=== PATIENT | male | born 1950 | race Caucasian/White ===

== ENCOUNTER 2016-05-17 12:18 | Emergency (ER) | payer MEDICARE, BC ==
[~2016-05-17 12:18] MED LIST: ANDR1.62 TOPICAL; ASPI81TA19 PO; ATOR1TAB18 PO; DIGO0.25 PO; IPRA0.03 EACH NARE; ISOS30TA3 PO; LATA0.002 EACH EYE; LEXA20TA PO; MISC1CAP2 PO; MURO5SOL EACH EYE; NITR1SUB3 SL; OXYC1TAB36 PO; RAMI5CAP PO; SPIR25TA PO; TOPR100T PO; ZANT150T2 PO; [UNRECOGNIZED DRUG - CODE] PO
[2016-05-17 12:19] VITALS: BP 139/89; PULSE 68; RESP 20; TEMP 98.8; O2SAT 99
--- NOTE | 2016-05-17 12:24 | PD ---
Physical Exam Time Seen by Provider: 12:21 Narrative 65 yowm presents for evaluation after mechanical fall. Fell yesterday , tripped over curb, broke a tooth/chipped another tooth, saw dentist yesterday. Complaining of left sided rib pain. VSS Seen at triage desk. Awaiting bed placement. Data Data Last Documented VS Vital Signs Date Time Temp Pulse Resp B/P Pulse Ox O2 Delivery O2 Flow Rate FiO2 05/17/16 12:19 98.8 68 20 139/89 99 Room Air [facility] Medical Record Reviewed: Yes Supervised Visit with LEONIE: Yes Moshe Cody May 17, 2016 12:24
--- NOTE | 2016-05-17 13:06 | PD ---
HPI Chief Complaint: Fall Time Seen by Provider: 13:06 Travel History International Travel<30 days: No Contact w/Intl Traveler<30days: No Traveled to known affect area: No History of Present Illness HPI 65-year-old legally blind male presents to the emergency Department with complaint of left rib cage pain and left wrist pain after tripping and falling yesterday while walking with his . He said he did hit his mouth and knocked his crown out which he had replaced yesterday by the dentist. He did not hit his head and denies loss of consciousness. Denies headache, lightheadedness, dizziness, change in mentation, confusion, disorientation. Denies focal deficits or weakness. Denies anticoagulants. Denies neck pain or back pain. Has been ambulatory since after the fall. Denies other extremity pain other than the left wrist pain. Denies chest pain, shortness of breath, abdominal pain, nausea, vomiting. Denies hematemesis, hematochezia, hematuria, hemoptysis. Rib cage pain is worse with certain movements and taking deep breaths. This pain is worse with movement. He takes oxycodone for chronic back pain and has been taking that with some relief of rib cage and wrist pain. No known allergies. No other medical complaints. Patient has pacemaker. No other modifying factors or associated signs and symptoms. PFSH Past Medical History Hx Anticoagulant Therapy: Yes (PT TAKES 162MG ASPIRIN DAILY) Arthritis: Yes Asthma: No Autoimmune Disease: No Blood Disorders: No Anxiety: No Depression: Yes Heart Rhythm Problems: No Cancer: No Cardiac Catheterization: Yes Cardiovascular Problems: Yes ([place] 8 YEARS AGO, 4 STENTS AND DEFIBRILLATOR) High Cholesterol: Yes Chemotherapy: No Chest Pain: No Congestive Heart Failure: Yes COPD: No Cerebrovascular Accident: No Diabetes: No Diminished Hearing: No Endocrine: No Gastrointestinal Disorders: No GERD: Yes Glaucoma: No Genitourinary: No Headaches: No Hepatitis: No Hiatal Hernia: No Hypertension: Yes Immune Disorder: No Kidney Stones: No Musculoskeletal: Yes Neurologic: Yes (NUMBNESS HANDS, HEAD, NECK, 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 Cardiac Surgery: Yes (DEFIBRILLATOR PLACED 12/13) Cholecystectomy: No Coronary Stent: Yes (4 STENTS 07/13) Ear Surgery: No Endocrine Surgery: No Eye Surgery: Yes (BILATERAL CATARACTS WITH LENS IMPLANT IN 1987, BILATERAL WITH REAPIR IN ) Genitourinary Surgery: No Gynecologic Surgery: No Hysterectomy: No Insulin Pump: No Joint Replacement: No Neurologic Surgery: Yes (CERVICAL FUSION 2000) Oral Surgery: No Pacemaker: Yes (AND DEFIB/MODELS T125/0184/4135 SERIAL [id number] TESHA) Thoracic Surgery: No Other Surgery: Yes Social History Alcohol Use: Yes (2/NIGHT) Tobacco Use: No Substance Use: No Allergies-Medications (Allergen,Severity, Reaction): Coded Allergies: No Known Allergies (Verified , 05/17/16) Reported Meds & Prescriptions Reported Meds & Active Scripts Active Reported Zantac (Ranitidine HCl) 150 Mg Tab Unknown Dose PO BID Oxycodone-Acetaminophen 10-325 mg Tab 1 Tab PO Q6H PRN Vitamin A 10,000 Unit Tab 15,000 Units PO DAILY Androgel Pump Topical (Testosterone) 1.62 % Gel 101.25 Mg TOPICAL DAILY Spironolactone 25 Mg Tab 25 Mg PO DAILY Joshua 128 Opth Drops (Sodium Chloride Opth Drops) 5% Soln 1 Drop EACH EYE BID Ramipril 5 Mg Cap 5 Mg PO DAILY @ 1400 Nitroglycerin SL (Nitroglycerin) 0.4 Mg Subl 0.4 Mg SL DIRECTED PRN ONE TABLET UNDER THE TONGUE NEEDED FOR CHEST PAIN, MAY REPEAT EVERY FIVE MINUTES FOR A TOTAL OF 3 DOSES OR CALL 911 IF NO RELIEF Saw Bety (Fourandhalf Natural Products) 1 Cap 1 Cap PO DAILY Toprol XL (Metoprolol Succinate) 100 Mg Tab 100 Mg PO DAILY Latanoprost Opth Drops (Latanoprost) 0.005% Drops 1 Drop EACH EYE HS Refrigerate until opened. Isosorbide Mononitrate ER (Isosorbide Mononitrate) 30 Mg Gibson 30 Mg PO DAILY Ipratropium Nasal 0.03% Chester 1 Chester EACH NARE TID Lexapro (Escitalopram Oxalate) 20 Mg Tab 20 Mg PO DAILY Digoxin 0.25 Mg Tab 0.25 Mg PO HS Atorvastatin (Atorvastatin Calcium) 80 Mg Tab 80 Mg PO HS Aspir-Low (Aspirin) 81 Mg Tabdr 162 Mg PO HS Review of Systems Except as stated in HPI: all other systems reviewed are Neg Physical Exam Narrative GENERAL: Well-nourished, well-developed male patient, in no acute distress; legally blind SKIN: Warm and dry. Pacemaker noted to left chest. HEAD: Atraumatic. Normocephalic. No facial or scalp abrasions or lacerations noted. EYES: Pupils equal and round at 3 mm with brisk reaction. No scleral icterus. No injection or drainage. No raccoon eyes. ENT: Mucosa pink and moist. No erythema or exudates. No uvular edema. No uvular , palatal, or tonsillar deviation. Airway patent. Nares without nasal blood, purulent drainage or septal hematoma. No rhinorrhea. EARS: Bilateral pinnae and external canals appear within normal limits. Bilateral tympanic membranes without erythema, dullness, hemotympanum or perforation. No otorrhea. No menendez signs. NECK: Moving freely. Trachea midline. No obvious deformities. CHEST: Left lateral rib cage at approximately the seventh and eighth rib with tenderness on palpation; without deformity or crepitance. No retractions or use of accessory muscles. CARDIOVASCULAR: Regular rate and rhythm. No murmur appreciated. RESPIRATORY: No accessory muscle use. Clear to auscultation. Breath sounds equal bilaterally. GASTROINTESTINAL: Abdomen soft, non-tender, nondistended. Hepatic and splenic margins not palpable. Bowel sounds are active 4 quadrants. MUSCULOSKELETAL: Left wrist with mild edema and without erythema or ecchymosis; with tenderness on palpation; with full range of motion which exacerbates pain; no obvious deformity. Left upper extremity supple and non-tense with 2+ radial pulse and sensory intact. No obvious deformities. No clubbing. No cyanosis. No edema. BACK: No obvious deformities. Patient sitting up in bed at 90. NEUROLOGICAL: Awake and alert. Oriented 3. No obvious cranial nerve deficits. Motor grossly within normal limits. Normal speech. Moves all extremities. 5/5 strength to all extremities. Sensory intact. PSYCHIATRIC: Appropriate mood and affect; insight and judgment normal. Data Data Last Documented VS Vital Signs Date Time Temp Pulse Resp B/P Pulse Ox O2 Delivery O2 Flow Rate FiO2 05/17/16 12:19 98.8 68 20 139/89 99 Room Air Orders Wrist, Complete ([id number]) (05/17/16 13:06) Ribs, Uni (W/Exp Cxr-Min 3vw) (05/17/16 13:06) Resp Incentive Spirometry (05/17/16 ) MDM Medical Decision Making Medical Screen Exam Complete: Yes Emergency Medical Condition: Yes Medical Record Reviewed: Yes Differential Diagnosis Fall, rib contusion, rib fracture, wrist sprain, wrist fracture Narrative Course 65-year-old male with left rib pain and left wrist injury after a mechanical fall yesterday. The patient is legally blind. He denies hitting his head or loss of consciousness. He did hit the front of his mouth and knocked a crown of his front tooth which he had replaced yesterday by the dentist. Denies neck pain or back pain. Patient takes oxycodone and to get this morning for chronic back pain. I did offer the patient a nonnarcotic for pain and he declined at this time. Left rib with respiratory chest x-ray ordered. Left wrist x-ray ordered. 1414: Left rib with expiratory chest x-ray unremarkable. Left wrist x-ray unremarkable. Wrist splint provided for support. Patient has pain medications at home. Incentive spirometer provided to the patient for deep breathing exercises. Patient verbalizes understanding and agreement with treatment plan. Patient is medically cleared and stable for discharge. Discussed reasons to return to the emergency department. Instructed patient to follow up with primary care provider. Patient agrees with treatment plan. The patients vital signs are stable and the patient is stable for outpatient follow-up and treatment. Patient discharged home, stable and in no acute distress. Diagnosis Primary Impression: Fall Qualified Code: W19.XXXA - Fall, initial encounter Additional Impressions: Contusion of rib on left side Qualified Code: S20.212A - Contusion of rib on left side, initial encounter Left wrist sprain Qualified Code: S63.502A - Left wrist sprain, initial encounter Referrals: Primary Care Physician Patient Instructions: Fall Prevention (ED), General Instructions, Rib Contusion (ED), Wrist Sprain (ED) Additional Instructions: Ibuprofen or Tylenol as directed and as needed for pain and inflammation Ice and/or heat to affected area to reduce pain and inflammation Incentive spirometer every 2 hours while awake for deep breathing exercises Wrist splint for support Follow-up primary care provider Return to the emergency department immediately with worsening of symptoms Med/Other Pt SpecificInfo: No Change to Meds, No Meds Exist/No RX given Disposition: 01 DISCHARGE HOME Condition: Stable Mia Juarez May 17, 2016 13:06
--- NOTE | 2016-05-17 13:54 | RADRPT ---
EXAM DATE/TIME: 05/17/2016 13:33 [facility] COMPARISON: No previous studies available for comparison. INDICATIONS : Left rib pain, fall. MEDICAL HISTORY : None. SURGICAL HISTORY : Pacemaker. ENCOUNTER: Initial ACUITY: 2 days PAIN SCORE: 8/10 LOCATION: Left lateral ribs FINDINGS: Mild cardiomegaly. Clear lungs. Pacer/ICD device noted. No obvious rib fractures. ACDF hardware overl ies the cervical spine. Degenerative changes of the thoracic and lumbar spine. CONCLUSION: No acute disease. Jason Hager MD on May 17, 2016 at 13:52 Board Certified Radiologist. This report was verified electronically.
--- NOTE | 2016-05-17 13:58 | RADRPT ---
EXAM DATE/TIME: 05/17/2016 13:44 [facility] COMPARISON: No previous studies available for comparison. INDICATIONS : Left wrist pain, fall. MEDICAL HISTORY : None. SURGICAL HISTORY : None. ENCOUNTER: Initial ACUITY: 2 days PAIN SCORE: 5/10 LOCATION: Left medial wrist FINDINGS: Normal bone density. No fracture or dislocation. Mild degenerative changes of the thumb basal joint. CONCLUSION: No acute disease. Jason Hager MD on May 17, 2016 at 13:56 Board Certified Radiologist. This report was verified electronically.
[2016-06-15] MEDS ORDERED: ASPI81CH CHEW (10:55)
[2016-07-20] MEDS ORDERED: [UNRECOGNIZED DRUG - OTHER] PO (14:52)
[2016-07-21] MEDS ORDERED: CELE50CA PO (11:28)
== END 2016-05-17 14:36 | disposition home or self-care (01) ==
LOC: NEPK 12:18
DX: S20.212A Contusion of left front wall of thorax, initial encounter (principal); S63.502A Unspecified sprain of left wrist, initial encounter; I10 Essential (primary) hypertension; E78.00 Pure hypercholesterolemia, unspecified; H54.8 Legal blindness, as defined in USA; G47.30 Sleep apnea, unspecified; W01.0XXA Fall on same level from slipping, tripping and stumbling without subsequent striking against object, initial encounter; Y93.01 Activity, walking, marching and hiking; Z79.82 Long term (current) use of aspirin; Z87.39 Personal history of other diseases of the musculoskeletal system and connective tissue; Z86.79 Personal history of other diseases of the circulatory system; Z87.19 Personal history of other diseases of the digestive system; Z86.69 Personal history of other diseases of the nervous system and sense organs; Z86.59 Personal history of other mental and behavioral disorders
CPT/HCPCS: 71101; 73110; 99284; L3908

== ENCOUNTER 2016-07-06 06:41 | Day surgery (SDC) | payer MEDICARE, BC ==
[~2016-07-06] VITALS: Ht 177.8 cm; Wt 93.0 kg
[~2016-07-06 06:41] MED LIST changes: +ASPI81CH CHEW; -ASPI81TA19 PO; -ZANT150T2 PO
[2016-07-06 07:23] VITALS: BP 134/84; PULSE 56; RESP 20; TEMP 97.8; O2SAT 96
[2016-07-06] MEDS ORDERED: DIAZEPAM 5 MG TAB PO SCH (08:00)
[2016-07-06] MEDS ORDERED: LACTATED RINGER'S 1000 ML INJ 1,000 ML IV SCH ×2 (08:00→10:23)
[2016-07-06] MEDS ORDERED: VITA80003 PO (08:05)
[2016-07-06] MEDS ORDERED: SAW450CA2 PO (08:05)
[2016-07-06 08:16] LABS: AUTOMATED NEUTROPHIL # 3.1 TH/MM3 (1.8-7.7); BASOPHIL % 0.3 % (0.0-2.0); EOSINOPHIL # 0.1 TH/MM3 (0-0.4); EOSINOPHIL % 1.3 % (0.0-4.0); HEMATOCRIT 40.6 % (39.0-51.0); HEMO FLAGS DIFF FINAL; LYMPHOCYTE # 1.3 TH/MM3 (1.0-4.8); MEAN CELL VOLUME 88.4 FL (80.0-100.0); MEAN CORPUSCULAR HEMOGLOBIN 29.5 PG (27.0-34.0); MEAN CORPUSCULAR HGB CONC 33.4 % (32.0-36.0); MONO % 11.2 % (0.0-8.0); NEUT % 61.2 % (16.0-70.0); PLATELET COUNT 236 TH/MM3 (150-450); RED BLOOD COUNT 4.59 MIL/MM3 (4.50-5.90); RED CELL DISTRIBUTION WIDTH 13.8 % (11.6-17.2)
[2016-07-06 08:26] LABS: APTT (PATIENT) 28.5 SEC (24.3-30.1); PROTHROMBIN TIME - PATIENT 11.1 SEC (9.8-11.6)
[2016-07-06 08:36] LABS: BICARBONATE 29.9 MEQ/L (21.0-32.0); POTASSIUM 4.6 MEQ/L (3.5-5.1)
--- NOTE | 2016-07-06 09:31 | PD.RAD ---
Post Procedure Progress Note Pre Procedure Diagnosis: (1) Lumbar radiculopathy Post Procedure Diagnosis: (1) Lumbar radiculopathy Procedure Date: July 06, 2016 Supervising Radiologist: Joel Anderson Proceduralist/Assist: Priya Moore, RT(R)(CV), Chasidy Mckeon RT(R) Estimated blood loss: 0 Anesthesia: Local Plan of Activity Patient to Unit: ROPU Patient Condition: Good See PACS Report for procedural detail/treatment Joel Anderson MD July 06, 2016 09:31
[2016-07-06] MEDS ORDERED: IOHEXOL 180 MG/ML 20 ML VIAL (for RAD DIAG) ONE (09:32)
--- NOTE | 2016-07-06 09:38 | RADRPT ---
EXAM DATE/TIME: 07/06/2016 09:44 [facility] COMPARISON: No previous studies available for comparison. INDICATIONS : Patient with history of chronic low back pain in need of lumbar myelogram. MEDICAL HISTORY : CAD, CHF, HLD, HTN, DE, BPH, Osteoarthritis, DDD SURGICAL HISTORY : Coronary stent, Pacemaker, Appendectomy, Spinal surgery ENCOUNTER: Initial ACUITY: 4-6 months PAIN SCORE: 0/10 LUMBAR PUNCTURE TIME: 0904 hours FLUORO TIME: 0.6 minutes IMAGE SERIES: 8 CONTRAST: 12 cc Omnipaque (iohexol) 180 ACCESS LEVEL: L2-3 PROCEDURE : 1. Fluoroscopic guided lumbar puncture. 2. Lumbar myelogram. The risks, benefits and alternatives to the procedure were explained and verbal and written consent w as obtained. The site was prepped in sterile fashion. Full sterile technique was used, including ca p, mask, sterile gloves and gown and a large sterile sheet. Hand hygiene and 2% chlorhexidine and/or betadine/alcohol prep was utilized per protocol for cutaneous antisepsis. The skin and subcutaneous tissues were infiltrated with local anesthetic solution. With fluoroscopic guidance the lumbar thecal sac was punctured at level above and a diagnostic quanti ty of contrast is present in the subarachnoid space. Radiographs were obtained of the lumbar spine. The patient tolerated procedure well and there were no complications. CT scan is to be performed for further evaluation. CONCLUSION: Uncomplicated lumbar myelogram as above. CT scan is to be performed for further evaluation. Joel Anderson MD on July 06, 2016 at 9:35 Board Certified Radiologist. This report was verified electronically.
[2016-07-06 10:00] VITALS: BP 131/77; PULSE 49; RESP 20; TEMP 97.5; O2SAT 96
[2016-07-06] MEDS ORDERED: ACETAMINOPHEN 325 MG TAB PO PRN (10:30)
[2016-07-06] MEDS ORDERED: ONDANSETRON HCL 4 MG/2 ML VIAL IV PRN (10:30)
[2016-07-06] MEDS ORDERED: MORPHINE SULFATE 4 MG/ML INJ IM PRN (10:30)
[2016-07-06 12:45] VITALS: BP 126/80; PULSE 56; RESP 18; O2SAT 95
--- NOTE | 2016-07-06 13:33 | RADRPT ---
EXAM DATE/TIME: 07/06/2016 09:37 [facility] COMPARISON: CT LUMBAR SPINE W/O CONTRAST, December 30, 2015, 17:24. INDICATIONS : Post myelogram. RADIATION DOSE: 39.12 CTDIvol (mGy) CT of thelumbar spine was performed post myelogram. MEDICAL HISTORY : Hypertension. Cardiovascular disease SURGICAL HISTORY : Defibrillator. Appendectomy.Discectomy, lumbar. ENCOUNTER: Initial ACUITY: 1 day PAIN SCALE: 2/10 LOCATION: lower back TECHNIQUE: Volumetric scanning of the lumbar spine was performed. Multiplanar reconstructions in the sagittal, coronal and oblique axial planes were performed. Using automated exposure control and adjustment of the mA and/or kV according to patient size, radiation dose was kept as low as reasonably achievable t o obtain optimal diagnostic quality images. FINDINGS: VERTEBRAE: Normal vertebral body height. ALIGNMENT: Subtle dextroscoliosis of the lower lumbar spine. T12-L1: Vacuum disc phenomenon and mild diffuse disc bulge and narrowing the central canal to 10.4 mm. There is moderate right caudal frontal narrowing due to disc osteophyte complex. L1-L2: Right descending trachea and moderate to severe disc bulge, mild bilateral facet arthropathy, and lig amentum flavum hypertrophy. resulting in severe central canal stenosis. The central canal measures ap proximately 7 mm. There is moderate caudal right neural foraminal narrowing. L2-L3: Severe disc space loss with vacuum disc phenomenon and osteophyte formation and endplate sclerosis. C entral canal is narrowed to 10 mm secondary to posterior osteophytes, mild bilateral facet arthropath y, and ligamentum flavum hypertrophy. There is effacement of the anterior lateral recess bilaterally. Moderate to severe caudal neuroforaminal narrowing on the right due to osteophytes. Mild to moderate neuroforaminal narrowing on the left due to disc osteophyte complex. L3-L4: Severe disc space loss with vacuum disc phenomenon and osteophyte formation. Mild bilateral facet art hropathy. Significant ligamentum flavum hypertrophy. There is resultant anterior effacement of the th ecal sac just above the disc level with effacement of the anterior left lateral recess. Central canal measures 13 mm. Moderate severe left neuroforaminal narrowing secondary to osteophyte. Severe right neuroforaminal narrowing secondary to disc osteophyte complex with impingement of the exiting nerve r oot. L4-L5: Severe disc space loss with vacuum disc phenomenon and osteophyte formation. Right hemilaminectomy. M oderate bilateral facet arthropathy and ligamentum flavum hypertrophy. Moderate left and mild to mode rate right neural frontal narrowing secondary to osteophyte. L5-S1: Diffuse disc bulge with effacement of the anterior thecal sac. Moderate bilateral facet arthropathy. Mild caudal bilateral neural foraminal narrowing. CONCLUSION: 1. Redemonstration of pronounced multilevel degenerative spondylosis with varying degrees of central canal and neuroforaminal stenosis. 2. Most prominent abnormalities correspond to L1-2 with severe central canal narrowing and L3-L4 with severe right neural foraminal narrowing. 3. Redemonstration of right hemilaminectomy changes at L4-5. Joel Anderson MD on July 06, 2016 at 11:42 Board Certified Radiologist. This report was verified electronically.
[2016-07-20] MEDS ORDERED: [UNRECOGNIZED DRUG - OTHER] PO (14:52)
[2016-07-21] MEDS ORDERED: CELE50CA PO (11:28)
== END 2016-07-06 14:38 | disposition home or self-care (01) ==
LOC: HROP 06:41 → HRIP 06:45 → HROP 14:38
PROVIDERS: ATTEND Neurological Surgery
DX: G89.29 Other chronic pain (principal); M54.16 Radiculopathy, lumbar region; M19.90 Unspecified osteoarthritis, unspecified site; I11.0 Hypertensive heart disease with heart failure; I50.9 Heart failure, unspecified; I25.10 Atherosclerotic heart disease of native coronary artery without angina pectoris; E78.5 Hyperlipidemia, unspecified; N40.0 Benign prostatic hyperplasia without lower urinary tract symptoms; Z95.5 Presence of coronary angioplasty implant and graft; Z95.0 Presence of cardiac pacemaker
CPT/HCPCS: 62304; 72131; 80048; 85025; 85610; 85730; J7120; Q9965

== ENCOUNTER → 2016-10-20 | Outpatient (CLI) | payer MEDICARE, BC ==
[~2016-10-20] MED LIST changes: +CELE200C PO; +ESCI20TA PO; -LEXA20TA PO; -MISC1CAP2 PO; +SAW450CA2 PO; +VITA80003 PO; -[UNRECOGNIZED DRUG - CODE] PO
[2016-10-20 08:50] LABS: HEMATOCRIT 41.4 % (39.0-51.0); MEAN CELL VOLUME 90.4 FL (80.0-100.0); MEAN CORPUSCULAR HEMOGLOBIN 30.3 PG (27.0-34.0); MEAN CORPUSCULAR HGB CONC 33.6 % (32.0-36.0); PLATELET COUNT 225 TH/MM3 (150-450); RED BLOOD COUNT 4.58 MIL/MM3 (4.50-5.90); RED CELL DISTRIBUTION WIDTH 13.7 % (11.6-17.2); REVIEW FLAG FINAL; WHITE BLOOD COUNT 6.7 TH/MM3 (4.0-11.0)
[2016-10-20 09:00] LABS: APTT (PATIENT) 26.3 SEC (24.3-30.1); PROTHROMBIN TIME - PATIENT 10.8 SEC (9.8-11.6)
[2016-10-20 09:32] LABS: ANION GAP 3 MEQ/L (5-15); AST (GOT) 24 U/L (15-37); BICARBONATE 30.3 MEQ/L (21.0-32.0); BLOOD UREA NITROGEN 16 MG/DL (7-18); CHLORIDE 105 MEQ/L (98-107); GLOMERULAR FILTRATION RATE 89 ML/MIN (>89); GLUCOSE,FASTING 94 MG/DL (74-99); POTASSIUM 4.7 MEQ/L (3.5-5.1); SODIUM (NA) 138 MEQ/L (136-145)
[2016-10-20 09:33] LABS: ALT (GPT) 33 U/L (12-78)
[2016-10-20 09:35] LABS: ALKALINE PHOSPHATASE 69 U/L (45-117); TOTAL BILIRUBIN ADULT 0.7 MG/DL (0.2-1.0)
--- NOTE | 2016-10-20 09:46 | RADRPT ---
EXAM DATE/TIME: 10/20/2016 09:07 [facility] COMPARISON: No previous studies available for comparison. INDICATIONS : Evaluate for pneumonia, pneumothorax or communicable disease. Pre op for SI joint fusion 10-25-16 MEDICAL HISTORY : Myocardial infarction. SURGICAL HISTORY : Pacemaker. Coronary artery stent x 4, defibrillator ENCOUNTER: Initial ACUITY: 1 day PAIN SCORE: 0/10 LOCATION: Bilateral chest FINDINGS: A left subclavian dual lead pacemaker has its tips in the right atrium and right ventricle. There is no pneumothorax. The heart and mediastinal structures are normal. The pulmonary vascular pattern i s normal. The lungs are clear. CONCLUSION: No acute cardiopulmonary disease. Maxim Metcalf MD on October 20, 2016 at 9:26 Board Certified Radiologist. This report was verified electronically.
--- NOTE | 2016-10-20 20:10 | EKG ---
Date Performed: 10/20/2016 Time Performed: 08:01:05 PTAGE: 65 years EKG: SINUS BRADYCARDIA WITH FIRST DEGREE AV BLOCK POOR INITIAL ANTERIOR FORCES V1 THROUGH V3 NON SPECIFIC T WAVE CHANGE ANTEROLATERALY SINCE PREVIOUS TRACING 02/22/2007, T WAVE CHANGES SLIGHTLY MORE PROMINENT, OTHERWISE NO SIGNIFICANT CHANGE. ABNORMAL ECG PREVIOUS TRACING : 02/22/2007 22.52 DOCTOR: Reece Choi Interpretating Date/Time 10/20/2016 20:09:00
== END ==
LOC: CPRE 08:24
PROVIDERS: ATTEND Neurological Surgery
DX: Z01.812 Encounter for preprocedural laboratory examination (principal); Z01.810 Encounter for preprocedural cardiovascular examination; Z01.811 Encounter for preprocedural respiratory examination; M53.3 Sacrococcygeal disorders, not elsewhere classified; M51.36 Other intervertebral disc degeneration, lumbar region; Z79.01 Long term (current) use of anticoagulants
CPT/HCPCS: 36415; 71020; 80053; 85027; 85610; 85730; 93005

== ENCOUNTER 2016-11-01 05:37 | Inpatient (IN) | payer MEDICARE, BC ==
[~2016-11-01] VITALS: Ht 179.1 cm; Wt 90.5 kg
[2016-11-01] MEDS ORDERED: METOPROLOL TARTRATE 25 MG TAB PO PRN (06:45)
[2016-11-01] MEDS ORDERED: LACTATED RINGER'S 1000 ML IV PRN (06:45)
[2016-11-01] MEDS ORDERED: LACTATED RINGER'S 1000 ML INJ 1,000 ML IV SCH (06:45)
[2016-11-01] MEDS ORDERED: SODIUM CHLORID 0.9% 500 ML IV PRN (06:45)
[2016-11-01] MEDS ORDERED: CHLORHEXIDINE GLUCONATE 2 % 1 PACK (2 CLOTHS) TOPICAL PRN (06:45)
[2016-11-01] MEDS ORDERED: ceFAZolin 1,000 MG/NS 100 ML IV SCH ×2 (06:45)
[2016-11-01] MEDS ORDERED: POVIDONE IODINE 5% (ANTISEPSIS KIT) 4 APPLICATIONS EACH NARE PRN (06:45)
[2016-11-01] MEDS ORDERED: INSULIN HUMAN REGULAR 1,000 UNITS/10 ML VIAL SQ PRN (06:45)
[2016-11-01] MEDS ORDERED: GENTAMICIN SULFATE 80 MG/2 ML VIAL ONE (08:15)
[2016-11-01] MEDS ORDERED: THROMBIN (TOPICAL) 5,000 UNIT VIAL ONE (08:15)
[2016-11-01] MEDS ORDERED: GELFOAM SIZE 100 ONE (08:15)
[2016-11-01] MEDS ORDERED: ACETAMINOPHEN 1000 MG/100 ML 100 ML IV ONE (08:33)
[2016-11-01] MEDS ORDERED: BUPIVACAINE/EPINEPHRINE 0.25% 50 ML VIAL ONE (09:45)
[2016-11-01] MEDS ORDERED: ePHEDrine/NS 25 MG/5 ML SYR IV ONE (12:00)
[2016-11-01] MEDS ORDERED: SODIUM CHLORID 0.9% 500 ML INJ 500 ML IV ONE (12:00)
[2016-11-01] MEDS ORDERED: LIDOCAINE HCL 1% PF 5 ML AMPULE OTHER ONE (12:00)
[2016-11-01] MEDS ORDERED: ROCURONIUM INJ 50 MG/5 ML SYRINGE IV PUSH ONE (12:00)
[2016-11-01] MEDS ORDERED: ceFAZolin INJ 1,000 MG VIAL IV ONE (12:00)
[2016-11-01] MEDS ORDERED: PROPOFOL 200 MG/20 ML AMP IV ONE (12:00)
[2016-11-01] MEDS ORDERED: LACTATED RINGER'S 1000 ML INJ 1,000 ML IV ONE (12:00)
[2016-11-01] MEDS ORDERED: ONDANSETRON HCL 4 MG/2 ML VIAL IV PUSH ONE (12:00)
[2016-11-01] MEDS ORDERED: NEOSTIGMINE 3 MG/3 ML SYR IV ONE (12:00)
[2016-11-01] MEDS ORDERED: DEXAMETHASONE SOD PHOS 4 MG/ML VIAL IV ONE (12:00)
[2016-11-01] MEDS ORDERED: GLYCOPYRROLATE 1 MG/5 ML SYRINGE IV PUSH ONE (12:00)
[2016-11-01] MEDS ORDERED: OXYC1TAB36 PO (12:39)
[2016-11-01] MEDS ORDERED: DO NOT ADM ANY ANTICOAGULANT DRUGS PRN (12:42)
--- NOTE | 2016-11-01 12:43 | HHI.DCPOC ---
Discharge Care Plan Diagnosis: (1) Chronic right SI joint pain Your Health Problems Are: Difficulty with ADL Incision/Drains Chronic Pain Goals to Promote Your Health * To prevent worsening of your condition and complications * To maintain your health at the optimal level Directions to Meet Your Goals Take your medications as prescribed Follow your dietary instruction Follow activity as directed Keep your appointments as scheduled Take your immunizations and boosters as scheduled If your symptoms worsen call your PCP, if no PCP go to Urgent Care Center or Emergency Room Smoking is Dangerous to Your Health. Avoid second hand smoke Call the 24-hour hour crisis hotline for domestic abuse at Malachi Patricio MD Nov 01, 2016 12:43
[2016-11-01] MEDS ORDERED: NALOXONE HCL 0.4 MG/ML AMP IV PUSH PRN (12:45)
[2016-11-01] MEDS ORDERED: HYDROmorphone HCL PF 1 MG/ML VIAL IV PUSH PRN (12:45)
[2016-11-01] MEDS ORDERED: oxyCODONE/ACETAMINOPHEN 10 MG/325 MG TAB PO PRN (12:45)
[2016-11-01] MEDS ORDERED: MORPHINE SULFATE 4 MG/ML INJ IV PUSH PRN (12:45)
[2016-11-01] MEDS ORDERED: SODIUM CHLORIDE 0.9% FLUSH 5 ML FLUSH IVF PRN (12:45)
[2016-11-01] MEDS ORDERED: oxyCODONE/ACETAMINOPHEN 5 MG/325 MG TAB PO PRN (12:45)
--- NOTE | 2016-11-01 12:50 | PD.OP ---
Operative Report Date of Surgery: Nov 01, 2016 Preoperative Diagnosis: (1) Chronic right SI joint pain Postoperative Diagnosis: (1) Chronic right SI joint pain Procedure: Right Sacro - iliac joint fusion, open direct sacroileac joint visualization Anesthesia: General Surgeon: Malachi Patricio Manager Software(s): Maxim Meyer Operation and Findings: Procedure in detail: The patient was brought into the operating room and general endotracheal anesthesia induced without difficulty Phelps catheter DANIEL hose and sequential compression devices were placed Lines were established. Anesthesia The patient was placed in prone position on the concentric Juaquin table with side bolsters placed in order to keep the lumbosacral junction slightly flexed. The lumbosacral region was prepped and draped in a sterile fashion Appropriate time-out procedure was performed with all personal present and in agreement Using AP lateral and oblique C-arm images, the right sacroiliac joint was located. The trajectories for the 3 sacroiliac joint fusion devices were determined by initial placement of a guidewire into the sacroiliac joint through the skin using the C-arm imaging. 1% lidocaine with epinephrine was used for local infiltration over the 3 incision sites at the guidewire entry point to the skin. The 10 blade knife and dilators were used to enlarge the tissue opening towards the sacroiliac joint at each incision site. The SI joint was directly visualized at each level through the dilator, and the tissue along the sacroiliac joint at each device placement site was incised directly with the 15 blade knife on the long handle. Using direct visualization, the joint estimator binding was placed into the sacroiliac joint at each implant placement site. The cannula was then placed over the joint estimator binding and tapped into place using the tapping. Placement was checked with intraoperative C-arm and direct visualization. The guide pin and joint estimator binding were then removed from the cannula sequentially at each site and the cannula gently impacted to make certain that it was seated properly. The drill guide was then inserted into the cannula sequentially at each implant placement site, and the off centered hole medial to the sacrum was drilled first followed by drilling in the center hole, the medial hole, with a confirming drill at the center hole. The cancellus sponge was then placed sequentially at each implant site followed by the SiJoin implant which was placed using the implant tamp through the cannula. An additional cancellus sponge was then tamped against the implant through the cannula. The cannula was then carefully removed, keeping the last cancellus sponge in proper position. The implant and sponge were directly visualized through the dilator placed at each level prior to removal of the cannula. All regions were gently irrigated with antibiotic irrigation. The closure was performed at each incision site with 2-0 Vicryl for the deep fascia, 3-0 Vicryl subcutaneous, 4-0 Vicryl subcuticular. A dressing of sterile Mastisol, Steri-Strips, Primapore was placed. The proper implant placement was verified with intraoperative C-arm imaging. They were felt to be satisfactory. The patient was transferred to the recovery room bed and taken to recovery room in stable condition. All counts were correct at the end of the case Estimated blood loss was 40 cc. No specimen was sent to pathology. Malachi Patricio MD Nov 01, 2016 12:50
[2016-11-01] MEDS ORDERED: *morphine SULFATE 8 MG/ML PERIprocedure ONLY ONE (13:01)
[2016-11-01] MEDS ORDERED: D5-1/2 NS + KCL 20 MEQ INJ 1,000 ML IV SCH (14:00)
[2016-11-01 14:39] VITALS: BP 121/74; PULSE 66; RESP 18; TEMP 97.7; O2SAT 96
--- NOTE | 2016-11-01 15:11 | RADRPT ---
EXAM DATE/TIME: 11/01/2016 10:22 [facility] COMPARISON: No previous studies available for comparison. INDICATIONS : Right SI joint implant placement. OR. MEDICAL HISTORY : Myocardial infarction. SURGICAL HISTORY : Pacemaker. coronary artery stent x 4, defibrillator ENCOUNTER: Initial ACUITY: 1 day PAIN SCORE: Non-responsive. LOCATION: Right SI joint FINDINGS: 3 spot intraoperative fluoroscopic views of the right sacroiliac joint are obtained demonstrating 3 r adiodensities overlying the sacrum on the right. CONCLUSION: Limited views of the sacrum obtained intraoperatively. Jason Hager MD on November 01, 2016 at 15:09 Board Certified Radiologist. This report was verified electronically.
[2016-11-01] MEDS ORDERED: SODIUM CHLORIDE 0.9% FLUSH 5 ML FLUSH IVF SCH (21:00)
== END 2016-11-01 14:40 | disposition home or self-care (01) | DRG 460 ==
LOC: HSDC 05:37 → HSDI 12:47
PROVIDERS: ADMIT Neurological Surgery; ATTEND Neurological Surgery
PROC: 0SG70JZ Fusion of Right Sacroiliac Joint with Synthetic Substitute, Open Approach (ICD-10-PCS; 2016-11-01)
PROC: 0SG70KZ Fusion of Right Sacroiliac Joint with Nonautologous Tissue Substitute, Open Approach (ICD-10-PCS; principal; 2016-11-01 08:48)
DX: M53.3 Sacrococcygeal disorders, not elsewhere classified (principal); I11.0 Hypertensive heart disease with heart failure; I50.9 Heart failure, unspecified; E78.5 Hyperlipidemia, unspecified; I25.10 Atherosclerotic heart disease of native coronary artery without angina pectoris; F10.10 Alcohol abuse, uncomplicated; G47.30 Sleep apnea, unspecified; Z95.810 Presence of automatic (implantable) cardiac defibrillator; Z87.891 Personal history of nicotine dependence; Z95.5 Presence of coronary angioplasty implant and graft; I25.2 Old myocardial infarction
CPT/HCPCS: 72200; 76000; C1713; J0131; J0690; J1100; J1580; J2270; J2405; J2710; J3010; J7040; J7120

== ENCOUNTER → 2017-03-07 | Day surgery (SDC) | payer MEDICARE, BC ==
[~2017-03-07] MED LIST changes: +ASPI-516 CHEW; -ASPI81CH CHEW; -ATOR1TAB18 PO; +ATOR80TA45 PO; +BUPIVACAINE HCL PF 0.75% 30 ML VIAL ONE; +CELE1CAP8 PO; -CELE200C PO; +LIDO1ADH4 TD; +PROPOFOL 200 MG/20 ML AMP IV ONE; +TRIAMCINOLONE ACETONIDE 40 MG/ML VIAL I-ARTICULR ONE
--- NOTE | 2017-03-09 13:36 | M6 ---
cc: JUDITH MOLINA M.D. DATE 03/07/2017 DATE OF 1950 PROCEDURE Fluoroscopically guided right thoracic facet joints and fluoroscopically guided right lumbar facet joints. History and physical was completed and signed. Consent was signed. Procedure site was marked. Medications were listed and reconciled. Pain score was recorded. Allergies were noted. Time out was taken. Fluoroscopy time was recorded where applicable. Sedation was administered or directed by Dr. Molina. The patient was given oxygen. The patient was monitored by a registered nurse. Total procedure time was greater than 15 minutes. PROCEDURE NOTE IV was started. Blood pressure cuff, pulse oximeter and EKG were applied. The patient was placed in the prone position on a Juaquin table, sedated with small amounts of propofol titrated to effect. Vital signs were monitored and remained stable throughout the procedure. The thoracic and lumbar area was prepped with alcohol and 10% Betadine solution and draped with sterile drapes. Fluoroscopy was used in a Yann dog view to clearly visualize the right thoracic and lumbar facet joints at T10, T11, T12, L1, L2 and L3. Separate sterile 3-1/2-inch, 25-gauge spinal needles were advanced to these joints under fluoroscopic guidance. There was negative aspiration for blood or any other type of fluid and at each location the patient was given 1 mL of Marcaine 0.5% which contained 10 mg of Kenalog. Following the procedure the patient was taken to the recovery room with stable vital signs, neurologically intact. He will be evaluated immediately and with followup to determine if he has a subjective decrease in his usual pain and a corresponding objective increase in his functional capabilities. W. Chau Molina MD WRNasim/JOHNNIE /10:25 AM /1:25 PM
== END | disposition home or self-care (01) ==
LOC: PHSDC 08:42
PROVIDERS: ATTEND Pain Medicine Interventional Pain Medicine
DX: M54.89 Other dorsalgia (principal); M25.551 Pain in right hip
CPT/HCPCS: 64490; 64491; 64492; 64493; 64494; 64495; 99152; J3301

== ENCOUNTER 2017-04-05 09:42 | Inpatient (IN) | payer MEDICARE, BC ==
[2017-04-05] VITALS (9 sets, daily range): BP systolic 113–148; BP diastolic 69–98; PULSE 62–82; RESP 12–17; TEMP 98.1–98.9; O2SAT 96–100
[~2017-04-05] VITALS: Ht 177.8 cm; Wt 92.0 kg
[~2017-04-05 09:42] MED LIST changes: -BUPIVACAINE HCL PF 0.75% 30 ML VIAL ONE; -PROPOFOL 200 MG/20 ML AMP IV ONE; -TRIAMCINOLONE ACETONIDE 40 MG/ML VIAL I-ARTICULR ONE
[2017-04-05] MEDS ORDERED: ZANT150T2 PO (10:12)
[2017-04-05] MEDS ORDERED: [UNRECOGNIZED DRUG - REMARK] (10:12)
[2017-04-05] MEDS ORDERED: ASPIRIN 325 MG TAB PO ONE (10:15)
[2017-04-05] MEDS ORDERED: SODIUM CHLORIDE 0.9% FLUSH 10 ML FLUSH IVF PRN (10:15)
--- NOTE | 2017-04-05 10:23 | PD ---
HPI Chief Complaint: Chest Pain Time Seen by Provider: 09:59 Travel History International Travel<30 days: No Contact w/Intl Traveler<30days: No Traveled to known affect area: No History of Present Illness HPI This patient complains of chest pain. He was the middle of cardiac rehabilitation and exercising on a recumbent bicycle. He developed a central chest burning and pressure. He says this felt a bit like heartburn. However it felt exactly like his symptoms when he had his heart attack. He has history of 4 cardiac stents. No catheterization in the last 10 years but he reports having a stress test some are around 4-6 months ago. Symptoms severity was moderate. When he got off the bicycle his chest symptoms went away. He is currently pain-free. Duration 3 minutes. Symptoms are alleviated by rest. Symptoms were exacerbated by exertion. PFSH Past Medical History Hx Anticoagulant Therapy: Yes (PT TAKES 162MG ASPIRIN DAILY) Arthritis: Yes Asthma: No Autoimmune Disease: No Blood Disorders: No Anxiety: No Depression: Yes Heart Rhythm Problems: No Cancer: No Cardiac Catheterization: Yes Cardiovascular Problems: Yes ([place] 10 YEARS AGO, 4 STENTS WITH AICD) High Cholesterol: Yes Chemotherapy: No Chest Pain: No Congestive Heart Failure: Yes COPD: No Cerebrovascular Accident: No Diabetes: No Diminished Hearing: No Endocrine: No Gastrointestinal Disorders: No GERD: Yes Glaucoma: No Genitourinary: No Headaches: No Hepatitis: No Hiatal Hernia: No Hypertension: Yes Immune Disorder: No Kidney Stones: No Musculoskeletal: Yes Neurologic: Yes (NUMBNESS HANDS, HEAD, NECK, SHOULDERS ) Psychiatric: Yes (DEPRESSION HX) Reproductive: No Respiratory: No Immunizations Current: Yes Migraines: No Myocardial Infarction: Yes (07/13) Radiation Therapy: No Renal Failure: No Seizures: No Sickle Cell Disease: No Sleep Apnea: Yes Thyroid Disease: No Ulcer: No Influenza Vaccination: Yes PNEUMOCCOCAL Vaccine (Year): 2006 Past Surgical History Abdominal Surgery: Yes (APPENDECTOMY) AICD: Yes (TESHA VITALITY DS/MODEL T125 DR SERIAL [id number]) Appendectomy: Yes ( 01/03/06) Arteriovenous Shunt: No Body Medical Devices: PLATES AND SCREWS IN CERVICAL SPINE. Cardiac Surgery: Yes (AICD PLACED 12/13) Cholecystectomy: No Coronary Stent: Yes (4 STENTS 07/13) Ear Surgery: No Endocrine Surgery: No Eye Surgery: Yes (BILATERAL CATARACTS WITH LENS IMPLANT IN 1987, BILATERAL WITH REAPIR IN ) Genitourinary Surgery: No Gynecologic Surgery: No Hysterectomy: Yes () Insulin Pump: No Joint Replacement: No Neurologic Surgery: Yes (CERVICAL FUSION 2000) Oral Surgery: No Pacemaker: Yes (AND DEFIB/MODELS T125/0184/4135 SERIAL [id number] TESHA) Thoracic Surgery: No Other Surgery: Yes Social History Alcohol Use: Yes (2-3 liquor/NIGHT) Tobacco Use: No Substance Use: No Allergies-Medications (Allergen,Severity, Reaction): Coded Allergies: No Known Allergies (Verified Adverse Reaction, Unknown, 04/05/17) Reported Meds & Prescriptions Reported Meds & Active Scripts Active Lidoderm (Lidocaine) 5 % Adh..patch 1 Patch TD DAILY Apply 1 patch daily to right low back and right lateral hip as needed for pain control Oxycodone-Acetaminophen 10-325 mg Tab 1 Tab PO Q6H PRN Reported [unknown heartburn] Zantac (Ranitidine HCl) 150 Mg Tab 150 Mg PO DAILY Celecoxib 200 Mg Cap 200 Mg PO BID Aspirin 81 Mg Chew 162 Mg CHEW DAILY Escitalopram (Escitalopram Oxalate) 20 Mg Tab 20 Mg PO HS Vitamin A 8,000 Unit Capsule 1 Cap PO BID Saw Brayton (Serenoa Repens) 450 Mg Cap 1 Cap PO DAILY Androgel Pump Topical (Testosterone) 1.62 % Gel 101.25 Mg TOPICAL DAILY Spironolactone 25 Mg Tab 25 Mg PO DAILY Joshua 128 Opth Drops (Sodium Chloride Opth Drops) 5% Soln 1 Drop EACH EYE BID Ramipril 5 Mg Cap 5 Mg PO DAILY @ 1400 Nitroglycerin SL (Nitroglycerin) 0.4 Mg Subl 0.4 Mg SL DIRECTED PRN ONE TABLET UNDER THE TONGUE NEEDED FOR CHEST PAIN, MAY REPEAT EVERY FIVE MINUTES FOR A TOTAL OF 3 DOSES OR CALL 911 IF NO RELIEF Toprol XL (Metoprolol Succinate) 100 Mg Tab 100 Mg PO DAILY Latanoprost Opth Drops (Latanoprost) 0.005% Drops 1 Drop EACH EYE HS Refrigerate until opened. Isosorbide Mononitrate ER (Isosorbide Mononitrate) 30 Mg Gibson 30 Mg PO DAILY Ipratropium Nasal 0.03% [place] 1 [place] EACH NARE TID Digoxin 0.25 Mg Tab 0.125 Mg PO HS Atorvastatin (Atorvastatin Calcium) 80 Mg Tab 80 Mg PO HS Review of Systems General / Constitutional: No: Fever Eyes: No: Visual changes HENT: No: Headaches Cardiovascular: Positive: Chest Pain or Discomfort Respiratory: No: Shortness of Breath Gastrointestinal: No: Abdominal Pain Genitourinary: No: Dysuria Musculoskeletal: No: Pain Skin: No Rash Neurologic: No: Weakness Psychiatric: No: Depression Endocrine: No: Polydipsia Hematologic/Lymphatic: No: Easy Bruising Physical Exam Narrative GENERAL: Well-nourished, well-developed patient in no apparent distress. SKIN: Focused skin assessment reveals no rash and nodules. Skin is Warm and dry. HEAD: Atraumatic. Normocephalic. EYES: Pupils equal and round. No scleral icterus. No injection or drainage. ENT: No nasal bleeding or discharge. Mucous membranes pink and moist. NECK: Trachea midline. No JVD. CARDIOVASCULAR: Regular rate and rhythm. No murmur appreciated. RESPIRATORY: No accessory muscle use. Clear to auscultation. Breath sounds equal bilaterally. GASTROINTESTINAL: Abdomen soft, non-tender, nondistended. Hepatic and splenic margins not palpable. MUSCULOSKELETAL: No obvious deformities. No clubbing. No cyanosis. No edema. NEUROLOGICAL: Awake and alert. No obvious cranial nerve deficits. Motor grossly within normal limits. Normal speech. PSYCHIATRIC: Appropriate mood and affect; insight and judgment normal. Data Data Last Documented VS Vital Signs Date Time Temp Pulse Resp B/P (MAP) Pulse Ox O2 Delivery O2 Flow Rate FiO2 04/05/17 12:12 69 12 113/69 (84) 96 Room Air 04/05/17 10:00 98.9 Orders Orders Electrocardiogram (04/05/17 10:12) Basic Metabolic Panel (Bmp) (04/05/17 10:12) Ckmb (Isoenzyme) Profile (04/05/17 10:12) Complete Blood Count With Diff (04/05/17 10:12) Magnesium (Mg) (04/05/17 10:12) Prothrombin Time / Inr (Pt) (04/05/17 10:12) Act Partial Throm Time (Ptt) (04/05/17 10:12) Troponin I (04/05/17 10:12) Chest, Single Ap (04/05/17 10:12) Ecg Monitoring (04/05/17 10:12) Iv Access Insert/Monitor (04/05/17 10:12) Oximetry (04/05/17 10:12) Aspirin (Aspirin) (04/05/17 10:15) Sodium Chloride 0.9% Flush (Ns Flush) (04/05/17 10:15) CKMB (04/05/17 09:57) CKMB% (04/05/17 09:57) Admit To Inpatient (04/05/17 ) Vital Signs (Adult) Q4H (04/05/17 13:59) Activity Oob With Assistance (04/05/17 13:59) Clinic Office Manager / Telemetry .CONTINUOUS (04/05/17 13:59) Intake + Output MARIA D.QSHIFT (04/05/17 13:59) Diet Heart Healthy (04/05/17 Lunch) Sodium Chloride 0.9% Flush (Ns Flush) (04/05/17 14:00) Sodium Chloride 0.9% Flush (Ns Flush) (04/05/17 21:00) Acetaminophen (Tylenol) (04/05/17 14:00) Ondansetron Inj (Zofran Inj) (04/05/17 14:00) Temazepam (Restoril) (04/05/17 14:00) Basic Metabolic Panel (Bmp) (04/06/17 06:00) Complete Blood Count With Diff (04/06/17 06:00) Troponin I (04/05/17 13:59) Troponin I (04/05/17 16:59) Electrocardiogram (04/05/17 13:59) Electrocardiogram (04/05/17 16:59) Resp Oxygen Ari C Titrat 1-4 L (04/05/17 ) Pt Request For Service (04/05/17 13:59) Case Management Consult (04/05/17 13:59) Enoxaparin Inj (Lovenox Inj) (04/05/17 14:00) Scd Bilateral/Knee High MARIA D.BID (04/05/17 13:59) Sravan Bilateral/Knee High MARIA D.QSHIFT (04/05/17 13:59) Naloxone Inj (Narcan Inj) (04/05/17 14:00) Docusate Sodium-Senna (Luisa-Colace) (04/05/17 21:00) Magnesium Hydroxide Liq (Milk Of Magnesi (04/05/17 14:00) Sennosides (Senokot) (04/05/17 14:00) Bisacodyl Supp (Dulcolax Supp) (04/05/17 14:00) Lactulose Liq (Lactulose Liq) (04/05/17 14:00) Inpatient Certification (04/05/17 ) Aspirin Chew (Aspirin Chew) (04/06/17 09:00) Atorvastatin (Lipitor) (04/05/17 21:00) Celecoxib (Celebrex) (04/05/17 21:00) Digoxin (Lanoxin) (04/05/17 21:00) Escitalopram (Lexapro) (04/05/17 21:00) Isosorbide Mononitrate (Imdur) (04/06/17 09:00) Latanoprost 0.005% Opth Soln (Xalatan 0. (04/05/17 21:00) Lidocaine 5% Patch.12 Hr (Lidoderm 5% Pa (04/06/17 09:00) Metoprolol Succinate Er (Toprol Xl) (04/06/17 09:00) Oxycodone-Acetamin 10-325 Mg (Percocet 1 (04/05/17 14:15) Ramipril (Altace) (04/06/17 09:00) Sodium Chloride 5% Opth (Adsorbonac 5% O (04/05/17 21:00) Spironolactone (Aldactone) (04/06/17 09:00) (Nf) Ipratropium Nasal (04/05/17 18:00) (Nf) Ranitidine (Zantac) (04/06/17 09:00) (Nf) Testosterone Topical (Androgel Pump (04/06/17 09:00) Nitroglycerin Sl (Nitrostat Sl) (04/05/17 14:15) Morphine Inj (Morphine Inj) (04/05/17 14:15) Consult Cardiology (04/05/17 ) Lipid Profile (04/05/17 14:09) Admit Order (Ed Use Only) (04/05/17 14:27) Labs Laboratory Tests Test 04/05/17 09:57 White Blood Count 5.9 TH/MM3 Red Blood Count 4.66 MIL/MM3 Hemoglobin 14.1 GM/DL Hematocrit 42.2 % Mean Corpuscular Volume 90.5 FL Mean Corpuscular Hemoglobin 30.3 PG Mean Corpuscular Hemoglobin Concent 33.5 % Red Cell Distribution Width 14.3 % Platelet Count 209 TH/MM3 Mean Platelet Volume 7.8 FL Neutrophils (%) (Auto) 62.0 % Lymphocytes (%) (Auto) 22.3 % Monocytes (%) (Auto) 14.1 % Eosinophils (%) (Auto) 1.3 % Basophils (%) (Auto) 0.3 % Neutrophils # (Auto) 3.6 TH/MM3 Lymphocytes # (Auto) 1.3 TH/MM3 Monocytes # (Auto) 0.8 TH/MM3 Eosinophils # (Auto) 0.1 TH/MM3 Basophils # (Auto) 0.0 TH/MM3 CBC Comment DIFF FINAL Differential Comment Prothrombin Time 10.3 SEC Prothromb Time International Ratio 1.0 RATIO Activated Partial Thromboplast Time 27.0 SEC Blood Urea Nitrogen 23 MG/DL Creatinine 0.82 MG/DL Random Glucose 91 MG/DL Calcium Level 8.9 MG/DL Magnesium Level 2.1 MG/DL Sodium Level 138 MEQ/L Potassium Level 4.0 MEQ/L Chloride Level 103 MEQ/L Carbon Dioxide Level 29.1 MEQ/L Anion Gap 6 MEQ/L Estimat Glomerular Filtration Rate 95 ML/MIN Total Creatine Kinase 257 U/L Creatine Kinase MB 6.3 NG/ML Troponin I 0.59 NG/ML [facility] Medical Decision Making Medical Screen Exam Complete: Yes Emergency Medical Condition: Yes Medical Record Reviewed: Yes Differential Diagnosis Differential diagnosis includes [place], angina, pericarditis, pleurisy, GERD, anxiety. Narrative Course I have reviewed the patient's electronic medical record. I reviewed his EKG taken at cardiac rehabilitation 1020: Cardiac workup ordered Placed on the monitor IV placed I gave him an aspirin I reviewed his EKG which shows sinus rhythm with first-degree AV block and occasional ectopy Labs ordered I reviewed his labs CBC metabolic profile is normal CK normal Troponin I is elevated 0.59 Recheck the patient reveals he is chest pain-free but has acute non-STEMI given his elevated troponin and suspicious exertional chest pain that resolved with rest I placed a call to his dental receptionist to discuss I reviewed with the hospitalist who has admitted the patient and seen the patient. They will consult the dental receptionist. Critical Care Narrative Aggregate critical care time was 36 minutes. Time to perform other separately billable procedures was not included in the critical care time. My time did not include minutes spent treating any other patients simultaneously or on activities that did not directly contribute to the patient's treatment. The services I provided to this patient were to treat and/or prevent clinically significant deterioration that could result in: Cardiopulmonary arrest, cardiac arrhythmia, myocardial damage I provided critical care services requiring my management, as noted below: Chart data review, documentation time, medication orders and management, vital sign assessments/reviewing monitor data, ordering and reviewing lab tests, ordering and interpreting/reviewing x-rays and diagnostic studies, care of the patient and discussion of the patient with the admitting physicians. Diagnosis Primary Impression: Acute non-ST segment elevation myocardial infarction (STEMI) following previous myocardial infarction Admitting Information Admitting Physician Requests: Rico Meza MD Apr 05, 2017 10:23
--- NOTE | 2017-04-05 10:37 | RADRPT ---
EXAM DATE/TIME: 04/05/2017 10:21 [facility] COMPARISON: CHEST PA & LAT, October 20, 2016, 9:07. CHEST SINGLE AP, December 30, 2015, 16:08. INDICATIONS : Chest pain. MEDICAL HISTORY : Congestive heart failure. Myocardial infarction. SURGICAL HISTORY : Pacemaker. 4 heart stents, defibrillator ENCOUNTER: Initial ACUITY: 1 day PAIN SCORE: 4/10 LOCATION: Bilateral chest FINDINGS: 2 AP views of the chest demonstrate a normal-sized cardiac silhouette. Left chest wall cardiac pacing device remains present. No pleural effusion, airspace consolidation, or pneumothorax is identified. The bones and soft tissues demonstrate no acute finding. Cervical spine hardware is present. CONCLUSION: No acute cardiopulmonary abnormality is identified. Hugh Marroquin MD on April 05, 2017 at 10:35 Board Certified Radiologist. This report was verified electronically.
[2017-04-05 10:48] LABS: AUTOMATED NEUTROPHIL # 3.6 TH/MM3 (1.8-7.7); BASOPHIL % 0.3 % (0.0-2.0); EOSINOPHIL # 0.1 TH/MM3 (0-0.4); EOSINOPHIL % 1.3 % (0.0-4.0); HEMATOCRIT 42.2 % (39.0-51.0); HEMOGLOBIN 14.1 GM/DL (13.0-17.0); LYMPH % 22.3 % (9.0-44.0); LYMPHOCYTE # 1.3 TH/MM3 (1.0-4.8); MEAN CELL VOLUME 90.5 FL (80.0-100.0); MEAN CORPUSCULAR HEMOGLOBIN 30.3 PG (27.0-34.0); MEAN CORPUSCULAR HGB CONC 33.5 % (32.0-36.0); MEAN PLATELET VOLUME 7.8 FL (7.0-11.0); MONO % 14.1 % (0.0-8.0); MONOCYTE # 0.8 TH/MM3 (0-0.9); PLATELET COUNT 209 TH/MM3 (150-450); RED BLOOD COUNT 4.66 MIL/MM3 (4.50-5.90); RED CELL DISTRIBUTION WIDTH 14.3 % (11.6-17.2); WHITE BLOOD COUNT 5.9 TH/MM3 (4.0-11.0)
[2017-04-05 10:58] LABS: PROTHROMBIN TIME - PATIENT 10.3 SEC (9.8-11.6)
[2017-04-05 11:08] LABS: BICARBONATE 29.1 MEQ/L (21.0-32.0); BLOOD UREA NITROGEN 23 MG/DL (7-18); CALCIUM 8.9 MG/DL (8.5-10.1); CHLORIDE 103 MEQ/L (98-107); CREATININE 0.82 MG/DL (0.60-1.30); GLOMERULAR FILTRATION RATE 95 ML/MIN (>89); GLUCOSE,RANDOM 91 MG/DL (74-106); MAGNESIUM 2.1 MG/DL (1.5-2.5); SODIUM (NA) 138 MEQ/L (136-145)
[2017-04-05 11:12] LABS: TROPONIN I 0.59 NG/ML (0.02-0.05)
[2017-04-05] MEDS ORDERED: MAGNESIUM HYDROXIDE SUSP 30 ML CUP PO PRN (14:00)
[2017-04-05] MEDS ORDERED: BISACODYL 10 MG SUPP RECTAL PRN (14:00)
[2017-04-05] MEDS ORDERED: SENNOSIDES 8.6 MG TAB PO PRN (14:00)
[2017-04-05] MEDS ORDERED: ONDANSETRON HCL 4 MG/2 ML VIAL IVP PRN (14:00)
[2017-04-05] MEDS ORDERED: ACETAMINOPHEN 325 MG TAB PO PRN (14:00)
[2017-04-05] MEDS ORDERED: NALOXONE HCL 0.4 MG/ML AMP IV PUSH PRN (14:00)
[2017-04-05] MEDS ORDERED: LACTULOSE SYRUP 20 GM/30 ML CUP PO PRN (14:00)
[2017-04-05] MEDS ORDERED: SODIUM CHLORIDE 0.9% FLUSH 10 ML FLUSH IV FLUSH PRN (14:00)
[2017-04-05] MEDS ORDERED: NITROGLYCERIN 0.4 MG SL 25 TABS/BTL SL PRN (14:15)
[2017-04-05] MEDS ORDERED: MORPHINE SULFATE 2 MG/ML INJ IV PUSH PRN (14:15)
[2017-04-05] MEDS ORDERED: ENOXAPARIN SODIUM 40 MG/0.4 ML SYRINGE SQ SCH (16:00)
--- NOTE | 2017-04-05 16:37 | HHI.HP ---
[facility] Service [facility] Primary Care Physician Darian Harrell MD Admission Diagnosis acute NSTEMI Diagnoses: Chief Complaint: Chest pain Travel History International Travel<30 Days: No Contact w/Intl Traveler <30 Da: No Traveled to Known Affected Are: No History of Present Illness The patient is a very pleasant 66-year-old male with past medical history of coronary artery disease with 4 stents in 2006, hypertension, hyperlipidemia, legally blind. Patient follows with Dr. Garcia cardiology as outpatient. He presented to the emergency room with complaints of chest pain that started while he was having cardiac physical therapy. Says he experience chest pain nonradiating, pressure-like, intermittent, associated with nausea, diaphoresis and cold clammy extremities. Says symptoms are similar when he had previous myocardial infarction. The patient denies palpitations, shortness of breath. No catheterization in the last 10 years but he reports having a stress test some are around 4-6 months ago. Symptoms severity was moderate. When he got off the bicycle his chest symptoms went away. He is currently pain-free. Duration 3 minutes. Symptoms are alleviated by rest and exacerbated by exertion. He is compliant with medications and doctors appointments. Has no fever or chills no cough. Receive aspirin in the emergency room. Troponin noted elevated. Patient denies any chest pain at this time. Review of Systems Except as stated in HPI: all other systems reviewed are Neg Past Family Social History Past Medical History Coronary artery disease with 4 stents placements in 2006 Hypertension, Hyperlipidemia Legally blind Past Surgical History Back surgery, last back surgery was November Neck surgery with plates and screws in cervical spine. Cervical fusion 2000 Cataract surgery Bilateral cataract with lens implant in 1987 and repair in 1998 TX in 2006 with 4 stents and AICD Appendectomy 12/26/05 Reported Medications Reported Meds & Active Scripts Active Lidoderm (Lidocaine) 5 % Adh..patch 1 Patch TD DAILY Apply 1 patch daily to right low back and right lateral hip as needed for pain control Oxycodone-Acetaminophen 10-325 mg Tab 1 Tab PO Q6H PRN Reported [unknown heartburn] Zantac (Ranitidine HCl) 150 Mg Tab 150 Mg PO DAILY Celecoxib 200 Mg Cap 200 Mg PO BID Aspirin 81 Mg Chew 162 Mg CHEW DAILY Escitalopram (Escitalopram Oxalate) 20 Mg Tab 20 Mg PO HS Vitamin A 8,000 Unit Capsule 1 Cap PO BID Saw [place] ([place]) 450 Mg Cap 1 Cap PO DAILY Androgel Pump Topical (Testosterone) 1.62 % Gel 121.5 Mg TOPICAL DAILY Spironolactone 25 Mg Tab 25 Mg PO DAILY Joshua 128 Opth Drops (Sodium Chloride Opth Drops) 5% Soln 1 Drop EACH EYE BID Ramipril 5 Mg Cap 5 Mg PO DAILY @ 1400 Nitroglycerin SL (Nitroglycerin) 0.4 Mg Subl 0.4 Mg SL DIRECTED PRN ONE TABLET UNDER THE TONGUE NEEDED FOR CHEST PAIN, MAY REPEAT EVERY FIVE MINUTES FOR A TOTAL OF 3 DOSES OR CALL 911 IF NO RELIEF Toprol XL (Metoprolol Succinate) 100 Mg Tab 100 Mg PO DAILY Latanoprost Opth Drops (Latanoprost) 0.005% Drops 1 Drop EACH EYE HS Refrigerate until opened. Isosorbide Mononitrate ER (Isosorbide Mononitrate) 30 Mg Gibson 30 Mg PO DAILY Ipratropium Nasal 0.03% [place] 1 [place] EACH NARE TID Digoxin 0.25 Mg Tab 0.125 Mg PO HS Atorvastatin (Atorvastatin Calcium) 80 Mg Tab 80 Mg PO HS Allergies: Coded Allergies: No Known Allergies (Verified Adverse Reaction, Unknown, 04/05/17) Family History Father had TX at the age of 39, paternal uncle TX at the age of 36, both grand father with TX Social History Quit smoking 1982 Denies alcohol use or illicit drug use Physical Exam Vital Signs Vital Signs Date Time Temp Pulse Resp B/P (MAP) Pulse Ox O2 Delivery O2 Flow Rate FiO2 04/05/17 15:45 62 15 130/79 (96) 98 Room Air 04/05/17 12:12 69 12 113/69 (84) 96 Room Air 04/05/17 10:00 98.9 63 16 135/80 (98) 98 Room Air Physical Exam GENERAL: This is a very pleasant 66-year-old male, well-nourished, well- developed patient, in no apparent distress. SKIN: No rashes, ecchymoses or lesions. Cool and dry. HEAD: Atraumatic. Normocephalic. No temporal or scalp tenderness. EYES: Pupils equal round and reactive. Extraocular motions intact. No scleral icterus. No injection or drainage. ENT: Nose without bleeding, purulent drainage or septal hematoma. Throat without erythema, tonsillar hypertrophy or exudate. Uvula midline. Airway patent. NECK: Trachea midline. No JVD or lymphadenopathy. Supple, nontender, no meningeal signs. CARDIOVASCULAR: Regular rate and rhythm without murmurs, gallops, or rubs. RESPIRATORY: Clear to auscultation. Breath sounds equal bilaterally. No wheezes , rales, or rhonchi. GASTROINTESTINAL: Abdomen soft, non-tender, nondistended. No hepato-splenomegaly , or palpable masses. No guarding. MUSCULOSKELETAL: Extremities without clubbing, cyanosis, or edema. No joint tenderness, effusion, or edema noted. No calf tenderness. Negative Homans sign bilaterally. NEUROLOGICAL: Awake and alert. Cranial nerves II through XII intact. Motor and sensory grossly within normal limits. Five out of 5 muscle strength in all muscle groups. Normal speech. Laboratory Laboratory Tests Test 04/05/17 09:57 04/05/17 14:30 White Blood Count 5.9 Red Blood Count 4.66 Hemoglobin 14.1 Hematocrit 42.2 Mean Corpuscular Volume 90.5 Mean Corpuscular Hemoglobin 30.3 Mean Corpuscular Hemoglobin Concent 33.5 Red Cell Distribution Width 14.3 Platelet Count 209 Mean Platelet Volume 7.8 Neutrophils (%) (Auto) 62.0 Lymphocytes (%) (Auto) 22.3 Monocytes (%) (Auto) 14.1 Eosinophils (%) (Auto) 1.3 Basophils (%) (Auto) 0.3 Neutrophils # (Auto) 3.6 Lymphocytes # (Auto) 1.3 Monocytes # (Auto) 0.8 Eosinophils # (Auto) 0.1 Basophils # (Auto) 0.0 CBC Comment DIFF FINAL Differential Comment Prothrombin Time 10.3 Prothromb Time International Ratio 1.0 Activated Partial Thromboplast Time 27.0 Blood Urea Nitrogen 23 Creatinine 0.82 Random Glucose 91 Calcium Level 8.9 Magnesium Level 2.1 Sodium Level 138 Potassium Level 4.0 Chloride Level 103 Carbon Dioxide Level 29.1 Anion Gap 6 Estimat Glomerular Filtration Rate 95 Total Creatine Kinase 257 Creatine Kinase MB 6.3 Troponin I 0.59 0.71 Result Diagram: 04/05/17 0957 04/05/17 0957 Imaging Last Impressions Chest X-Ray 04/05/17 1012 Signed Impressions: Service Date/Time: Wednesday, April 05, 2017 10:21 - CONCLUSION: No acute cardiopulmonary abnormality is identified. MD Ayah [place] VTE Risk Assessment Ayah VTE Risk Assessment: Mod/High Risk (score >= 2) Caprini Risk Assessment Model Point Value = 1 Point Value = 2 Point Value = 3 Point Value = 5 Age 41-60 Minor surgery BMI > 25 kg/m2 Swollen legs Varicose veins or History of unexplained or recurrent spontaneous Oral contraceptives or hormone replacement Sepsis (< 1 month) Serious lung disease, including pneumonia (< 1 month) Abnormal pulmonary function Acute myocardial infarction Congestive heart failure (< 1 month) History of inflammatory bowel disease Medical patient at bed rest Age 61-74 Arthroscopic surgery Major open surgery (> 45 min) Laparoscopic surgery (> 45 min) Malignancy Confined to bed (> 72 hours) Immobilizing plaster cast Central venous access Age >= 75 History of VTE Family history of VTE Factor V Leiden Prothrombin [id number] Lupus anticoagulant Anticardiolipin antibodies Elevated serum homocysteine Heparin-induced thrombocytopenia Other congenital or acquired thrombophilia Stroke (< 1 month) Elective arthroplasty Hip, pelvis, or leg fracture Acute spinal cord injury (< 1 month) Prophylaxis Regimen Total Risk Factor Score Risk Level Prophylaxis Regimen 0-1 Low Early ambulation 2 Moderate Order ONE of the following: *Sequential Compression Device (SCD) *Heparin 5000 units SQ BID 3-4 Higher Order ONE of the following medications: *Heparin 5000 units SQ TID *Enoxaparin/Lovenox 40 mg SQ daily (WT < 150 kg, CrCl > 30 mL/min) *Enoxaparin/Lovenox 30 mg SQ daily (WT < 150 kg, CrCl > 10-29 mL/min) *Enoxaparin/Lovenox 30 mg SQ BID (WT < 150 kg, CrCl > 30 mL/min) AND/OR *Sequential Compression Device (SCD) 5 or more Highest Order ONE of the following medications: *Heparin 5000 units SQ TID (Preferred with Epidurals) *Enoxaparin/Lovenox 40 mg SQ daily (WT < 150 kg, CrCl > 30 mL/min) *Enoxaparin/Lovenox 30 mg SQ daily (WT < 150 kg, CrCl > 10-29 mL/min) *Enoxaparin/Lovenox 30 mg SQ BID (WT < 150 kg, CrCl > 30 mL/min) AND *Sequential Compression Device (SCD) Assessment and Plan Problem List: (1) Acute non-ST segment elevation myocardial infarction (STEMI) following previous myocardial infarction ICD Code: I22.9 - Subsequent ST elevation (STEMI) myocardial infarction of unspecified site Status: Acute Assessment and Plan Acute NSTEMI following previous myocardial infarction Coronary artery disease with 4 stents placed 2006 Hypertension Hyperlipidemia Legally blind Elevated troponin 0.5 --> 0.71 . Troponins are trending up check third troponin EKG reviewed and findings discussed with ER physician and his cardiology Dr. EKG shows sinus rhythm with first-degree AV block and occasional ectopy We will repeat EKG Receive aspirin 325 mg in the emergency room Continue aspirin Ordered Nitropaste. Morphine IV for severe chest pain Discussed with his cardiology Dr. Mitchell, give Lovenox Monitor on telemetry Started on Aggrenox by cardiology, plan for cardiac catheterization tomorrow Resume home medications as appropriate DVT prophylaxis SCD/teds and Lovenox Discussed Condition With Discussed with the patient, nurse, family at bedside, ED physician, patient's cardiology Physician Certification 2 Midnight Certification Type: Admission for Inpatient Services Order for Inpatient Services The services are ordered in accordance with Medicare regulations or non- Medicare payer requirements, as applicable. In the case of services not specified as inpatient-only, they are appropriately provided as inpatient services in accordance with the 2-midnight benchmark. Estimated LOS (days): 3 days is the estimated time the patient will need to remain in the hospital, assuming treatment plan goals are met and no additional complications. Post-Hospital Plan: Home Jolie Azevedo MD Apr 05, 2017 16:37
[2017-04-05] MEDS ORDERED: ENOXAPARIN SODIUM 60 MG/0.6 ML SYRINGE SQ ONE (18:00)
[2017-04-05] MEDS ORDERED: IPRATROPIUM 0.03% NASAL SCH (18:00)
[2017-04-05 18:41] LABS: CHOLESTEROL/ HDL RATIO 3.09 RATIO; HDL CHOLESTEROL 56.3 MG/DL (40.0-60.0); TROPONIN I 0.58 NG/ML (0.02-0.05)
[2017-04-05] MEDS: NITROGLYCERIN 2% OINT 1 GM PACKET TOPICAL SCH ×2 (19:38→23:27)
[2017-04-05] MEDS ORDERED: TIROFIBAN IV SCH ×2 (20:15→21:00)
[2017-04-05] MEDS ORDERED: TIROFIBAN IV ONE (20:15)
--- NOTE | 2017-04-05 20:52 | MB ---
cc: Alfredo Lott MD DATE OF CONSULT: 04/05/2017 REASON FOR CONSULTATION: Non-ST elevated myocardial infarction. HISTORY OF PRESENT ILLNESS: Mr. Kaufman is a pleasant 66-year-old gentleman known to me with history of anterior wall myocardial infarction status post LAD stenting and RCA stenting. He has ischemic cardiomyopathy and status post ICD placement in the past. He goes to cardiac rehab and today he was there and started feeling chest heaviness with shortness of breath and decided to come to the emergency room where they annette troponin on him and it was mildly elevated. He ate dinner after he was admitted and had some slight chest heaviness, but it was self-limited and dissipated. He is currently pain free. Denies palpitations, dizziness or syncope. Denies orthopnea, PND, or leg swelling. Denies claudication. ALLERGIES: NO KNOWN DRUG ALLERGIES. FAMILY HISTORY: Positive for coronary disease and hypertension and cancer. SOCIAL HISTORY: He used to smoke and he has an [id number] history of smoking, he stopped in 1981. Denies ETOH abuse or recreational drug abuse. He is and lives with his . MEDICATIONS: At home include the followin. Altace 5 mg p.o. daily. 2. Aspirin 81 mg p.o. daily. 3. Atorvastatin 80 mg p.o. daily at bedtime. 4. Digoxin 0.125 mg p.o. daily. 5. Escitalopram 20 mg p.o. daily. 6. Hydrocodone/acetaminophen 10/325 one tablet q. 8 hours p.r.n. with pain. 7. Nasal spray ipratropium. 8. Imdur 30 mg p.o. daily. 9. Metoprolol succinate 100 mg p.o. daily. 10. Eye drops. 11. Saw palmetto 1 capsule daily. 12. Spironolactone 25 mg p.o. daily. REVIEW OF SYSTEMS: Twelve-point system review was unremarkable except for what is mentioned of the history of present illness. PAST MEDICAL AND SURGICAL HISTORY: As mentioned above. 1. Legally blind. 2. Hypertension. 3. Hyperlipidemia. 4. Osteoarthritis. 5. GE reflux disease. 6. Obstructive sleep apnea, noncompliant with his CPAP. 7. Ischemic cardiomyopathy. 8. Status post cataract surgery, 1988. 9. Back surgery, 1995. 10. Neck surgery in 2004. 11. ICD, 2006, generator change 2013. 12. Fusion of his tailbone 11/2016. PHYSICAL EXAMINATION: GENERAL: A 66-year-old gentleman lying in bed, in no acute distress, alert, oriented x3, answers questions appropriately. VITAL SIGNS: Shows a blood pressure 148/90 mmHg, pulse of 73 bpm, respiration 14 per minute, afebrile. HEENT: Shows head is normocephalic. Pupils are equal and reactive. Throat is within normal limits. NECK: Supple. No carotid bruit, no thyromegaly, no jugular venous distention noted. LUNGS: Clear to auscultation and percussion. CARDIOVASCULAR: S1, S2 are normal with a faint S4 gallop, distant heartbeats. No rubs or murmurs. ABDOMEN: Somewhat obese, but lax and nontender. Normoactive bowel sounds. No organomegaly or masses felt. EXTREMITIES: No clubbing, cyanosis, or edema. Pulses 2+ bilaterally and no bruit noted. NEUROLOGIC: Grossly intact with no focal deficits. He is legally blind. LABORATORIES: Shows a white count 5.9, hemoglobin 14.1, and a platelet count of 209. Initial troponin is 0.59, went up to 0.71 and down to 0.58. Sodium 138, potassium 4.0, BUN of 23, creatinine is 0.82. Lipid panel showed an LDL of 102, HDL of 56 and triglycerides of 174. Coags were within normal limits. EKG shows sinus rhythm, old anterior infarction, nonspecific lateral ST-T wave changes and occasional PVCs. ASSESSMENT AND RECOMMENDATION: 1. Coronary artery disease, status post left anterior descending stenting and right coronary artery stenting in the past and now presenting with unstable angina/acute coronary syndrome pattern, currently pain free. We will start him on Aggrastat. He will receive Effient as a loading dose and we will proceed with a cardiac catheterization superintendent division or tonight if he becomes again unstable. The risks and benefits of the catheterization was fully explained. The risks explained include, but not limited to bleeding, infection, CVA, MS, , arterial dissection perforation, emergency vascular surgery or CABG surgery, arrhythmia, renal failure, loss of limb, etc. were all fully explained and benefits were explained and he is agreeable and wants to proceed. In the meantime, continue nitroglycerin paste, aspirin, and switch his Lipitor to Crestor 40 mg daily at bedtime, and further recommendations will follow. 2. Ischemic cardiomyopathy, stable. No signs of CHF. Continue home medications. 3. Hyperlipidemia: Switch to Crestor as mentioned above. Further recommendations will follow. MD REBECCA Swenson/cc , 08:16 PM , 08:50 PM
[2017-04-05] MEDS: SODIUM CHLORIDE 0.9% FLUSH 10 ML FLUSH IV FLUSH SCH (21:00)
[2017-04-05] MEDS ORDERED: ATORVASTATIN 80 MG TAB PO SCH (21:00)
[2017-04-05] MEDS ORDERED: PRASUGREL 10 MG TAB PO SCH (21:00)
[2017-04-05] MEDS ORDERED: TEMAZEPAM 15 MG CAP PO PRN (21:00)
[2017-04-05] MEDS: SODIUM CHLORIDE 5% OPHT SOLN 15 ML BTL EACH EYE SCH (21:03)
[2017-04-05] MEDS: CELECOXIB 200 MG CAP PO SCH (21:04)
[2017-04-05] MEDS: DIGOXIN 0.125 MG TAB PO SCH (21:04)
[2017-04-05] MEDS: DOCUSATE SODIUM 50 MG/SENNA 8.6 MG TAB PO SCH (21:04)
[2017-04-05] MEDS: ESCITALOPRAM OXALATE 20 MG TAB PO SCH (21:05)
[2017-04-05] MEDS: oxyCODONE/ACETAMINOPHEN 10 MG/325 MG TAB PO PRN ×2 (23:35→23:38)
[2017-04-06] VITALS (27 sets, daily range): BP systolic 131–160; BP diastolic 76–97; PULSE 52–100; RESP 20–22; TEMP 97.2–99; O2SAT 98–100
[2017-04-06 00:51] LABS: AUTOMATED NEUTROPHIL # 3.3 TH/MM3 (1.8-7.7); BASOPHIL % 0.3 % (0.0-2.0); EOSINOPHIL # 0.2 TH/MM3 (0-0.4); EOSINOPHIL % 2.4 % (0.0-4.0); HEMATOCRIT 39.1 % (39.0-51.0); HEMOGLOBIN 13.2 GM/DL (13.0-17.0); LYMPH % 31.9 % (9.0-44.0); LYMPHOCYTE # 2.1 TH/MM3 (1.0-4.8); MEAN CELL VOLUME 89.6 FL (80.0-100.0); MEAN CORPUSCULAR HEMOGLOBIN 30.3 PG (27.0-34.0); MEAN CORPUSCULAR HGB CONC 33.8 % (32.0-36.0); MEAN PLATELET VOLUME 7.8 FL (7.0-11.0); MONO % 13.5 % (0.0-8.0); MONOCYTE # 0.9 TH/MM3 (0-0.9); NEUT % 51.9 % (16.0-70.0); PLATELET COUNT 211 TH/MM3 (150-450); RED BLOOD COUNT 4.37 MIL/MM3 (4.50-5.90); RED CELL DISTRIBUTION WIDTH 14.2 % (11.6-17.2); WHITE BLOOD COUNT 6.4 TH/MM3 (4.0-11.0)
[2017-04-06] MEDS ORDERED: HEPARIN SODIUM - SQ 10,000 UNITS/ML VIAL SQ SCH (05:00)
[2017-04-06] MEDS: NITROGLYCERIN 2% OINT 1 GM PACKET TOPICAL SCH (05:15)
[2017-04-06] MEDS ORDERED: HEPARIN SODIUM - IV 10,000 UNITS/10 ML VIAL ONE (07:07)
[2017-04-06] MEDS ORDERED: MIDAZOLAM HCL 2 MG/2 ML VIAL ONE (07:07)
[2017-04-06] MEDS ORDERED: diphenhydrAMINE HCL 50 MG/ML VIAL ONE (07:13)
[2017-04-06] MEDS ORDERED: PROTAMINE SULFATE 50 MG/5 ML VIAL ONE (08:09)
--- NOTE | 2017-04-06 08:41 | CATHPROC ---
[facility] HIS Report Study Information Study Number Admission Scheduled Start Study Start [id number] Apr 05 2017 2:29PM 04/06/2017 Apr 06 2017 7:01AM [facility] Cardiac Catheterization Admit Source Facility Department Emergency department [facility] [place] - Community Recreation Coordinator Physician and Clinical Staff Initial Alfredo Figueroa Order Processor Jenny Seaman,YAS Recorder Eileen Monroy,RT(R) [place] RCIS(BS) Procedures Performed Procedure Location (Site) Vessel Name Angiogram LV LV Ventricle Coronary Angiograms LCA Left Coronary Coronary Angiograms RCA Right Coronary L Heart Cath Equipment Time Crop Scout Description Size Mfg Part Number Used/Scraped STARCLOSE, VASCULAR CLOSER [id number] 08:02 [employer] FR 6 Used SYSTEM *[id number] TRANSDUCER, TRUWAVE [id number] 07:03 BROWNE LAWSON * Used W/STOCKCOCK *[id number] 534-618T *[id number] 534-620T *[id number] 534-617T *[id number] 534-621T *[id number] PIGTAIL ANG. 145 INFINITI 534-652S CATHETER *[id number] 07:03 [employer] INDUSTRIES PACK, CCL CUSTOM * Used *[id number] 07:03 [employer] PACER PEN, SKIN DUAL W/ RULER * Used *[id number] 07:03 [employer] Software MEDICAL SHEATH, FR6.5 PRELUDE 11CM FR 6.5 038ACT Used *[id number] 07:03 [employer] MEDICAL WIRE, 3MMJ .035 180CM 180CM Used *[id number] 07:03 NAMIC MANIFOLD, 4 PORT * Used *[id number] 07:03 NYCOMED OMNIPAQUE, 350 MG, 150ML 150ML [id number] Used 07:59 NYCOMED OMNIPAQUE, 350 MG, 50ML 50ML [id number] Used [id number] 07:03 [facility]IR [facility] BLANKET,WARM AIR CCL * Used *[id number] History: Current Medications Medication Dosage/Unit Route Frequency Last Date/Time Taken Toprol LOVENOX ASA EFFIENT LIPITOR Imdur History: Allergies Allergy Reaction No Known Allergies History: Risk Factors Family History of Hypertension Dyslipidemia Previous NV Previous Heart Failure Premature CAD Yes Yes Yes Yes No Prior Valve Prior PCI Prior PCIDate Prior CABG Surgery No Yes 02/06/2006 No Cerebrovascular Peripheral Artery Chronic Lung On Dialysis Diabetes Disease Disease Disease No No No No No History: Symptoms/Diagnosis Selection Items Chest pain History: Stress Tests Stress or Imaging Studies Performed No History: Other Disease Selection Items CAD HTN History: Other Current Smoker Method Quit Packs a Day Years Used Pack Years No Cigarettes 35 Years Ago 1 11 11 Labs Hgb (g/dl) Hct (%) WBC (l/cumm) Platelets (thousands) 11.60-17.00 35.00-51.00 4.00-11.00 150.00-450.00 13.2 39.1 6.4 211 Glucose (mg/dl) BUN (mg/dl) Creatinine (mg/dl) BUN:Creatinine (1:x) 74.00-106.00 7.00-18.00 0.50-1.30 10.00-20.00 91 23 0.8 28.8 Na (meq/l) K (meq/l) 136.00-145.00 3.50-5.10 138 4 INR (PTT:PT) 0.90-1.10 1 Troponin I (ng/ml) CPK (u/l) CPK-MB (ng/ML) 0.02-0.05 26.00-308.00 0.50-3.60 0.58 257 6.3 Medication Medication Total Dose (Bolus/Oral) Medication Total Dosage/Unit 1% XYLOCAINE 20 mL FENTANYL 50 mcg PROTAMINE 20 mg VERSED 2 mg Medications (Bolus/Oral) Medication Time Given Dosage/Unit Administered By Reason 1% XYLOCAINE 04/06/2017 7:32:21 AM 20 mL Alfredo Lott 20 mL 1% XYLOCAINE given in lab by Alfredo Lott in Right Groin via Subcutaneous. VERSED 04/06/2017 7:32:43 AM 2 mg Jenny Seaman 2 mg VERSED given in lab by Jenny Seaman RN in Right Forearm via Peripheral IV. Ordered by Alfredo Lott. FENTANYL 04/06/2017 7:33:50 AM 50 mcg Jenny Seaman 50 mcg FENTANYL given in lab by Jenny Seaman, YAS in Right Forearm via Peripheral IV. Ordered by Alfredo Hernandez. PROTAMINE 04/06/2017 8:10:39 AM 20 mg Jenny Seaman 20 mg PROTAMINE given in lab by Jenny Seaman RN in Right Forearm via Peripheral IV. Ordered by Alfredo Hernandez. Medication (Drip) Medication Time Given Dosage/Unit Concentration/Unit Diluent (ml) Solution IV Solutions 04/06/2017 7:05:06 AM 50 mL (IV) NaCl .9 IV Solutions given in lab by Jenny Seaman RN in Right Forearm via Peripheral IV. Pump/Drip Flow u sing NaCl .9. Initial Case Assessment Cardiovascular HR Rhythm NIBP Chest Pain 71 SR 157/82 0 Skin color Skin Normal Warm Dry Circulatory - Right Pulses Dorsalis Pedis Femoral 1 2 Scale (0,1,2,3,4,d) Circulatory - Left Pulses Dorsalis Pedis Femoral 1 2 Scale (0,1,2,3,4,d) Neurological State Oriented to time-place- Alert Moves all extremities person Respiration - General Respiration Rate SpO2 (%) (B/min) 12 99 Chronological Log Time Study Chronological Log 7:00:46 Patient arrived via Bed. 7:04:47 Patient Name, D.O.B, / Armband Verified By R.N. 7:04:48 Consent signed by the physician and the patient and verified by the Community Recreation Coordinator staff. 7:04:49 Pre-op and post- op instructions given; patient acknowledges understanding of instructions. 7:04:49 Verbal Stimulation=2 Physical Stimulation=2 Airway=2 Respiration=2 TOTAL=8. (0=absent, 1=sheldon ited, 2=present) 7:04:52 Presedation assessment performed by Community Recreation Coordinator RN. 7:04:56 Patient has been NPO for More than 6Hrs. 7:04:57 Skin Breakdown- none per pt 7:05:01 Patient Warmer Placed on the Table. 7:05:03 Indra Prominences Protected 7:05:05 A # 20 IV was noted in the Forearm (right). Grade = 0 7:05:06 IV Solutions given in lab by Jenny Seaman RN in Right Forearm via Peripheral IV. Pump/Dr ip Flow using NaCl .9. 7:05:07 History and physical on the chart or being dictated. Assessment: Initial Case, HR=71 BPM, Rhythm=SR, RKQH=020/82 mmhg, Chest Pain=0, Color=Normal, Sk in = Warm, Dry Right Pulses: Theron Ped=1, Femoral=2 7:05:08 Left Pulses: Theron Ped=1, Femoral=2 Neurological: State=Alert, Ox3, GOMEZ Respiration: Resp=12 B/min, SpO2=99 % 7:14:19 Reference ECG taken Vitals capture started with the following parameters, Patient=Adult, Interval=5 min, Initial Pre nzpwd=789 mmHg, 7:14:23 Deflation Rate=5 mmHg, Cuff placed on Left Arm 7:14:51 Bilateral groins prepped with 2% chlorhexidine, and draped after a 3 minute waiting time. 7:15:03 HR=80 bpm, ZXDR=725/82 mmhg, SpO2=99.0 %, Resp=12 B/min 7:19:10 MD paged 7:19:10 MD responded 7:19:36 Pressure channel 1 zeroed. 7:20:04 HR=71 bpm, MMQQ=766/86 mmhg, SpO2=99.0 %, Resp=12 B/min 7:23:27 MD arrived. 7:24:59 HR=73 bpm, UUXD=441/97 mmhg, SpO2=98.0 %, Resp=10 B/min 7:30:35 HR=71 bpm, QDHA=086/87 mmhg, QeK6=023.0 %, Resp=12 B/min, Pain=0, Ivana=10, Heath=2 Time Out. Correct patient, correct procedure, correct physician, power injector loaded with cont rast with surgical team 7:30:54 present. Time Out Concurred by MD and individual staff in procedure. 7:32:09 Case Start 7:32:21 20 mL 1% XYLOCAINE given in lab by Alfredo Lott in Right Groin via Subcutaneous. 7:32:43 2 mg VERSED given in lab by Jenny Seaman, RN in Right Forearm via Peripheral IV. Ordered by Alfredo Lott. 7:33:50 50 mcg FENTANYL given in lab by Jenny Seaman, RN in Right Forearm via Peripheral IV. Orde red by Alfredo Lott. 7:35:01 HR=66 bpm, MOCL=149/88 mmhg, WcX7=755.0 %, Resp=17 B/min, Pain=0, Ivana=10, Heath=2 7:35:09 Access site was Right Femoral Artery. 7:35:16 A SHEATH, FR6.5 PRELUDE 11CM FR 6.5 was advanced into the Fem Art (right) using the Percutan eous technique. A JL 4.0 INFINITI CATHETER FR 6 was advanced over a wire. OMNIPAQUE, 350 MG, 150ML 150ML was use d for 7:36:32 injections. Recorded Pressure: Ao, HR=63, Condition=Condition 1 7:38:00 (Aorta) Ao 137/76/101 7:40:00 HR=67 bpm, WWNM=618/90 mmhg, SpO2=95.0 %, Resp=12 B/min, Pain=0, Ivana=10, Heath=2 7:40:33 Catheter was removed A JL 3.5 INFINITI CATHETER FR 6 was advanced over a wire. OMNIPAQUE, 350 MG, 150ML 150ML was use d for 7:40:34 injections. 7:43:19 Catheter was removed A JL 4.5 INFINITI CATHETER FR 6 was advanced over a wire. OMNIPAQUE, 350 MG, 150ML 150ML was use d for 7:43:36 injections. 7:44:59 HR=67 bpm, UHGQ=103/93 mmhg, SpO2=95.0 %, Resp=19 B/min, Pain=0, Ivana=10, Heath=2 7:46:40 The LCA was injected and visualized at various angles. OMNIPAQUE, 350 MG, 150ML 150ML used. 7:49:52 Catheter was removed 7:50:00 HR=63 bpm, BKBL=916/78 mmhg, SpO2=95.0 %, Resp=12 B/min A JR 4.0 INFINITI CATHETER FR 6 was advanced over a wire. OMNIPAQUE, 350 MG, 150ML 150ML was use d for 7:50:45 injections. 7:53:11 The RCA was injected and visualized at various angles. OMNIPAQUE, 350 MG, 150ML 150ML used. 7:54:46 Catheter was removed 7:54:59 HR=62 bpm, PIBV=854/81 mmhg, SpO2=95.0 %, Resp=13 B/min A PIGTAIL ANG. 145 INFINITI CATHETER FR 6 was advanced over a wire. OMNIPAQUE, 350 MG, 150ML 150 ML was 7:56:20 used for injections. Recorded Pressure: LV, HR=60, Condition=Condition 1 7:57:23 (Left Ventricle) LV 139/4/17 7:58:54 The LV was injected at 12 cc/sec for a total of 36. OMNIPAQUE, 350 MG, 50ML 50ML used. Recorded Pressure: LV, Ao, HR=67, Condition=Condition 1 7:59:31 (Left Ventricle) LV 138/7/18, (Aorta) Ao 141/76/103 8:00:02 HR=67 bpm, CPOL=512/84 mmhg, SpO2=99 %, Resp=13 B/min 8:01:24 An injection in the Fem Art (right) was made through the SHEATH, FR6.5 PRELUDE 11CM FR 6.5. 8:02:27 STARCLOSE, VASCULAR CLOSER SYSTEM FR 6 placement in the Fem Art (right) 8:04:59 HR=64 bpm, PYWK=503/90 mmhg, SpO2=98 %, Resp=9 B/min 8:05:09 Case End 8:10:00 HR=72 bpm, GJSA=803/91 mmhg, SpO2=97.0 %, Resp=17 B/min 8:10:39 20 mg PROTAMINE given in lab by Jenny Seaman RN in Right Forearm via Peripheral IV. Orde red by Alfredo Lott. 8:12:33 Sterile dressing applied to site 8:12:34 No case complications noted. 8:12:35 Cine recording checked. 8:12:36 Bedside Report will be given. 8:12:38 Implantable Device card placed in patient's chart. 8:12:49 A Left Heart Cath was performed. 8:14:59 HR=68 bpm, KXIO=686/88 mmhg, SpO2=99.0 %, Resp=23 B/min 8:20:00 HR=74 bpm, ZNLY=699/93 mmhg, TgZ2=451 %, Resp=15 B/min 8:24:59 HR=69 bpm, FOWG=741/91 mmhg, SpO2=98.0 %, Resp=14 B/min 8:28:20 Vitals capture stopped. 8:30:00 Patient moved to stretcher 8:39:40 Fem stop applied per MD End Study - Contrast Media Used In Study Contrast Total Opened (mL) Total Used (mL) Total Wasted (mL) Omnipaque 100 100 0 End Study - Maximum Contrast Load Max Contrast Load (mL) 593.8 End Study - Radiation Exposure Fluoro Time (minutes) 6.4 End Study - Patient Disposition Complications Transferred To Interventional Outcome No Telemetry Bed No attempt made
[2017-04-06] MEDS: DOCUSATE SODIUM 50 MG/SENNA 8.6 MG TAB PO SCH ×2 (09:00→21:03)
[2017-04-06] MEDS ORDERED: PRASUGREL 10 MG TAB PO SCH (09:00)
[2017-04-06] MEDS ORDERED: TESTOSTERONE TOPICAL SCH (09:00)
[2017-04-06] MEDS ORDERED: ASPIRIN 81 MG CHEW TAB CHEW SCH (09:00)
[2017-04-06] MEDS: FAMOTIDINE 20 MG TAB PO SCH ×2 (09:00→21:03)
[2017-04-06] MEDS ORDERED: SPIRONOLACTONE 25 MG TAB PO SCH (09:00)
[2017-04-06] MEDS: CELECOXIB 200 MG CAP PO SCH ×2 (09:00→21:03)
[2017-04-06] MEDS: LIDOCAINE HCL 5% PATCH T-DERMAL SCH (09:00)
[2017-04-06] MEDS ORDERED: ISOSORBIDE MONONITRATE 30 MG CR TAB (IMDUR) PO SCH (09:00)
[2017-04-06] MEDS ORDERED: RAMIPRIL 5 MG CAP PO SCH (09:00)
[2017-04-06] MEDS: SODIUM CHLORIDE 0.9% FLUSH 10 ML FLUSH IV FLUSH SCH ×2 (09:00→21:00)
[2017-04-06] MEDS: SODIUM CHLORIDE 5% OPHT SOLN 15 ML BTL EACH EYE SCH ×2 (09:00→21:04)
[2017-04-06] MEDS: METOPROLOL SUCCINATE 50 MG EXTENDED RELEASE TAB PO SCH (09:00)
[2017-04-06] MEDS ORDERED: ATROPINE SULFATE 1 MG/10 ML SYRINGE ONE (09:40)
[2017-04-06] MEDS: CLOPIDOGREL 75 MG TAB PO SCH (10:00)
--- NOTE | 2017-04-06 10:33 | MA ---
cc: Alfredo Lott MD, Ryan R MD 04/06/2017 PROCEDURE PERFORMED: 1. Left heart catheterization. 2. Coronary arteriogram. 3. Left ventriculogram. 4. Right femoral arteriogram. 5. Right femoral arteriotomy site closure using a StarClose device. REGIONAL SALES DIRECTOR: Alfredo Lott MD EQUIPMENT USED: A 6-Irish short sheath; 0.035 J-guidewire. 6-Irish JR-4, JL-4 pigtail diagnostic catheters. A 6-Irish 3.5 and then a 4.5 to cannulate the left main because of a big aortic arch. INDICATIONS: Presentation with non-ST elevation myocardial infarction. PROCEDURE: After obtaining informed consent the right groin was prepped in the usual sterile fashion; 15 mL of 1% lidocaine were used for local anesthesia. Using modified Seldinger technique, the right femoral artery was cannulated and a 6-Irish short sheath was inserted in the right femoral artery. Multiple catheters were used to cannulate the left main and eventually a 4.5 was used to cannulate because of a big aortic arch. Selective coronary arteriograms were performed, this was followed by left ventriculogram performed in RA view at 30-degree angle. At the end of the procedure the right femoral system was injected, there being no significant disease and the StarClose device was applied. We had some oozing after applying the StarClose and requiring more manual compression for hemostasis. The patient tolerated the procedure well without complication at the time of dictation. CARDIAC CATHETERIZATION FINDINGS: HEMODYNAMICS: Aortic pressure is 140/70 mmHg. Mean aortic pressure was 93 mmHg. There was no gradient across the aortic valve. Left ventricular end diastolic pressure was 18 mmHg. Left main artery was from left sinus of Valsalva, was very short and had minimal irregularities of less than 30%. Left circumflex artery branch from the left main artery had a diffuse long proximal/ostial 60% disease and it appeared calcified at the ostium. The midvessel was big and somewhat ectatic, it bifurcated to two distal PLV branches. The upper branch had a 40-50% ostial proximal disease, then the circumflex gave two further smaller PLV branches with mild diffuse irregularities of less than 30%. There was an atrial branch from the midcircumflex that gave the PLV subtotal branch from the right collaterals. There was some competitive flow noted as well. Left anterior descending artery branch from the left main artery, diffuse proximal ostial 20-30% disease, the stents in the LAD were widely patent, the midportion had a 40-50% narrowing, the distal portion of the LAD had diffuse 20-30% disease. Right coronary artery was from right sinus of Valsalva, was sub-selectively cannulated. Diffuse proximal to mid disease ranging between 40-50%, then diffuse mid to distal disease ranging between 20-30%. The stent in the mid RCA was also patent with mild to moderate diffuse restenosis. The distal PLV branch was subtotal but again it had good collaterals from the left system and I do believe that this is the culprit vessel that brought him to this admission. It is worth noting that there was no damping of pressure upon cannulation of the ostium of the RCA. LEFT VENTRICULOGRAM: Revealed mid to distal and apical hypokinesis to akinesis, especially at the apex which is old from his prior infarction 11 years ago. The proximal portions move the best, especially the inferior wall, the left ventricular systolic function is moderately reduced. Ejection fraction by visual estimate is about 35-40% which has not changed from before. CONCLUSION OF THE CARDIAC CATHETERIZATION: 1. Diffuse calcified proximal, moderate LCX disease with diffuse mild to moderate disease distally. 2. Minimal disease of the left main. 3. Mild to moderate diffuse disease of the LAD with patent stents in the LAD. 4. Diffuse moderate proximal to mid RCA disease. Subtotal PLV branch with left to right collaterals. 5. Moderately reduced left ventricular systolic function with wall motion abnormality from a prior old infarction. 6. Elevated left ventricular end diastolic pressure at 18 mmHg. RECOMMENDATIONS: With the diffuse nature of his disease and the subtotal occlusion of the PLV branch of the RCA, however, he is getting good left to right collaterals, management would be medically. He will be on dual antiplatelet therapy for 9-12 months. Would continue tight control of his lipids. His Lipitor will be changed to high dose Crestor at 40 mg daily. Will followup his clinical response as outpatient. MD REBECCA Swenson/SHAAN/pablo , 08:24 AM , 09:24 AM
--- NOTE | 2017-04-06 11:16 | EKG ---
Date Performed: 04/05/2017 Time Performed: 14:37:48 PTAGE: 66 years EKG: ATRIAL FIBRILLATION WITH ABERRANT CONDUCTION OR VENTRICULAR PREMATURE COMPLEXES NONSPECIFIC T-WAVE ABNORMALITY ABNORMAL ECG Since the prior tracing, there has been no significant change PREVIOUS TRACING : 04/05/2017 09.58 DOCTOR: Kirsty Luz Interpretating Date/Time 04/06/2017 11:12:08
--- NOTE | 2017-04-06 11:16 | EKG ---
Date Performed: 04/05/2017 Time Performed: 09:58:18 PTAGE: 66 years EKG: Sinus rhythm WITH FIRST DEGREE AV BLOCK WITH OCCASIONAL SUPRAVENTRICULAR PREMATURE COMPLEXES NONSPECIFIC T-WAVE A BNORMALITY ABNORMAL ECG Since the prior tracing, there has been no significant change PREVIOUS TRACING : 10/20/2016 08.01 DOCTOR: Kirsty Luz Interpretating Date/Time 04/06/2017 11:12:00
--- NOTE | 2017-04-06 11:16 | EKG ---
Date Performed: 04/05/2017 Time Performed: 17:30:11 PTAGE: 66 years EKG: Sinus rhythm WITH FIRST DEGREE AV BLOCK WITH OCCASIONAL VENTRICULAR PREMATURE COMPLEXES NONSPECIFIC T-WAVE ABNORM ALITY ABNORMAL ECG Since the prior tracing, there has been no significant change PREVIOUS TRACING : 04/05/2017 14.37 DOCTOR: Kirsty Luz Interpretating Date/Time 04/06/2017 11:12:17
--- NOTE | 2017-04-06 11:17 | EKG ---
Date Performed: 04/06/2017 Time Performed: 04:41:46 PTAGE: 66 years EKG: Sinus bradycardia with 1st degree A-V block Possible anterior infarct - age undetermined In ferior/lateral ST-T changes are nonspecific Abnormal ECG Since the prior tracing, there has been no s ignificant change PREVIOUS TRACING : 04/05/2017 17.30 DOCTOR: Kirsty Luz Interpretating Date/Time 04/06/2017 11:13:16
[2017-04-06] MEDS ORDERED: IOHEXOL 350 MG/ML 100 ML BTL (for Cath Lab) OTHER ONE (11:23)
[2017-04-06 11:33] LABS: HEMATOCRIT 35.3 % (39.0-51.0); MEAN CELL VOLUME 89.9 FL (80.0-100.0); MEAN CORPUSCULAR HEMOGLOBIN 30.6 PG (27.0-34.0); MEAN CORPUSCULAR HGB CONC 34.1 % (32.0-36.0); PLATELET COUNT 196 TH/MM3 (150-450); RED BLOOD COUNT 3.93 MIL/MM3 (4.50-5.90); WHITE BLOOD COUNT 6.7 TH/MM3 (4.0-11.0)
[2017-04-06 11:50] LABS: HEMOGLOBIN 12.8 GM/DL (13.0-17.0)
[2017-04-06 12:30] LABS: BICARBONATE 22.5 MEQ/L (21.0-32.0); CALCIUM 8.1 MG/DL (8.5-10.1); CREATININE 0.79 MG/DL (0.60-1.30)
[2017-04-06 12:39] LABS: DIGOXIN 0.4 NG/ML (0.8-2.0); TROPONIN I 0.2 NG/ML (0.02-0.05)
[2017-04-06 15:52] LABS: HEMATOCRIT 34.2 % (39.0-51.0); HEMOGLOBIN 11.7 GM/DL (13.0-17.0)
[2017-04-06] MEDS ORDERED: METOPROLOL TARTRATE 50 MG TAB PO ONE ×2 (16:00→22:00)
--- NOTE | 2017-04-06 16:43 | HHI.PR ---
Subjective Remarks Patient seen this afternoon after cardiac catheterization. Patient denies any chest pain or shortness of breath. He does report some nausea following cardiac catheterization which has resolved. Discussed with nursing, large hematoma following cardiac cath. FemoStop in place. Management as per cardiology. Objective Vital Signs Date Time Temp Pulse Resp B/P (MAP) Pulse Ox O2 Delivery O2 Flow Rate FiO2 04/06/17 16:37 75 04/06/17 15:21 99.0 91 20 136/88 (104) 100 04/06/17 15:00 99 04/06/17 14:06 100 04/06/17 13:00 88 04/06/17 12:00 85 04/06/17 11:05 97.2 90 20 144/76 (98) 100 04/06/17 11:00 90 04/06/17 10:00 72 04/06/17 09:11 97.8 60 22 132/88 (103) 100 04/06/17 09:00 82 04/06/17 07:00 81 04/06/17 06:25 64 04/06/17 05:00 56 04/06/17 04:15 97.5 60 160/89 (112) 100 04/06/17 04:14 55 04/06/17 03:18 52 04/06/17 02:14 56 04/06/17 01:00 62 04/06/17 00:00 70 04/06/17 00:00 98.3 72 149/97 (114) 100 04/05/17 23:17 75 04/05/17 22:00 76 04/05/17 21:00 74 04/05/17 20:00 70 04/05/17 19:00 82 04/05/17 19:00 98.1 76 147/98 (114) 98 04/05/17 19:00 74 04/05/17 18:00 69 04/05/17 18:00 04/05/17 18:00 98.4 73 17 148/92 (110) 100 I/O 04/05/17 04/05/17 04/05/17 04/06/17 04/06/17 04/06/17 06:59 14:59 22:59 06:59 14:59 22:59 Intake Total 240 ml Output Total 600 ml Balance -360 ml Intake Oral 240 ml Output Urine Total 600 ml Result Diagram: 04/06/17 1407 04/06/17 1015 Objective Remarks GENERAL: Patient sitting up in bed. Appears comfortable. SKIN: Warm and dry. HEAD: Normocephalic. EYES: No scleral icterus. No injection or drainage. NECK: Supple, trachea midline. No JVD or lymphadenopathy. CARDIOVASCULAR: Regular rate and rhythm without murmurs, gallops, or rubs. RESPIRATORY: Breath sounds equal bilaterally. No accessory muscle use. GASTROINTESTINAL: Abdomen soft, non-tender, nondistended. MUSCULOSKELETAL: No cyanosis, or edema. Large hematoma right groin. FemoStop in place. Peripheral sensation intact. BACK: Nontender without obvious deformity. No CVA tenderness. A/P Assessment and Plan //Acute NSTEMI following previous myocardial infarction //Coronary artery disease with 4 stents placed 2006 //Hypertension //Hyperlipidemia //Legally blind = EKG shows sinus rhythm with first-degree AV block and occasional ectopyWith troponins max of 0.71, however trending down. = Status post cardiac catheterization on 04/06 with diffuse CAD. Increase statin. Continue antiplatelet therapy. //Complication of right femoral hematoma following cardiac catheterization Management as per cardiology. Discharge Planning Pending cardiology clearance. Saulo Steiner MD Apr 06, 2017 16:43
[2017-04-06 20:05] LABS: HEMATOCRIT 33.4 % (39.0-51.0); HEMOGLOBIN 11.3 GM/DL (13.0-17.0)
[2017-04-06] MEDS ORDERED: REMOVE OLD LIDOCAINE PATCH T-DERMAL SCH (21:00)
[2017-04-06] MEDS ORDERED: CRESTOR 40 MG PO SCH (21:00)
[2017-04-06] MEDS: LATANOPROST 0.005% OPHT SOLN 2.5 ML BTL EACH EYE SCH (21:00)
[2017-04-06] MEDS: DIGOXIN 0.125 MG TAB PO SCH (21:03)
[2017-04-06] MEDS: ESCITALOPRAM OXALATE 20 MG TAB PO SCH (21:03)
[2017-04-06] MEDS: oxyCODONE/ACETAMINOPHEN 10 MG/325 MG TAB PO PRN (21:03)
[2017-04-06] MEDS ORDERED: ISOSORBIDE MONONITRATE 30 MG CR TAB (IMDUR) PO ONE (22:00)
[2017-04-06] MEDS ORDERED: PILL SPLITTER OTHER PRN (22:15)
[2017-04-07] VITALS (22 sets, daily range): BP systolic 96–130; BP diastolic 62–76; PULSE 60–78; RESP 16–18; TEMP 97.8–98.6; O2SAT 96–99
[2017-04-07] MEDS: oxyCODONE/ACETAMINOPHEN 10 MG/325 MG TAB PO PRN ×2 (04:56→14:02)
[2017-04-07 07:26] LABS: AUTOMATED NEUTROPHIL # 4.8 TH/MM3 (1.8-7.7); BASOPHIL % 0.2 % (0.0-2.0); EOSINOPHIL % 0.3 % (0.0-4.0); HEMATOCRIT 28.7 % (39.0-51.0); HEMOGLOBIN 9.9 GM/DL (13.0-17.0); LYMPH % 20.4 % (9.0-44.0); LYMPHOCYTE # 1.4 TH/MM3 (1.0-4.8); MEAN CORPUSCULAR HEMOGLOBIN 31.1 PG (27.0-34.0); MEAN CORPUSCULAR HGB CONC 34.6 % (32.0-36.0); MEAN PLATELET VOLUME 7.9 FL (7.0-11.0); MONO % 11.6 % (0.0-8.0); MONOCYTE # 0.8 TH/MM3 (0-0.9); NEUT % 67.5 % (16.0-70.0); PLATELET COUNT 197 TH/MM3 (150-450); RED BLOOD COUNT 3.19 MIL/MM3 (4.50-5.90); RED CELL DISTRIBUTION WIDTH 14.3 % (11.6-17.2); WHITE BLOOD COUNT 7.1 TH/MM3 (4.0-11.0)
[2017-04-07 07:46] LABS: BICARBONATE 25.1 MEQ/L (21.0-32.0); CALCIUM 8.3 MG/DL (8.5-10.1); CREATININE 0.83 MG/DL (0.60-1.30); MAGNESIUM 1.9 MG/DL (1.5-2.5)
--- NOTE | 2017-04-07 08:58 | EKG ---
Date Performed: 04/06/2017 Time Performed: 10:19:46 PTAGE: 66 years EKG: Sinus rhythm with borderline 1st degree A-V block. Possible anterior infarct - age undetermined Lateral T wave ch anges may be due to myocardial ischemia Abnormal ECG PREVIOUS TRACING : 04/06/2017 04.41 Since the prior tracing, there has been no significant crowe DOCTOR: Tara Thomas Interpretating Date/Time 04/07/2017 08:55:46
[2017-04-07] MEDS: LIDOCAINE HCL 5% PATCH T-DERMAL SCH (09:00)
[2017-04-07] MEDS ORDERED: ATORVASTATIN 80 MG TAB PO SCH (09:00)
[2017-04-07] MEDS: CLOPIDOGREL 75 MG TAB PO SCH (09:00)
[2017-04-07] MEDS: SODIUM CHLORIDE 5% OPHT SOLN 15 ML BTL EACH EYE SCH ×2 (09:00→20:19)
[2017-04-07] MEDS: SODIUM CHLORIDE 0.9% FLUSH 10 ML FLUSH IV FLUSH SCH ×2 (09:00→20:19)
[2017-04-07] MEDS ORDERED: ISOSORBIDE MONONITRATE 60 MG CR TAB (IMDUR) PO SCH (09:00)
[2017-04-07] MEDS: METOPROLOL SUCCINATE 50 MG EXTENDED RELEASE TAB PO SCH (10:25)
[2017-04-07] MEDS: CELECOXIB 200 MG CAP PO SCH ×2 (10:25→20:18)
[2017-04-07] MEDS: DOCUSATE SODIUM 50 MG/SENNA 8.6 MG TAB PO SCH ×2 (10:26→20:19)
[2017-04-07] MEDS: FAMOTIDINE 20 MG TAB PO SCH ×2 (10:26→20:18)
[2017-04-07] MEDS: FERROUS SULFATE 325 MG (65 MG ELEMENTAL IRON) TAB PO SCH ×3 (10:28→17:33)
[2017-04-07] MEDS ORDERED: ASPIRIN 81 MG CHEW TAB PO SCH (10:30)
[2017-04-07 13:06] LABS: HEMATOCRIT 26.8 % (39.0-51.0); HEMOGLOBIN 9.2 GM/DL (13.0-17.0)
--- NOTE | 2017-04-07 16:59 | HHI.PR ---
Subjective Remarks Patient seen this morning around 11 AM. Sitting up in chair. Says he is feeling a little better today. Denies any nausea or vomiting. Objective Vital Signs Date Time Temp Pulse Resp B/P (MAP) Pulse Ox O2 Delivery O2 Flow Rate FiO2 04/07/17 16:01 68 04/07/17 15:40 98.0 68 18 130/70 (90) 96 04/07/17 15:35 68 04/07/17 14:13 75 04/07/17 13:50 73 04/07/17 12:39 78 04/07/17 12:39 98.0 78 18 126/76 (93) 97 04/07/17 11:04 78 04/07/17 09:54 76 04/07/17 09:45 99 21 04/07/17 08:11 78 04/07/17 06:05 64 04/07/17 05:00 72 04/07/17 04:00 64 04/07/17 04:00 97.9 67 107/74 (85) 99 04/07/17 03:00 60 04/07/17 02:00 60 04/07/17 01:00 62 04/07/17 00:18 97.8 66 96/66 (76) 98 04/07/17 00:00 62 04/06/17 23:00 67 04/06/17 22:00 74 04/06/17 21:00 80 04/06/17 20:00 76 04/06/17 20:00 98.5 78 131/76 (94) 98 04/06/17 19:00 73 04/06/17 18:07 69 04/06/17 17:00 70 I/O 04/06/17 04/06/17 04/06/17 04/07/17 04/07/17 04/07/17 07:00 15:00 23:00 07:00 15:00 23:00 Intake Total 240 ml 480 ml 240 ml Output Total 600 ml 500 ml 350 ml Balance -360 ml -20 ml -110 ml Intake Oral 240 ml 480 ml 240 ml Output Urine Total 600 ml 500 ml 350 ml Result Diagram: 04/07/17 1240 04/07/17 0554 Objective Remarks GENERAL: Patient sitting up in chair at bedside. Appears comfortable. SKIN: Warm and dry. HEAD: Normocephalic. EYES: No scleral icterus. No injection or drainage. NECK: Supple, trachea midline. No JVD . CARDIOVASCULAR: Regular rate and rhythm without murmurs, gallops, or rubs. RESPIRATORY: Breath sounds equal bilaterally. No accessory muscle use. GASTROINTESTINAL: Abdomen soft, non-tender, nondistended. MUSCULOSKELETAL: No cyanosis, or edema. Large hematoma right groin. Stable from yesterday peripheral sensation intact. BACK: Nontender without obvious deformity. No CVA tenderness. A/P Assessment and Plan //Acute NSTEMI following previous myocardial infarction //Coronary artery disease with 4 stents placed 2006 //Hypertension //Hyperlipidemia //Legally blind = EKG shows sinus rhythm with first-degree AV block and occasional ectopyWith troponins max of 0.71, however trending down. = Status post cardiac catheterization on 04/06 with diffuse CAD. Increase statin. Continue antiplatelet therapy. //Complication of right femoral hematoma following cardiac catheterization Management as per cardiology. = Anemia 9.2 from 12 yesterday. Continue to monitor hemoglobin. Check hemoglobin this afternoon. Cardiology managing. Discharge Planning Pending cardiology clearance. Saulo Steiner MD Apr 07, 2017 16:59
[2017-04-07 20:15] LABS: HEMOGLOBIN 8.9 GM/DL (13.0-17.0)
[2017-04-07] MEDS: DIGOXIN 0.125 MG TAB PO SCH (20:18)
[2017-04-07] MEDS: LATANOPROST 0.005% OPHT SOLN 2.5 ML BTL EACH EYE SCH (20:19)
[2017-04-07] MEDS: ESCITALOPRAM OXALATE 20 MG TAB PO SCH (20:19)
== END 2017-04-07 20:54 | disposition home or self-care (01) | DRG 281 ==
LOC: NEPE 09:42 → NEDA 14:29 → HCIS 17:40
PROVIDERS: ADMIT Internal Medicine; ATTEND Internal Medicine
PROC: B2111ZZ Fluoroscopy of Multiple Coronary Arteries using Low Osmolar Contrast (ICD-10-PCS; 2017-04-06)
PROC: B2151ZZ Fluoroscopy of Left Heart using Low Osmolar Contrast (ICD-10-PCS; 2017-04-06)
PROC: B41F1ZZ Fluoroscopy of Right Lower Extremity Arteries using Low Osmolar Contrast (ICD-10-PCS; 2017-04-06)
PROC: 4A023N7 Measurement of Cardiac Sampling and Pressure, Left Heart, Percutaneous Approach (ICD-10-PCS; principal; 2017-04-06 07:30)
DX: I21.4 Non-ST elevation (NSTEMI) myocardial infarction (principal); I97.630 Postprocedural hematoma of a circulatory system organ or structure following a cardiac catheterization; I11.0 Hypertensive heart disease with heart failure; I50.9 Heart failure, unspecified; I25.2 Old myocardial infarction; K21.9 Gastro-esophageal reflux disease without esophagitis; I44.0 Atrioventricular block, first degree; E78.5 Hyperlipidemia, unspecified; I25.5 Ischemic cardiomyopathy; I25.10 Atherosclerotic heart disease of native coronary artery without angina pectoris; I25.84 Coronary atherosclerosis due to calcified coronary lesion; R11.0 Nausea; D64.9 Anemia, unspecified; G47.33 Obstructive sleep apnea (adult) (pediatric); H54.8 Legal blindness, as defined in USA; M19.90 Unspecified osteoarthritis, unspecified site; F32.9 Major depressive disorder, single episode, unspecified; Y84.0 Cardiac catheterization as the cause of abnormal reaction of the patient, or of later complication, without mention of misadventure at the time of the procedure; Z87.891 Personal history of nicotine dependence; Z91.19 Patient's noncompliance with other medical treatment and regimen; Z95.5 Presence of coronary angioplasty implant and graft; Z95.810 Presence of automatic (implantable) cardiac defibrillator; Z98.1 Arthrodesis status
CPT/HCPCS: 71045; 80048; 80061; 80162; 82550; 82552; 83735; 84484; 85014; 85018; 85025; 85027; 85610; 85730; 86850; 86900; 86901; 93005; 93458; 99152; 99153; C1760; C1769; C1893; G0269; J0461; J1200; J1644; J1650; J2250; J2270; J2405; J2720; J3010; J3246; Q9967

== ENCOUNTER 2017-04-09 13:09 | Inpatient (IN) | payer MEDICARE, BC ==
[~2017-04-09] VITALS: Ht 175.3 cm; Wt 98.5 kg
[2017-04-09] VITALS (12 sets, daily range): BP systolic 129–156; BP diastolic 62–83; PULSE 86–96; RESP 15–22; TEMP 98.5–99.2; O2SAT 96–100
[~2017-04-09 13:09] MED LIST changes: +ZANT150T2 PO; +[UNRECOGNIZED DRUG - REMARK]
[2017-04-09] MEDS ORDERED: SODIUM CHLORIDE 0.9% FLUSH 10 ML FLUSH IVF PRN (13:45)
[2017-04-09 13:53] LABS: BASOPHIL % 0.3 % (0.0-2.0); EOSINOPHIL % 0.2 % (0.0-4.0); HEMATOCRIT 27.9 % (39.0-51.0); HEMOGLOBIN 9.8 GM/DL (13.0-17.0); LYMPHOCYTE # 0.4 TH/MM3 (1.0-4.8); MEAN CELL VOLUME 89.4 FL (80.0-100.0); MEAN CORPUSCULAR HEMOGLOBIN 31.3 PG (27.0-34.0); MEAN CORPUSCULAR HGB CONC 35.1 % (32.0-36.0); MEAN PLATELET VOLUME 7.8 FL (7.0-11.0); MONO % 5.3 % (0.0-8.0); MONOCYTE # 0.3 TH/MM3 (0-0.9); NEUT % 87.2 % (16.0-70.0); PLATELET COUNT 222 TH/MM3 (150-450); RED BLOOD COUNT 3.12 MIL/MM3 (4.50-5.90); RED CELL DISTRIBUTION WIDTH 13.8 % (11.6-17.2); WHITE BLOOD COUNT 5.8 TH/MM3 (4.0-11.0)
--- NOTE | 2017-04-09 13:55 | PD ---
HPI Chief Complaint: Chest Pain Time Seen by Provider: 13:31 Travel History International Travel<30 days: No Contact w/Intl Traveler<30days: No Traveled to known affect area: No History of Present Illness HPI The patient's 66 years old and complains of chest pain nausea vomiting diarrhea. He reports a coronary catheter 3 days prior. Multiple vessel disease was observed and the patient was not amenable to stenting with a recommendation for medical management. He went home feeling well 2 days prior however became nauseated and vomited multiple times and had diarrhea overnight. Postoperatively bleeding in the region of the right groin occurred late no ecchymosis. He complains of some tenderness in that area. PFSH Past Medical History Hx Anticoagulant Therapy: Yes (PT TAKES 162MG ASPIRIN DAILY) Arthritis: Yes Asthma: No Autoimmune Disease: No Blood Disorders: No Anxiety: No Depression: Yes Heart Rhythm Problems: No Cancer: No Cardiac Catheterization: Yes Cardiovascular Problems: Yes ([place]) High Cholesterol: Yes Chemotherapy: No Chest Pain: No Congestive Heart Failure: Yes COPD: No Cerebrovascular Accident: No Diabetes: No Diminished Hearing: No Endocrine: No Gastrointestinal Disorders: No GERD: Yes Glaucoma: No Genitourinary: No Headaches: No Hepatitis: No Hiatal Hernia: No Hypertension: Yes Immune Disorder: No Kidney Stones: No Musculoskeletal: Yes Neurologic: Yes (NUMBNESS HANDS, HEAD, NECK, SHOULDERS ) Psychiatric: Yes (DEPRESSION HX) Reproductive: No Respiratory: No Immunizations Current: Yes Migraines: No Myocardial Infarction: Yes (07/13) Radiation Therapy: No Renal Failure: No Seizures: No Sickle Cell Disease: No Sleep Apnea: Yes Thyroid Disease: No Ulcer: No PNEUMOCCOCAL Vaccine (Year): 2006 Past Surgical History Abdominal Surgery: Yes (APPENDECTOMY) AICD: Yes (GUIDANT VITALITY DS/MODEL T125 DR SERIAL [id number]) Appendectomy: Yes ( 01/03/06) Arteriovenous Shunt: No Body Medical Devices: PLATES AND SCREWS IN CERVICAL SPINE. Cardiac Surgery: Yes (AICD PLACED 12/13) Cholecystectomy: No Coronary Stent: Yes (4 STENTS 07/13) Ear Surgery: No Endocrine Surgery: No Eye Surgery: Yes (BILATERAL CATARACTS WITH LENS IMPLANT IN 1987, BILATERAL WITH REAPIR IN ) Genitourinary Surgery: No Gynecologic Surgery: No Hysterectomy: Yes ([place]) Insulin Pump: No Joint Replacement: No Neurologic Surgery: Yes (CERVICAL FUSION 2000) Oral Surgery: No Pacemaker: Yes (AND DEFIB/MODELS T125/0184/4135 SERIAL [id number] TESHA) Thoracic Surgery: No Other Surgery: Yes Social History Alcohol Use: Yes (2-3 liquor/NIGHT) Tobacco Use: No Substance Use: No Allergies-Medications (Allergen,Severity, Reaction): Coded Allergies: No Known Allergies (Verified Adverse Reaction, Unknown, 04/05/17) Reported Meds & Prescriptions Reported Meds & Active Scripts Active Lidoderm (Lidocaine) 5 % Adh..patch 1 Patch TD DAILY Apply 1 patch daily to right low back and right lateral hip as needed for pain control Oxycodone-Acetaminophen 10-325 mg Tab 1 Tab PO Q6H PRN Reported Zantac (Ranitidine HCl) 150 Mg Tab 150 Mg PO DAILY Celecoxib 200 Mg Cap 200 Mg PO BID Aspirin 81 Mg Chew 162 Mg CHEW DAILY Escitalopram (Escitalopram Oxalate) 20 Mg Tab 20 Mg PO HS Vitamin A 8,000 Unit Capsule 1 Cap PO BID Saw [place] (Serenoa Repens) 450 Mg Cap 1 Cap PO DAILY Androgel Pump Topical (Testosterone) 1.62 % Gel 81 Mg TOPICAL DAILY Spironolactone 25 Mg Tab 25 Mg PO DAILY Joshua 128 Opth Drops (Sodium Chloride Opth Drops) 5% Soln 1 Drop EACH EYE BID Ramipril 5 Mg Cap 5 Mg PO DAILY @ 1400 Nitroglycerin SL (Nitroglycerin) 0.4 Mg Subl 0.4 Mg SL DIRECTED PRN ONE TABLET UNDER THE TONGUE NEEDED FOR CHEST PAIN, MAY REPEAT EVERY FIVE MINUTES FOR A TOTAL OF 3 DOSES OR CALL 911 IF NO RELIEF Toprol XL (Metoprolol Succinate) 100 Mg Tab 100 Mg PO DAILY Latanoprost Opth Drops (Latanoprost) 0.005% Drops 1 Drop EACH EYE HS Refrigerate until opened. Isosorbide Mononitrate ER (Isosorbide Mononitrate) 30 Mg Gibson 90 Mg PO DAILY Ipratropium Nasal 0.03% [place] 1 [place] EACH NARE TID Digoxin 0.25 Mg Tab 0.125 Mg PO HS Atorvastatin (Atorvastatin Calcium) 80 Mg Tab 80 Mg PO HS Review of Systems Except as stated in HPI: all other systems reviewed are Neg Physical Exam Narrative GENERAL: 56-year-old male well-nourished well-developed mild distress Vital Signs Date Time Temp Pulse Resp B/P (MAP) Pulse Ox O2 Delivery O2 Flow Rate FiO2 04/09/17 13:37 97 Nasal Cannula 2.00 04/09/17 13:36 97 Nasal Cannula 2.00 04/09/17 13:26 74 18 99 Aerosol Mask 04/09/17 13:16 98.6 87 15 133/62 (85) 99 SKIN: Warm and dry. Extensive ecchymosis about the right lower abdomen and right anterior lower leg. HEAD: Atraumatic. Normocephalic. EYES: Patient is blind. ENT: No nasal bleeding or discharge. Mucous membranes pink and moist. NECK: Trachea midline. No JVD. CARDIOVASCULAR: Regular rate and rhythm. RESPIRATORY: No accessory muscle use. Clear to auscultation. Breath sounds equal bilaterally. GASTROINTESTINAL: Abdomen soft, non-tender, nondistended. Hepatic and splenic margins not palpable. MUSCULOSKELETAL: Extremities without clubbing, cyanosis, or edema. No obvious deformities. NEUROLOGICAL: Awake and alert. No obvious cranial nerve deficits. Motor grossly within normal limits. Five out of 5 muscle strength in the arms and legs. Normal speech. PSYCHIATRIC: Appropriate mood and affect; insight and judgment normal. Data Data Last Documented VS Vital Signs Date Time Temp Pulse Resp B/P (MAP) Pulse Ox O2 Delivery O2 Flow Rate FiO2 04/09/17 15:36 96 18 156/83 (107) 97 Nasal Cannula 2.00 04/09/17 13:16 98.6 Orders Orders Electrocardiogram (04/09/17 13:31) Basic Metabolic Panel (Bmp) (04/09/17 13:31) Ckmb (Isoenzyme) Profile (04/09/17 13:31) Complete Blood Count With Diff (04/09/17 13:31) Magnesium (Mg) (04/09/17 13:31) Prothrombin Time / Inr (Pt) (04/09/17 13:31) Act Partial Throm Time (Ptt) (04/09/17 13:31) Troponin I (04/09/17 13:31) Ecg Monitoring (04/09/17 13:31) Bilateral Bp Monitoring (04/09/17 13:31) Iv Access Insert/Monitor (04/09/17 13:31) Oximetry (04/09/17 13:31) Oxygen Administration (04/09/17 13:31) Sodium Chloride 0.9% Flush (Ns Flush) (04/09/17 13:45) Chest, Pa & Lat (04/09/17 13:31) CKMB (04/09/17 13:39) CKMB% (04/09/17 13:39) Sodium Chloride 0.9... W/Pantoprazole In (04/09/17 14:30) Admit Order (Ed Use Only) (04/09/17 ) Habilitative Interventionist / Telemetry MARIA D.Q8H (04/09/17 15:54) Vital Signs (Adult) Q4H (04/09/17 15:54) Activity Bed Rest (04/09/17 15:54) Labs Laboratory Tests Test 04/09/17 13:39 White Blood Count 5.8 TH/MM3 Red Blood Count 3.12 MIL/MM3 Hemoglobin 9.8 GM/DL Hematocrit 27.9 % Mean Corpuscular Volume 89.4 FL Mean Corpuscular Hemoglobin 31.3 PG Mean Corpuscular Hemoglobin Concent 35.1 % Red Cell Distribution Width 13.8 % Platelet Count 222 TH/MM3 Mean Platelet Volume 7.8 FL Neutrophils (%) (Auto) 87.2 % Lymphocytes (%) (Auto) 7.0 % Monocytes (%) (Auto) 5.3 % Eosinophils (%) (Auto) 0.2 % Basophils (%) (Auto) 0.3 % Neutrophils # (Auto) 5.0 TH/MM3 Lymphocytes # (Auto) 0.4 TH/MM3 Monocytes # (Auto) 0.3 TH/MM3 Eosinophils # (Auto) 0.0 TH/MM3 Basophils # (Auto) 0.0 TH/MM3 CBC Comment DIFF FINAL Differential Comment Prothrombin Time 10.5 SEC Prothromb Time International Ratio 1.0 RATIO Activated Partial Thromboplast Time 25.4 SEC Blood Urea Nitrogen 18 MG/DL Creatinine 0.82 MG/DL Random Glucose 106 MG/DL Calcium Level 8.3 MG/DL Magnesium Level 1.9 MG/DL Sodium Level 138 MEQ/L Potassium Level 3.9 MEQ/L Chloride Level 107 MEQ/L Carbon Dioxide Level 22.6 MEQ/L Anion Gap 8 MEQ/L Estimat Glomerular Filtration Rate 95 ML/MIN Total Creatine Kinase 190 U/L Creatine Kinase MB 16.7 NG/ML Troponin I 2.86 NG/ML MDM Medical Decision Making Medical Screen Exam Complete: Yes Emergency Medical Condition: Yes Medical Record Reviewed: Yes Differential Diagnosis NSTEMI, unstable angina, coronary vasospasm, PE, PTX, aortic dissection, pericarditis, myocarditis, endocarditis, PNA, esophageal disease, aneurysm, musculoskeletal etiologies, anxiety, cocaine/sympathomimetic abuse Narrative Course CBC & BMP Diagram 04/09/17 13:39 Calcium Level 8.3 L, Magnesium Level 1.9 Troponin 2.86 Last Impressions Chest X-Ray 04/09/17 1331 Signed Impressions: Service Date/Time: Sunday, April 09, 2017 14:13 - CONCLUSION: No acute disease. Jason Hager MD EKG shows sinus rhythm rate 95 normal axis with frequent PVCs Patient will be admitted. Case discussed with for Dr. Lott, no heparin, give Plavix, give nitro PRN, order R groin arterial aneurysm US, consult Dr Lott d/w Dr Shell Critical Care Narrative Aggregate critical care time was 40 minutes. Time to perform other separately billable procedures was not included in the critical care time. My time did not include minutes spent treating any other patients simultaneously or on activities that did not directly contribute to the patient's treatment. The services I provided to this patient were to treat and/or prevent clinically significant deterioration that could result in: Cardiopulmonary arrest, cardiovascular decompensation I provided critical care services requiring my management, as noted below: Chart data review, documentation time, medication orders and management, vital sign assessments/reviewing monitor data, ordering and reviewing lab tests, ordering and interpreting/reviewing x-rays and diagnostic studies, care of the patient and discussion of the patient with the admitting physicians. Diagnosis Primary Impression: NSTEMI (non-ST elevated myocardial infarction) Admitting Information Admitting Physician Requests: Admit James Cadet MD Apr 09, 2017 13:55
[2017-04-09 14:04] LABS: PROTHROMBIN TIME - PATIENT 10.5 SEC (9.8-11.6)
[2017-04-09 14:23] LABS: BICARBONATE 22.6 MEQ/L (21.0-32.0); BLOOD UREA NITROGEN 18 MG/DL (7-18); CALCIUM 8.3 MG/DL (8.5-10.1); CHLORIDE 107 MEQ/L (98-107); CREATININE 0.82 MG/DL (0.60-1.30); GLOMERULAR FILTRATION RATE 95 ML/MIN (>89); GLUCOSE,RANDOM 106 MG/DL (74-106); MAGNESIUM 1.9 MG/DL (1.5-2.5); SODIUM (NA) 138 MEQ/L (136-145)
[2017-04-09 14:26] LABS: TROPONIN I 2.86 NG/ML (0.02-0.05)
[2017-04-09] MEDS ORDERED: PANTOPRAZOLE INJ 80 MG in SODIUM CHLORIDE 0.9% INJ 100 ML IV SCH (14:30)
--- NOTE | 2017-04-09 14:31 | RADRPT ---
EXAM DATE/TIME: 04/09/2017 14:13 [facility] COMPARISON: CHEST PA & LAT, October 20, 2016, 9:07. INDICATIONS : Chest Pain MEDICAL HISTORY : Congestive heart failure. Myocardial infarction. SURGICAL HISTORY : Pacemaker. 4 heart stents, defibrillator ENCOUNTER: Initial ACUITY: 1 day PAIN SCORE: 6/10 LOCATION: Bilateral chest FINDINGS: PA and lateral views of the chest demonstrate the lungs to be symmetrically aerated without evidence of mass, infiltrate or effusion. The cardiomediastinal contours are unremarkable. Osseous structure s are intact. Pacing device again seen. The patient is status post anterior cervical discectomy and i ntervertebral fusion with hardware seen. CONCLUSION: No acute disease. Jason Hager MD on April 09, 2017 at 14:29 Board Certified Radiologist. This report was verified electronically.
--- NOTE | 2017-04-09 16:04 | HHI.HP ---
[facility] Service Family Medicine Primary Care Physician Darian Harrell MD Admission Diagnosis NSTEMI; Ecchymosis; N/V Diagnoses: International Travel<30 Days: No Contact w/Intl Traveler<30days: No Known Affected Area: No History of Present Illness Patient is a 66-year-old male past medical history of RI 2 with stent placement x4 and pacer-defibrillator placement presents to the ED with 1 day h/ o of shortness of breath and chest pain in the setting of recent cardiac catheterization that was done on 04/06 due to RI. Patient stated he had a heart attack on Monday and received a cardiac cath on . Dr. Lott. Patient reports that the shortness of breath and chest pain started Monday night and had been accompanied by weakness, weakness, N/V and diarrhea, dizziness. Vomited x2 of Monday. Diarrhea x2 Monday night and this morning. He took nitroglycerin twice last night and once this morning. Patient also reports that he has needed the assistance of a cane since Monday to ambulate due to dizziness when he stands. Of note patient did report that today, as he was walking to bathroom he felt dizzy loss of balance and felt sitting on the coffee table. Denies any loss of consciousness or hitting his head. Review of Systems Constitutional: COMPLAINS OF: Fatigue, Chills, Dizziness, Change in appetite ( since ), DENIES: Fever Eyes: COMPLAINS OF: Blurred vision (chronic,no vision on Right eye, left eye is hand motion), Vision loss Ears, nose, mouth, throat: COMPLAINS OF: Throat pain (started lastnight), Running Nose (chronic, due to allergies) Respiratory: COMPLAINS OF: Shortness of breath, DENIES: Cough, Wheezing Cardiovascular: COMPLAINS OF: Chest pain, DENIES: Palpitations, Syncope, Lower Extremity Edema Gastrointestinal: COMPLAINS OF: Abdominal pain, Diarrhea, Nausea, Vomiting, DENIES: Bloody stools Genitourinary: COMPLAINS OF: Urinary frequency, Dysuria Musculoskeletal: COMPLAINS OF: Back pain (chronic, back surgery in 11/2016 fusion of tail bone, oxycodone 10) Integumentary: DENIES: Rash Hematologic/lymphatic: COMPLAINS OF: Bruising (from the cath) Neurologic: COMPLAINS OF: Headache, Paresthesias (chronic in feet), DENIES: Seizures Psychiatric: DENIES: Confusion Past Family Social History Past Medical History First heart attack in 2007, 4 stents and pacer-defibrillator placement Second heart attack 04/05/17, s/p cardiac cath 04/06/17 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 Past Surgical History cataract surgery neck surgery to remove disc and fusion c4-6 L4-5 removed Tail bone fusion Reported Medications Reported Meds & Active Scripts Active Lidoderm (Lidocaine) 5 % Adh..patch 1 Patch TD DAILY Apply 1 patch daily to right low back and right lateral hip as needed for pain control Oxycodone-Acetaminophen 10-325 mg Tab 1 Tab PO Q6H PRN Reported Zantac (Ranitidine HCl) 150 Mg Tab 150 Mg PO DAILY Celecoxib 200 Mg Cap 200 Mg PO BID Aspirin 81 Mg Chew 162 Mg CHEW DAILY Escitalopram (Escitalopram Oxalate) 20 Mg Tab 20 Mg PO HS Vitamin A 8,000 Unit Capsule 1 Cap PO BID Saw [place] (Serenoa Repens) 450 Mg Cap 1 Cap PO DAILY Androgel Pump Topical (Testosterone) 1.62 % Gel 81 Mg TOPICAL DAILY Spironolactone 25 Mg Tab 25 Mg PO DAILY- off since weds am Joshua 128 Opth Drops (Sodium Chloride Opth Drops) 5% Soln 1 Drop EACH EYE BID Ramipril 5 Mg Cap 5 Mg PO DAILY @ 1400- off since Nitroglycerin SL (Nitroglycerin) 0.4 Mg Subl 0.4 Mg SL DIRECTED PRN ONE TABLET UNDER THE TONGUE NEEDED FOR CHEST PAIN, MAY REPEAT EVERY FIVE MINUTES FOR A TOTAL OF 3 DOSES OR CALL 911 IF NO RELIEF Toprol XL (Metoprolol Succinate) 100 Mg Tab 100 Mg PO DAILY Latanoprost Opth Drops (Latanoprost) 0.005% Drops 1 Drop EACH EYE HS Refrigerate until opened. Isosorbide Mononitrate ER (Isosorbide Mononitrate) 30 Mg Gibson 90 Mg PO DAILY-- 90 daily Ipratropium Nasal 0.03% Plato 1 Plato EACH NARE TID Digoxin 0.25 Mg Tab 0.125 Mg PO HS Atorvastatin (Atorvastatin Calcium) 80 Mg Tab 80 Mg PO HS- started crestor 40mg HS iron 325mg TID Allergies: Coded Allergies: No Known Allergies (Verified Allergy, Unknown, 04/09/17) Family History Father and uncle from heart attack at age 39 and 36, respectively. Mother- throat CA Social History lives with smoking- quit 1981 alcohol- bourbon and water, 2 tall glasses a night illicit drugs: denies Physical Exam Vital Signs Vital Signs Date Time Temp Pulse Resp B/P (MAP) Pulse Ox O2 Delivery O2 Flow Rate FiO2 04/09/17 15:36 96 18 156/83 (107) 97 Nasal Cannula 2.00 04/09/17 13:37 97 Nasal Cannula 2.00 04/09/17 13:36 97 Nasal Cannula 2.00 04/09/17 13:26 74 18 99 Aerosol Mask 04/09/17 13:16 98.6 87 15 133/62 (85) 99 Physical Exam GENERAL: This is a well-nourished, well-developed patient, in mild distress SKIN: No rashes. Cool and dry. Ecchymosis noted across the lower abdominal area and groin area, nontender to palpation. HEAD: Atraumatic. Normocephalic. EYES: Pupils equal round and reactive. Extraocular motions intact. No scleral icterus. No injection or drainage. ENT: Nose without bleeding, purulent drainage or septal hematoma. Throat without erythema, tonsillar hypertrophy or exudate. Uvula midline. Airway patent. NECK: Trachea midline. No JVD or lymphadenopathy. Supple, nontender, no meningeal signs. CARDIOVASCULAR: Regular rate and rhythm without murmurs, gallops, or rubs. RESPIRATORY: Clear to auscultation. No wheezes, rales, or rhonchi. GASTROINTESTINAL: Abdomen soft, non-tender, nondistended. No hepato-splenomegaly , or palpable masses. No guarding. MUSCULOSKELETAL: Extremities without clubbing, cyanosis, or edema. No joint tenderness, effusion, or edema noted. No calf tenderness. Negative Homans sign bilaterally. NEUROLOGICAL: Awake and alert. Cranial nerves II through XII intact. Motor and sensory grossly within normal limits. Five out of 5 muscle strength in all muscle groups. Normal speech. Laboratory Laboratory Tests Test 04/09/17 13:39 White Blood Count 5.8 Red Blood Count 3.12 Hemoglobin 9.8 Hematocrit 27.9 Mean Corpuscular Volume 89.4 Mean Corpuscular Hemoglobin 31.3 Mean Corpuscular Hemoglobin Concent 35.1 Red Cell Distribution Width 13.8 Platelet Count 222 Mean Platelet Volume 7.8 Neutrophils (%) (Auto) 87.2 Lymphocytes (%) (Auto) 7.0 Monocytes (%) (Auto) 5.3 Eosinophils (%) (Auto) 0.2 Basophils (%) (Auto) 0.3 Neutrophils # (Auto) 5.0 Lymphocytes # (Auto) 0.4 Monocytes # (Auto) 0.3 Eosinophils # (Auto) 0.0 Basophils # (Auto) 0.0 CBC Comment DIFF FINAL Differential Comment Prothrombin Time 10.5 Prothromb Time International Ratio 1.0 Activated Partial Thromboplast Time 25.4 Blood Urea Nitrogen 18 Creatinine 0.82 Random Glucose 106 Calcium Level 8.3 Magnesium Level 1.9 Sodium Level 138 Potassium Level 3.9 Chloride Level 107 Carbon Dioxide Level 22.6 Anion Gap 8 Estimat Glomerular Filtration Rate 95 Total Creatine Kinase 190 Creatine Kinase MB 16.7 Troponin I 2.86 Result Diagram: 04/09/17 1339 04/09/17 1339 Imaging Last Impressions Chest X-Ray 04/09/17 1331 Signed Impressions: Service Date/Time: Sunday, April 09, 2017 14:13 - CONCLUSION: No acute disease. Jason Hager MD Lower Extremity Ultrasound 04/09/17 0000 Signed Impressions: Service Date/Time: Sunday, April 09, 2017 18:30 - CONCLUSION: 1. Negative for pseudoaneurysm. Large hematoma at the right groin. MD Nazanin العليi VTE Risk Assessment Caprini VTE Risk Assessment: Mod/High Risk (score >= 2) Caprini Risk Assessment Model Point Value = 1 Point Value = 2 Point Value = 3 Point Value = 5 Age 41-60 Minor surgery BMI > 25 kg/m2 Swollen legs Varicose veins or History of unexplained or recurrent spontaneous Oral contraceptives or hormone replacement Sepsis (< 1 month) Serious lung disease, including pneumonia (< 1 month) Abnormal pulmonary function Acute myocardial infarction Congestive heart failure (< 1 month) History of inflammatory bowel disease Medical patient at bed rest Age 61-74 Arthroscopic surgery Major open surgery (> 45 min) Laparoscopic surgery (> 45 min) Malignancy Confined to bed (> 72 hours) Immobilizing plaster cast Central venous access Age >= 75 History of VTE Family history of VTE Factor V Leiden Prothrombin [id number] Lupus anticoagulant Anticardiolipin antibodies Elevated serum homocysteine Heparin-induced thrombocytopenia Other congenital or acquired thrombophilia Stroke (< 1 month) Elective arthroplasty Hip, pelvis, or leg fracture Acute spinal cord injury (< 1 month) Prophylaxis Regimen Total Risk Factor Score Risk Level Prophylaxis Regimen 0-1 Low Early ambulation 2 Moderate Order ONE of the following: *Sequential Compression Device (SCD) *Heparin 5000 units SQ BID 3-4 Higher Order ONE of the following medications: *Heparin 5000 units SQ TID *Enoxaparin/Lovenox 40 mg SQ daily (WT < 150 kg, CrCl > 30 mL/min) *Enoxaparin/Lovenox 30 mg SQ daily (WT < 150 kg, CrCl > 10-29 mL/min) *Enoxaparin/Lovenox 30 mg SQ BID (WT < 150 kg, CrCl > 30 mL/min) AND/OR *Sequential Compression Device (SCD) 5 or more Highest Order ONE of the following medications: *Heparin 5000 units SQ TID (Preferred with Epidurals) *Enoxaparin/Lovenox 40 mg SQ daily (WT < 150 kg, CrCl > 30 mL/min) *Enoxaparin/Lovenox 30 mg SQ daily (WT < 150 kg, CrCl > 10-29 mL/min) *Enoxaparin/Lovenox 30 mg SQ BID (WT < 150 kg, CrCl > 30 mL/min) AND *Sequential Compression Device (SCD) Assessment and Plan Assessment and Plan Patient is a 66-year-old male past medical history of RI 2 with prior h/o stent placement x4 and pacer-defibrillator placement presents to the ED with 1 day h/o of shortness of breath and chest pain in the setting of recent cardiac catheterization that was done on 04/06 due to RI. SOB and CP are accompanied by dizziness, vomiting, diarrhea and weakness. Patient found to have elevated troponin of 2.86 in the ED. Admitted for further cardiac w/u. Code Status Full code Discussed Condition With RAYSA Elizondo [facility] Dr. Hansen Problem List: (1) Chest pain ICD Codes: R07.9 - Chest pain, unspecified Status: Acute Plan: Patient with 1 day h/o CP and SOB accompanied by dizziness, vomiting, diarrhea and weakness. A showing significant cardia history of recent RI on 04/05/17 and cardiac cath on 04/06/17. Troponin x1 elevated to 2.86, CK-MB: 16.7 EKG: Sinus rhythm with occasional ventricular premature complexes, ST-T wave abnormalities and ST deviation -patient placed on telemetry -Continue to monitor -Cardiology consultation, she recommendations Patient to be started on Plavix and aspirin Continue with nitroglycerin as needed for pain relief -f/u serial troponin and EKG -Continue with home medication (2) Shortness of breath ICD Codes: R06.02 - Shortness of breath Status: Acute Plan: Patient with 1 day h/o CP and SOB accompanied by dizziness, vomiting, diarrhea and weakness. -Patient stated shortness of breath has improved since being on oxygen. Currently with O2 saturations are 97% on 2 L nasal cannula. -Shortness of breath can be due to likely cardiac related -CXR: No acute disease -Lower extremity ultrasound: Negative for pseudoaneurysm large hematoma on right groin. -Titrate oxygen as needed -See plan above. (3) Chronic pain ICD Codes: G89.29 - Other chronic pain Status: Chronic Plan: Continue with home dose of Oxycodone-Acetaminophen 10mg Q6h PRN (4) Alcohol use ICD Codes: Z78.9 - Other specified health status Status: Chronic Plan: Patient stated he drinks about 2 total glasses of bourbon and water daily -Patient placed on CIWA protocol (5) Nutrition, metabolism, and development symptoms ICD Codes: R63.8 - Other symptoms and signs concerning food and fluid intake Plan: Fluids: Electrolytes: Within normal limits, replete as needed Nutrition: Heart healthy DVT ppx: SCDs, lovanox Physician Certification 2 Midnight Certification Type: Admission for Inpatient Services Order for Inpatient Services The services are ordered in accordance with Medicare regulations or non- Medicare payer requirements, as applicable. In the case of services not specified as inpatient-only, they are appropriately provided as inpatient services in accordance with the 2-midnight benchmark. Estimated LOS (days): 3 days is the estimated time the patient will need to remain in the hospital, assuming treatment plan goals are met and no additional complications. Post-Hospital Plan: Not yet determined Ivone Bianchi MD, R1 Apr 09, 2017 16:04
[2017-04-09] MEDS ORDERED: LORazepam 1 MG TAB PO PRN (16:45)
[2017-04-09] MEDS ORDERED: SODIUM CHLORIDE 0.9% FLUSH 10 ML FLUSH IV FLUSH PRN (16:45)
[2017-04-09] MEDS ORDERED: NALOXONE HCL 0.4 MG/ML AMP IV PUSH PRN (16:45)
[2017-04-09] MEDS ORDERED: LACTULOSE SYRUP 20 GM/30 ML CUP PO PRN (16:45)
[2017-04-09] MEDS ORDERED: SENNOSIDES 8.6 MG TAB PO PRN (16:45)
[2017-04-09] MEDS ORDERED: LORazepam 2 MG TAB PO PRN (16:45)
[2017-04-09] MEDS ORDERED: ACETAMINOPHEN 325 MG TAB PO PRN (16:45)
[2017-04-09] MEDS ORDERED: ONDANSETRON HCL 4 MG/2 ML VIAL IVP PRN (16:45)
[2017-04-09] MEDS ORDERED: MAGNESIUM HYDROXIDE SUSP 30 ML CUP PO PRN (16:45)
[2017-04-09] MEDS ORDERED: FLUMAZENIL 0.5 MG/5 ML VIAL IV PUSH PRN (16:45)
[2017-04-09] MEDS ORDERED: LORazepam 2 MG/ML VIAL IV PUSH PRN ×4 (16:45)
[2017-04-09] MEDS ORDERED: BISACODYL 10 MG SUPP RECTAL PRN (16:45)
[2017-04-09] MEDS ORDERED: IPRATROPIUM NASAL SCH (18:00)
[2017-04-09] MEDS ORDERED: PILL SPLITTER OTHER PRN (18:15)
[2017-04-09] MEDS: ENOXAPARIN SODIUM 40 MG/0.4 ML SYRINGE SQ SCH (18:38)
[2017-04-09] MEDS: oxyCODONE/ACETAMINOPHEN 10 MG/325 MG TAB PO PRN (18:38)
--- NOTE | 2017-04-09 18:56 | RADRPT ---
EXAM DATE/TIME: 04/09/2017 18:30 [facility] COMPARISON: No previous studies available for comparison. INDICATIONS : Pseudoaneurysm. MEDICAL HISTORY : Myocardial infarction. Congestive heart failure. Hypercholesterolemia. Legally blind. Neck pain. Hear ing loss. Numbness. Coronary artery disease. Anticoagulant therapy. Hyperlipidemia. Hypertension. Dys pnea. Sleep apnea. Gastroesophageal reflux disease. Dysuria. Arthritis. Depression. SURGICAL HISTORY : Coronary artery stent. Pacemaker. Appendectomy. Bilateral cataract surgery. Cervical fusion. Cardiac catheterization. Lower discectomy. ENCOUNTER: Initial ACUITY: 1 week PAIN SCORE: 5/10 LOCATION: Right leg. AREA EVALUATED: Right leg/groin. FINDINGS: There is a hematoma in the right groin measuring at least 10.4 x 6 x 2.6 cm. It extends medially from the groin to the mid thigh. No evidence for pseudoaneurysm. CONCLUSION: 1. Negative for pseudoaneurysm. Large hematoma at the right groin. David Couch MD on April 09, 2017 at 18:52 Board Certified Radiologist. This report was verified electronically.
[2017-04-09] MEDS: SODIUM CHLORIDE 5% OPHT SOLN 15 ML BTL EACH EYE SCH (21:00)
[2017-04-09] MEDS: LATANOPROST 0.005% OPHT SOLN 2.5 ML BTL EACH EYE SCH (22:28)
[2017-04-09] MEDS: DIGOXIN 0.125 MG TAB PO SCH (22:29)
[2017-04-09] MEDS: CLOPIDOGREL 75 MG TAB PO SCH (22:29)
[2017-04-09] MEDS: ESCITALOPRAM OXALATE 20 MG TAB PO SCH (22:29)
[2017-04-09] MEDS: ASPIRIN 325 MG TAB PO SCH (22:30)
[2017-04-09] MEDS: SODIUM CHLORIDE 0.9% FLUSH 10 ML FLUSH IV FLUSH SCH (22:31)
[2017-04-09] MEDS: CELECOXIB 200 MG CAP PO SCH (22:31)
[2017-04-10] VITALS (32 sets, daily range): BP systolic 110–140; BP diastolic 68–86; PULSE 61–100; RESP 16–20; TEMP 98.1–100.2; O2SAT 92–100
[2017-04-10 03:35] LABS: BASOPHIL % 0.2 % (0.0-2.0); EOSINOPHIL # 0.1 TH/MM3 (0-0.4); EOSINOPHIL % 1.2 % (0.0-4.0); HEMATOCRIT 24.9 % (39.0-51.0); HEMOGLOBIN 8.4 GM/DL (13.0-17.0); LYMPH % 17.4 % (9.0-44.0); MEAN CELL VOLUME 90.8 FL (80.0-100.0); MEAN CORPUSCULAR HEMOGLOBIN 30.7 PG (27.0-34.0); MEAN CORPUSCULAR HGB CONC 33.8 % (32.0-36.0); MEAN PLATELET VOLUME 7.7 FL (7.0-11.0); MONO % 11.1 % (0.0-8.0); MONOCYTE # 0.6 TH/MM3 (0-0.9); NEUT % 70.1 % (16.0-70.0); PLATELET COUNT 198 TH/MM3 (150-450); RED BLOOD COUNT 2.74 MIL/MM3 (4.50-5.90); RED CELL DISTRIBUTION WIDTH 13.7 % (11.6-17.2); WHITE BLOOD COUNT 5.7 TH/MM3 (4.0-11.0)
[2017-04-10 03:51] LABS: ALBUMIN 2.8 GM/DL (3.4-5.0); AST (GOT) 54 U/L (15-37); BICARBONATE 29.5 MEQ/L (21.0-32.0); BLOOD UREA NITROGEN 19 MG/DL (7-18); CHLORIDE 106 MEQ/L (98-107); CREATININE 0.82 MG/DL (0.60-1.30); GLOMERULAR FILTRATION RATE 95 ML/MIN (>89); GLUCOSE,RANDOM 98 MG/DL (74-106); SODIUM (NA) 139 MEQ/L (136-145)
[2017-04-10 03:54] LABS: ALKALINE PHOSPHATASE 52 U/L (45-117); ALT (GPT) 29 U/L (12-78); TOTAL BILIRUBIN ADULT 0.9 MG/DL (0.2-1.0); TOTAL PROTEIN 5.2 GM/DL (6.4-8.2)
[2017-04-10] MEDS ORDERED: CALCIUM CARBONATE 1.25 GM (CA 500 MG) TAB PO ONE (07:00)
[2017-04-10] MEDS: CLOPIDOGREL 75 MG TAB PO SCH (09:00)
[2017-04-10] MEDS: LIDOCAINE HCL 5% PATCH T-DERMAL SCH (09:00)
[2017-04-10] MEDS: SODIUM CHLORIDE 5% OPHT SOLN 15 ML BTL EACH EYE SCH ×2 (09:00→20:55)
[2017-04-10] MEDS: CELECOXIB 200 MG CAP PO SCH ×2 (09:43→20:58)
[2017-04-10] MEDS: ASPIRIN 325 MG TAB PO SCH (09:43)
[2017-04-10] MEDS: FAMOTIDINE 20 MG TAB PO SCH (09:45)
[2017-04-10] MEDS: METOPROLOL SUCCINATE 50 MG EXTENDED RELEASE TAB PO SCH (09:45)
[2017-04-10] MEDS: ISOSORBIDE MONONITRATE 60 MG CR TAB (IMDUR) PO SCH (09:49)
[2017-04-10] MEDS: SODIUM CHLORIDE 0.9% FLUSH 10 ML FLUSH IV FLUSH SCH ×2 (09:51→20:55)
--- NOTE | 2017-04-10 11:47 | HHI.FPPN ---
Subjective Remarks Patient seen and examined at bedside. No acute events overnight. He stated that he does not have chest pain. He also reports that his nausea and vomiting have resolved. He is tolerating po intake. His shortness of breath has improved. (Ivone Bianchi MD, R1) Objective Vitals Vital Signs Date Time Temp Pulse Resp B/P (MAP) Pulse Ox O2 Delivery O2 Flow Rate FiO2 04/10/17 11:00 98.1 77 16 110/73 (85) 96 04/10/17 07:35 66 16 134/86 (102) 98 04/10/17 07:30 98.3 75 16 131/85 (100) 92 04/10/17 07:00 75 04/10/17 05:18 66 04/10/17 04:32 75 16 140/81 (100) 96 04/10/17 04:00 72 04/10/17 04:00 73 04/10/17 03:00 72 04/10/17 02:53 76 16 140/81 (100) 97 04/10/17 02:00 78 04/10/17 01:00 100 04/10/17 00:00 82 04/10/17 00:00 85 04/09/17 23:41 Nasal Cannula 2.00 04/09/17 23:00 90 04/09/17 22:22 99.2 86 16 129/72 (91) 96 04/09/17 22:00 86 04/09/17 21:00 92 04/09/17 20:00 96 04/09/17 20:00 95 04/09/17 19:42 16 04/09/17 19:00 90 04/09/17 18:20 90 04/09/17 18:03 98.5 91 22 139/83 (101) 100 04/09/17 17:38 93 04/09/17 17:32 04/09/17 15:36 96 18 156/83 (107) 97 Nasal Cannula 2.00 04/09/17 13:37 97 Nasal Cannula 2.00 04/09/17 13:36 97 Nasal Cannula 2.00 04/09/17 13:26 74 18 99 Aerosol Mask 04/09/17 13:16 98.6 87 15 133/62 (85) 99 I/O 04/09/17 04/09/17 04/09/17 04/10/175/18 3/5/18 07:00 15:00 23:00 07:00 15:00 23:00 Output Total 300 ml Balance -300 ml Output Urine Total 300 ml # Voids 1 1 (Ivone Bianchi MD, R1) Result Diagram: 04/10/17 0256 04/10/17 0256 Imaging Last Impressions Chest X-Ray 04/09/17 1331 Signed Impressions: Service Date/Time: Sunday, April 09, 2017 14:13 - CONCLUSION: No acute disease. Jason Hager MD Lower Extremity Ultrasound 04/09/17 0000 Signed Impressions: Service Date/Time: Sunday, April 09, 2017 18:30 - CONCLUSION: 1. Negative for pseudoaneurysm. Large hematoma at the right groin. David Couch MD Objective Remarks GENERAL: This is a well-nourished, well-developed patient, laying bed in NAD. SKIN: No rashes. Cool and dry. Ecchymosis noted across the lower abdominal area and groin area, nontender to palpation. HEAD: Atraumatic. Normocephalic. EYES: No scleral icterus. No injection or drainage. ENT: Nose without bleeding, purulent drainage or septal hematoma. NECK: Trachea midline. No JVD or lymphadenopathy. Supple, nontender, no meningeal signs. CARDIOVASCULAR: Regular rate and rhythm without murmurs, gallops, or rubs. RESPIRATORY: Clear to auscultation. No wheezes, rales, or rhonchi. GASTROINTESTINAL: Abdomen soft, non-tender, nondistended. No hepato-splenomegaly , or palpable masses. No guarding. MUSCULOSKELETAL: Extremities without clubbing, cyanosis, or edema. No joint tenderness, effusion, or edema noted. No calf tenderness. Negative Homans sign bilaterally. NEUROLOGICAL: AAOx3. Normal speech (Ivone Bianchi MD, R1) A/P Assessment and Plan Patient is a 66-year-old male past medical history of [place] 2 with prior h/o stent placement x4 and pacer-defibrillator placement presents to the ED with 1 day h/o of shortness of breath and chest pain in the setting of recent cardiac catheterization that was done on 04/06 due to [place]. SOB and CP are accompanied by dizziness, vomiting, diarrhea and weakness. Patient found to have elevated troponin of 2.86 in the ED. Admitted for further cardiac w/u. (Ivone Bianchi MD, R1) Attending Attestation This gentleman was seen with the entire medicine team, his nurse, his . He is essentially legally blind. He was nauseated overnight but this has resolved and is not having any chest pain or shortness of breath. He was concerned that he was not getting his iron and that his eyedrops were twice a day instead of once a day. He will be seen later today by his outreach professional. He has a complicated cardiovascular history which was reviewed with the medicine team. He had a WY 11 years ago, and another WY 5 days ago and had heart catheterization last . He has 4 stents, and also has a pacer and defibrillator. He did have significant bleeding into his groin and his hemoglobin has dropped from 13-8.9. He is currently on 2 L with 96% saturation. Exam is as noted above. We will recommend he take his iron with orange juice and also change his eyedrops regimen. Patient seen and examined. Case reviewed and discussed with the resident team. Agree with plan of care as discussed with me and documented in the resident note. (Inge Hansen MD) Problem List: (1) Chest pain ICD Codes: R07.9 - Chest pain, unspecified Status: Resolved Plan: Patient with 1 day h/o CP and SOB accompanied by dizziness, vomiting, diarrhea and weakness. SOB has improved and rest of sxs have resolved. A showing significant cardiac history of recent [place] on 04/05/17 and cardiac cath on 04/06/17. Troponin x1 elevated to 2.86, CK-MB: 16.7 EKG: Sinus rhythm with occasional ventricular premature complexes, ST-T wave abnormalities and ST deviation -patient placed on telemetry -Continue to monitor -Cardiology consultation, she recommendations Plavix held -c/w aspirin Continue with nitroglycerin as needed for pain relief -troponin up-trended 2.86-->4.53-->4.17 and EKG with 1 episode of Vtac last night, patient asymptomatic -Continue with home medication (2) Shortness of breath ICD Codes: R06.02 - Shortness of breath Status: Acute Plan: Patient with 1 day h/o CP and SOB accompanied by dizziness, vomiting, diarrhea and weakness. SOB has improved and rest of sxs have resolved. -Patient stated shortness of breath has improved since being on oxygen. Currently with O2 saturations are 96% on 2 L nasal cannula. -Shortness of breath can be due to likely cardiac related, greatly improved this am. -CXR: No acute disease -Lower extremity ultrasound: Negative for pseudoaneurysm large hematoma on right groin. -Titrate oxygen as needed -See plan above. (3) Chronic pain ICD Codes: G89.29 - Other chronic pain Status: Chronic Plan: Continue with home dose of Oxycodone-Acetaminophen 10mg Q6h PRN (4) Alcohol use ICD Codes: Z78.9 - Other specified health status Status: Chronic Plan: Patient stated he drinks about 2 total glasses of bourbon and water daily -Patient placed on CIWA protocol (5) Nutrition, metabolism, and development symptoms ICD Codes: R63.8 - Other symptoms and signs concerning food and fluid intake Plan: Fluids: Not indicated at this time Electrolytes: Within normal limits, replete as needed Nutrition: Heart healthy DVT ppx: SCDs, lovanox (Ivone Bianchi MD, R1) Ivone Bianchi MD, R1 Apr 10, 2017 11:47 Inge Hansen MD Apr 10, 2017 13:29
[2017-04-10] MEDS: FERROUS SULFATE 325 MG (65 MG ELEMENTAL IRON) TAB PO SCH ×2 (14:04→20:55)
[2017-04-10] MEDS: NITROGLYCERIN 0.4 MG SL 25 TABS/BTL SL PRN ×2 (15:42→18:04)
[2017-04-10] MEDS: oxyCODONE/ACETAMINOPHEN 10 MG/325 MG TAB PO PRN ×2 (15:43→20:58)
[2017-04-10] MEDS: ENOXAPARIN SODIUM 40 MG/0.4 ML SYRINGE SQ SCH (18:07)
[2017-04-10] MEDS ORDERED: NITROGLYCERIN 2% OINT 1 GM PACKET TOPICAL ONE (19:00)
[2017-04-10 19:13] LABS: HEMATOCRIT 24.1 % (39.0-51.0); HEMOGLOBIN 8.7 GM/DL (13.0-17.0)
[2017-04-10] MEDS: LATANOPROST 0.005% OPHT SOLN 2.5 ML BTL EACH EYE SCH (20:54)
[2017-04-10] MEDS: ATORVASTATIN 80 MG TAB PO SCH (20:55)
[2017-04-10] MEDS: DIGOXIN 0.125 MG TAB PO SCH (20:56)
[2017-04-10] MEDS: ESCITALOPRAM OXALATE 20 MG TAB PO SCH (20:56)
[2017-04-10] MEDS ORDERED: SODIUM CHLORIDE 5% OPHT OINT 3.5 GM TUBE EACH EYE SCH (21:00)
[2017-04-11] VITALS (26 sets, daily range): BP systolic 104–129; BP diastolic 65–81; PULSE 62–78; RESP 14–18; TEMP 98.2–98.9; O2SAT 96–100
[2017-04-11] MEDS: NITROGLYCERIN 2% OINT 1 GM PACKET TOPICAL SCH ×5 (05:28→23:57)
[2017-04-11] MEDS: ISOSORBIDE MONONITRATE 60 MG CR TAB (IMDUR) PO SCH (05:29)
[2017-04-11] MEDS: HEPARIN SODIUM - SQ 10,000 UNITS/ML VIAL SQ SCH ×3 (05:29→21:16)
[2017-04-11 06:36] LABS: HEMATOCRIT 24.6 % (39.0-51.0); HEMOGLOBIN 8.6 GM/DL (13.0-17.0); MEAN CORPUSCULAR HEMOGLOBIN 31.5 PG (27.0-34.0); MEAN CORPUSCULAR HGB CONC 35.1 % (32.0-36.0); MEAN PLATELET VOLUME 7.8 FL (7.0-11.0); PLATELET COUNT 222 TH/MM3 (150-450); RED BLOOD COUNT 2.73 MIL/MM3 (4.50-5.90); RED CELL DISTRIBUTION WIDTH 14.1 % (11.6-17.2); WHITE BLOOD COUNT 8.5 TH/MM3 (4.0-11.0)
[2017-04-11 07:01] LABS: ALBUMIN 2.6 GM/DL (3.4-5.0); ALT (GPT) 25 U/L (12-78); AST (GOT) 38 U/L (15-37); BICARBONATE 27.7 MEQ/L (21.0-32.0); BLOOD UREA NITROGEN 16 MG/DL (7-18); CALCIUM 7.9 MG/DL (8.5-10.1); CHLORIDE 107 MEQ/L (98-107); CREATININE 0.82 MG/DL (0.60-1.30); GLOMERULAR FILTRATION RATE 95 ML/MIN (>89); GLUCOSE,RANDOM 92 MG/DL (74-106); SODIUM (NA) 140 MEQ/L (136-145)
[2017-04-11 07:04] LABS: ALKALINE PHOSPHATASE 56 U/L (45-117); TOTAL BILIRUBIN ADULT 0.9 MG/DL (0.2-1.0); TOTAL PROTEIN 5.4 GM/DL (6.4-8.2)
--- NOTE | 2017-04-11 07:12 | MB ---
cc: Alfredo Lott MD, Ryan R MD DATE OF CONSULT: 04/10/2017 HISTORY OF PRESENT ILLNESS: Mr. Kaufman is a pleasant 66-year-old gentleman known to me with a history of anterior wall myocardial infarction, status post left anterior descending artery stenting when he presented with the anterior wall CT in 2006, history of PCI to the RCA that year as well. He has done well since then to come about five days ago with a non-ST elevation CT and had a cardiac catheterization that revealed borderline moderate to significant disease of the ostium of the circumflex, diffuse disease of the LAD and the ostium of the RCA was also diseased. However, had ARIA grade 3 flow. There was significant tight PLV branch disease receiving collaterals from the left system and it was felt that probably is the culprit vessel. Because of the diffuse nature of the disease, it was felt that medical therapy would be appropriate. He comes back with nausea and vomiting and recurrent chest discomfort and nonspecific ST changes in his EKG with elevated troponin to around 4.5. Currently he is pain-free. Denies palpitations. He had a syncopal spell at home when he presented with the nausea and vomiting. He is status post dual chamber ICD in 2006. Generator change was performed in 2013. Denies orthopnea, PND or leg swelling. Denies claudication. ALLERGIES: NO KNOWN DRUG ALLERGIES. FAMILY HISTORY: Positive for coronary artery disease and hypertension and cancer, otherwise noncontributory. SOCIAL HISTORY: Used to smoke but stopped in 1981. He has 11 pack-year history of smoking. He drinks one bourbon daily and he used to go to cardiac rehab three times per week up until his recent admission. Denies recreational drug abuse. He is legally blind. He is and lives with his , Jagruti. PAST MEDICAL HISTORY/PAST SURGICAL HISTORY: 1. As mentioned above. 2. History of hypertension. 3. Hyperlipidemia. 4. Osteoarthritis. 5. GE reflux disease. 6. Obstructive sleep apnea on C-PAP therapy. 7. Ischemic cardiomyopathy with ejection fraction around 35-40% which was confirmed by the recent cardiac catheterization. 8. History of mild to moderate carotid disease (not hemodynamically significant as of his latest carotid ultrasound in November 2016). 9. Cataract surgery in 1988. 10. Back surgery in 1995. 11. Neck surgery in 2004. 12. Fusion of the "tailbone" in November 2016. MEDICATIONS AT HOME: 1. Digoxin 0.125 mg p.o. at bedtime. 2. Aspirin 81 mg p.o. daily. 3. Plavix 75 mg p.o. daily which has been on hold here. 4. Crestor 40 mg p.o. at bedtime. 5. Imdur 90 mg p.o. daily. 6. Metoprolol succinate 100 mg p.o. daily. 7. He was on spironolactone 25 mg daily and Altace 5 mg daily; however, those two are on hold since he was discharged home a few days ago. PHYSICAL EXAMINATION: GENERAL: A 66-year-old gentleman lying in bed in no apparent distress, alert and oriented x 3, answering questions appropriately. VITAL SIGNS: Blood pressure is 120/70 mmHg, pulse 75 beats/minute and regular, respirations 14 per minute, afebrile. HEENT: Head is normocephalic. Pupils equal and reactive. Throat is within normal limits. He is legally blind. NECK: Supple. No carotid bruit, no thyromegaly, no jugular venous distention noted. LUNG EXAM: A few rhonchi at the bases but overall clear to auscultation and percussion. CARDIOVASCULAR SYSTEM: S1 and S2 are normal with an S4 gallop and distant heartbeats. ABDOMINAL EXAM: Lax and obese and nontender. Normoactive bowel sounds. No organomegaly. No masses felt. EXTREMITIES: No clubbing, cyanosis or edema. RIGHT GROIN: A huge ecchymosis noted. No hematoma. It has been diffused. No bruit noted. Apparently they have done an ultrasound on it with no pseudoaneurysm or A-V fistula. NEUROLOGIC: Grossly intact. He is legally blind. RECTAL EXAM: Deferred. LABORATORY DATA: White count of 5.7, hemoglobin of 8.4 and a platelet count of 198. Dig level on April 06 was less than 0.4. BUN of 19, creatinine 0.82, sodium 139, potassium 3.9. AST is elevated at 54, albumin is 2.8 and bilirubin is normal at 0.9. Troponin I was 2.86, 4.53 and 4.17. EKG Sinus rhythm with occasional PVCs/APCs and diffuse nonspecific ST-T wave changes, poor R-wave progression which is old. CHEST X-RAY Unremarkable. ASSESSMENT AND RECOMMENDATION: 1. Coronary artery disease, now with recurrent stuttering non-ST elevation CT. After reviewing the cardiac catheterization films again and looking at his anatomy, there is borderline left main disease. However, more impressive is the ostium proximal circumflex disease that is feeding the PLV branch with collaterals. There is also ostial RCA disease and proximal to mid borderline significant disease. The LAD has diffuse disease as well, moderate to borderline significant in the midportion. I believe that his anatomy is best served, because of his recurrent presentation, with coronary artery bypass graft surgery (5 SYNTAX score and also low LV systolic function) which would have survival benefit. The case was discussed with Dr. Samara Quinn and he reviewed the films and he agrees. In the meantime, I would like to stabilize him from the H and H standpoint. Nitro paste will be added to his regimen as well as subcu heparin. We will avoid Plavix (discontinued) and his last Effient dose was on April 05. He will continue on the aspirin. Nitro paste will be added to his regimen. Continue on beta blockers and watch his H and H and transfuse if less than 8 because of his current presentation. His spironolactone and Altace are on hold because of relatively low blood pressure at the present time. Repeat his labs in the a.m. 2. Hyperlipidemia. Continue on high-dose Crestor or Atorvastatin as an alternative in the hospital. 3. Platelet aggregation testing will be tracked by Dr. Quinn through his routine orders as he mentioned. In the meantime would avoid Plavix/Effient or Lovenox and keep on subcu heparin and aspirin. The above was discussed with the patient and explained in detail. I left a message to his and will call her back again with further information. I thank you for the consultation. MD REBECCA Swenson/UGO , 07:16 PM , 07:11 AM
[2017-04-11] MEDS ORDERED: PAPAVERINE INJ 60 MG, NITROGLYCERIN INJ 100 MCG, DILTIAZEM INJ 100 MG in SODIUM CHLORID... IRRIGATION SCH (08:45)
[2017-04-11] MEDS ORDERED: SODIUM CHLORIDE 0.9% FLUSH 10 ML FLUSH IV FLUSH PRN (08:45)
[2017-04-11] MEDS ORDERED: CHLORHEXIDINE GLUCONATE 4% SOLN 120 ML BTL TOPICAL SCH (08:45)
[2017-04-11] MEDS: METOPROLOL SUCCINATE 50 MG EXTENDED RELEASE TAB PO SCH (08:45)
[2017-04-11] MEDS ORDERED: INSULIN REGULAR (IV INFUSION) 100 UNITS in SODIUM CHLORIDE 0.9% INJ 99 ML IV PRN (08:45)
[2017-04-11] MEDS ORDERED: METOPROLOL TARTRATE 25 MG TAB PO SCH (08:45)
[2017-04-11] MEDS ORDERED: DEXTROSE 50% IN WATER 50 ML VIAL(D50) IV PUSH PRN (08:45)
[2017-04-11] MEDS: FERROUS SULFATE 325 MG (65 MG ELEMENTAL IRON) TAB PO SCH ×2 (08:45→21:16)
[2017-04-11] MEDS: ASPIRIN 325 MG TAB PO SCH (08:45)
[2017-04-11] MEDS ORDERED: CEFAZOLIN INJ 500 MG in SODIUM CHLORIDE 0.9% IRR BTL 500 ML IRRIGATION SCH (08:45)
[2017-04-11] MEDS: FAMOTIDINE 20 MG TAB PO SCH (08:45)
[2017-04-11] MEDS: LIDOCAINE HCL 5% PATCH T-DERMAL SCH (08:47)
[2017-04-11] MEDS: CELECOXIB 200 MG CAP PO SCH ×2 (08:53→21:00)
[2017-04-11] MEDS ORDERED: CALCIUM CARBONATE 1.25 GM (CA 500 MG) TAB PO ONE (09:15)
[2017-04-11 10:34] LABS: PROTHROMBIN TIME - PATIENT 10.4 SEC (9.8-11.6)
--- NOTE | 2017-04-11 10:34 | HHI.FPPN ---
Subjective Remarks She seen and examined at bedside. Patient denies any chest pain. Shortness of breath is improved. No other complaints. Of note pt was given ativan overnight due to a CIWA score of 10. Nurse reports that patient had hallucinations after ativan was given. (Ivone Bianchi MD, R1) Objective Vitals Vital Signs Date Time Temp Pulse Resp B/P (MAP) Pulse Ox O2 Delivery O2 Flow Rate FiO2 04/11/17 09:30 98.3 63 16 124/70 (88) 98 04/11/17 07:00 64 04/11/17 06:00 66 04/11/17 05:00 67 04/11/17 04:00 68 04/11/17 03:00 76 04/11/17 03:00 98.9 76 18 104/65 (78) 98 04/11/17 02:00 75 04/11/17 01:00 77 04/11/17 00:00 75 04/10/17 23:00 82 04/10/17 23:00 76 16 127/81 (96) 97 04/10/17 22:00 79 04/10/17 21:58 18 04/10/17 21:00 80 04/10/17 20:00 84 04/10/17 20:00 100.2 84 20 117/71 (86) 99 04/10/17 18:13 18 04/10/17 18:10 75 18 117/68 (84) 100 04/10/17 18:00 76 04/10/17 17:49 78 20 116/69 (85) 100 04/10/17 17:00 74 04/10/17 16:49 98.7 69 16 121/70 (87) 95 04/10/17 16:00 78 04/10/17 16:00 76 04/10/17 15:47 119/85 (96) 04/10/17 15:42 130/82 (98) 04/10/17 15:00 74 04/10/17 14:00 66 04/10/17 13:00 61 04/10/17 12:48 98.1 77 16 110/73 (85) 96 04/10/17 12:00 74 04/10/17 11:00 98.1 77 16 110/73 (85) 96 I/O 3/5/18 304/10/17 04/11/17 04/11/17 04/11/17 07:00 15:00 23:00 07:00 15:00 23:00 Intake Total 640 ml 720 ml Output Total 760 ml 750 ml Balance -120 ml -30 ml Intake Oral 640 ml 720 ml Output Urine Total 760 ml 750 ml # Voids 1 (Ivone Bianchi MD, R1) Result Diagram: 04/11/17 0506 04/11/17 0506 Objective Remarks GENERAL: This is a well-nourished, well-developed patient, laying bed in NAD. SKIN: No rashes. Cool and dry. Ecchymosis noted across the lower abdominal area and groin area, nontender to palpation. HEAD: Atraumatic. Normocephalic. EYES: No scleral icterus. No injection or drainage. ENT: Nose without bleeding, purulent drainage or septal hematoma. NECK: Trachea midline. No JVD. Supple, nontender, no meningeal signs. CARDIOVASCULAR: Regular rate and rhythm without murmurs, gallops, or rubs. RESPIRATORY: Clear to auscultation. No wheezes, rales, or rhonchi. GASTROINTESTINAL: Abdomen soft, non-tender, nondistended. No hepato-splenomegaly , or palpable masses. No guarding. MUSCULOSKELETAL: Extremities without clubbing, cyanosis, or edema. No joint tenderness, effusion, or edema noted. No calf tenderness. Negative Homans sign bilaterally. NEUROLOGICAL: AAOx3. Normal speech (Ivone Bianchi MD, R1) A/P Assessment and Plan Patient is a 66-year-old male past medical history of [place] 2 with prior h/o stent placement x4 and pacer-defibrillator placement presents to the ED with 1 day h/o of shortness of breath and chest pain in the setting of recent cardiac catheterization that was done on 04/06 due to [place]. SOB and CP are accompanied by dizziness, vomiting, diarrhea and weakness. Patient found to have elevated troponin of 2.86 in the ED. Admitted for further cardiac w/u. Plan for CABG procedure. (Ivone Bianchi MD, R1) Attending Attestation Patient seen at approximately 2:40 PM. I agree with the findings and the plan as noted above. Patient seen and examined. Case reviewed and discussed with the resident team. Agree with plan of care as discussed with me and documented in the resident note. (Inge Hansen MD) Problem List: (1) Shortness of breath ICD Codes: R06.02 - Shortness of breath Status: Acute Plan: Patient with 1 day h/o CP and SOB accompanied by dizziness, vomiting, diarrhea and weakness. SOB has improved and rest of sxs have resolved. -Patient stated shortness of breath has improved since being on oxygen. Currently with O2 saturations are 98% on 2 L nasal cannula. -Shortness of breath can be due to likely cardiac related, greatly improved this am. -CXR: No acute disease -Lower extremity ultrasound: Negative for pseudoaneurysm large hematoma on right groin. -Titrate oxygen as needed -See plan above. (2) Coronary artery disease ICD Codes: I25.10 - Atherosclerotic heart disease of [place] coronary artery without angina pectoris Status: Chronic Plan: Patient presented with 1 day h/o CP and SOB accompanied by dizziness, vomiting, diarrhea and weakness. SOB has improved and rest of sxs have resolved. Significant cardiac history of recent AR on 04/05/17 and cardiac cath on 04/06/17. On admission: Troponin x1 elevated to 2.86, CK-MB: 16.7 EKG: Sinus rhythm with occasional ventricular premature complexes, ST-T wave abnormalities and ST deviation Troponin up-trended 2.86-->4.53-->4.17 -patient placed on telemetry -Continue to monitor -Cardiology consultation, appreciate recommendations Continue with nitroglycerin as needed for pain relief Based on review of cardiac catheter films patient anticipated to benefit from coronary artery bypass graft surgery -Case discussed by Dr. Lott with Dr. Shanks, Cardiothoracic surgery consultation Monitor H&H, stable 8.6/24.6. Goal to keep hemoglobin greater than 8 due to cardiac history. Transfuse if Hbg less than 8. -c/w aspirin 325mg QD, atorvastatin 80mg HS -Nitro paste and subcutaneous heparin added -Medications on hold: Plavix, spironolactone, Altace -Avoid Plavix/Effient or Lovenox (3) Chronic pain ICD Codes: G89.29 - Other chronic pain Status: Chronic Plan: Continue with home dose of Oxycodone-Acetaminophen 10mg Q6h PRN (4) Alcohol use ICD Codes: Z78.9 - Other specified health status Status: Chronic Plan: Patient stated he drinks about 2 total glasses of bourbon and water daily CIWA score of 10 overnight, received ativan and developed sxs of hallucinations. No hallucination this am. continue to monitor -Patient placed on CIWA protocol (5) Nutrition, metabolism, and development symptoms ICD Codes: R63.8 - Other symptoms and signs concerning food and fluid intake Plan: Fluids: Not indicated at this time Electrolytes: Within normal limits, replete as needed Nutrition: Heart healthy DVT ppx: SCDs, heparin Q12h (Ivone Bianchi MD, R1) Ivone Bianchi MD, R1 Apr 11, 2017 10:34 Inge Hansen MD Apr 11, 2017 15:13
--- NOTE | 2017-04-11 11:15 | RADRPT ---
EXAM DATE/TIME: 04/11/2017 09:02 [facility] COMPARISON: No previous studies available for comparison. INDICATIONS : Pre op cardiac surgery. MEDICAL HISTORY : Blind. Myocardial infarction. Congestive heart failure. Hypercholesterolemia. Hyperlipidemia. Arthrit is. Osteoarthritis. Paresthesia. Benign prostatic hyperplasia. GERD. Dysuria. SURGICAL HISTORY : Bilateral cataracts. Cervical fusion. Cardiac surgery, AICD placed. Cardiac cath. Pacemaker. Orthoped ic surgery, lower discectomy. Left knee cartilage repair. Appendectomy. ENCOUNTER: Initial ACUITY: 1 day PAIN SCORE: 0/10 LOCATION: Bilateral legs. TECHNIQUE: Venous ultrasound of the left and right leg was performed from the inguinal ligament to the proximal calf. Real-time, color Doppler and spectral tracing, compression and augmentation techniques were us ed. FINDINGS: RIGHT LEG: There is normal compressibility of the deep venous system from the inguinal region to the proximal ca lf. No echogenic clot is seen in the lumen of the common femoral, femoral, popliteal, and posterior tibial veins. There is a normal response of the venous system to proximal and distal augmentation an d respiration. Redemonstration of a right groin hematoma measuring 10.6 x 1.6 cm. LEFT LEG: There is normal compressibility of the deep venous system from the inguinal region to the proximal ca lf. No echogenic clot is seen in the lumen of the common femoral, femoral, popliteal, and posterior tibial veins. There is a normal response of the venous system to proximal and distal augmentation an d respiration. CONCLUSION: 1. No sonographic evidence for lower extremity DVT. 2. Stable right groin hematoma. Joel Anderson MD on April 11, 2017 at 11:12 Board Certified Radiologist. This report was verified electronically.
--- NOTE | 2017-04-11 11:16 | RADRPT ---
EXAM DATE/TIME: 04/11/2017 09:13 [facility] COMPARISON: No previous studies available for comparison. INDICATIONS : Pre op cardiac surgery. MEDICAL HISTORY : Blind. Myocardial infarction. Congestive heart failure. Hypercholesterolemia. Hyperlipidemia. Arthrit is. Osteoarthritis. Paresthesia. Benign prostatic hyperplasia. GERD. Dysuria. SURGICAL HISTORY : Bilateral cataracts. Cervical fusion. Cardiac surgery, AICD placed. Cardiac cath. Pacemaker. Orthoped ic surgery, lower discectomy. Left knee cartilage repair. Appendectomy. ENCOUNTER: Initial ACUITY: 1 day PAIN SCORE: 0/10 LOCATION: Bilateral legs. GREATER SAPHENOUS VEIN THIGH: PROXIMAL: Right 6 mm Left 6 mm MID: Right 4 mm Left 6 mm DISTAL: Right 3 mm Left 5 mm CALF: PROXIMAL: Right 3 mm Left 4 mm MID: Right 2 mm Left 3 mm DISTAL: Right 2 mm Left 2 mm FINDINGS: The venous system of the lower extremities are patent by color Doppler imaging. Measurements of the leg veins (in mm) are listed above. CONCLUSION: 1. Lower extremity venous mapping, as above. Joel Anderson MD on April 11, 2017 at 11:14 Board Certified Radiologist. This report was verified electronically.
--- NOTE | 2017-04-11 11:19 | RADRPT ---
EXAM DATE/TIME: 04/11/2017 09:33 [facility] COMPARISON: No previous studies available for comparison. INDICATIONS : Pre op cardiac surgery. MEDICAL HISTORY : Blind. Myocardial infarction. Congestive heart failure. Hypercholesterolemia. Hyperlipidemia. Arthrit is. Osteoarthritis. Paresthesia. Benign prostatic hyperplasia. GERD. Dysuria. SURGICAL HISTORY : Bilateral cataracts. Cervical fusion. Cardiac surgery, AICD placed. Cardiac cath. Pacemaker. Orthoped ic surgery, lower discectomy. Left knee cartilage repair. Appendectomy. ENCOUNTER: Initial ACUITY: 1 day PAIN SCORE: 0/10 LOCATION: Bilateral neck PEAK SYSTOLIC VELOCITIES (cm/sec): ICA/CCA RATIO: Right: 1.8 Left: 0.9 ICA: Right: 157 Left: 108 CCA: Right: 88 Left: 119 ECA: Right: 112 Left: 153 VERTEBRAL: Right: 73 antegrade Left: 50 antegrade Elevated flow velocities and ICA/CCA ratios have been found to correlate with increased degrees of vessel stenosis, calculated as percentage of diameter relative to a normal segment of distal ICA/CCA FINDINGS: RIGHT CAROTID: Elevated peak systolic velocities of the proximal right ICA in the moderate stenosis range. Waveform is within normal limits. LEFT CAROTID: No significant stenosis is visualized. The waveforms are within normal limits. VERTEBRAL ARTERIES: Antegrade flow is seen in both vertebral arteries. MISCELLANEOUS: None. CONCLUSION: 1. Mild calcified plaque in the right internal carotid origin with resultant moderate, 50-69%, stenos is. This is likely in the lower part of this range. 2. No significant left carotid flow-limiting stenosis. 3. Antegrade vertebral artery flow bilaterally. Joel Anderson MD on April 11, 2017 at 11:14 Board Certified Radiologist. This report was verified electronically.
[2017-04-11 11:28] LABS: HEMATOCRIT 23.4 % (39.0-51.0); HEMOGLOBIN 8.2 GM/DL (13.0-17.0); MEAN CELL VOLUME 90.2 FL (80.0-100.0); MEAN CORPUSCULAR HEMOGLOBIN 31.5 PG (27.0-34.0); MEAN CORPUSCULAR HGB CONC 34.9 % (32.0-36.0); MEAN PLATELET VOLUME 7.3 FL (7.0-11.0); PLATELET COUNT 219 TH/MM3 (150-450); RED BLOOD COUNT 2.59 MIL/MM3 (4.50-5.90); RED CELL DISTRIBUTION WIDTH 14.3 % (11.6-17.2); WHITE BLOOD COUNT 7.6 TH/MM3 (4.0-11.0)
[2017-04-11] MEDS: SODIUM CHLORIDE 0.9% FLUSH 10 ML FLUSH IV FLUSH SCH ×2 (11:34→21:00)
[2017-04-11] MEDS: oxyCODONE/ACETAMINOPHEN 10 MG/325 MG TAB PO PRN (11:34)
[2017-04-11 13:00] LABS: BACTERIA, URINE FEW /hpf; BILIRUBIN, URINE NEG (NEG); BLOOD, URINE LARGE (NEG); GLUCOSE,URINE NEG (NEG); KETONE, URINE NEG (NEG); MUCUS URINE FEW /lpf (OCC); NITRITE,URINE NEG (NEG); SQUAMOUS EPITHELIAL CELL URINE <1 /hpf (0-5); TRANSITIONAL EPI CELLS, URINE <1 /hpf; URINE COLOR YELLOW (YELLW/STRAW); URINE LEUKOCYTE ESTERASE LARGE (NEG); WHITE BLOOD CELL CLUMPS RARE
--- NOTE | 2017-04-11 15:31 | ECHRPT ---
Indication: CARDIOMYOPATHY CONCLUSIONS Technically difficult study. In limited views, the left ventricular systolic function is mildly reduced with an estimated ejectio n fraction in the range of 45-50%. Trace mitral valve regurgitation. BP: / HR: Rhythm: Sinus MEASUREMENTS (Male / Female) Normal Values Technical Quality:Technically difficult study 2D ECHO LVOT Diameter 2.1 cm LV Ejection Fraction MOD 4C 50.9 % LV Ejection Fraction 4C AL 52.5 % M-MODE Aortic Root Diameter MM 2.9 cm LA Systolic Diameter MM 3.7 cm LA Ao Ratio MM 1.3 AV Cusp Separation MM 2.0 cm DOPPLER AV Peak Velocity 160.0 cm/s AV Peak Gradient 10.2 mmHg LVOT Peak Velocity 110.0 cm/s LVOT Peak Gradient 4.8 mmHg AV Area Cont Eq pk 2.4 cm MV Area PHT 3.2 cm Mitral E Point Velocity 79.5 cm/s Mitral A Point Velocity 80.0 cm/s Mitral E to A Ratio 1.0 LV E' Lateral Velocity 9.2 cm/s Mitral E to LV E' Lateral Ratio 8.7 LV E' Septal Velocity 4.3 cm/s Mitral E to LV E' Septal Ratio 18.5 PV Peak Velocity 122.0 cm/s PV Peak Gradient 6.0 mmHg FINDINGS LEFT VENTRICLE In limited views, the left ventricular systolic function is mildly reduced with an estimated ejectio n fraction in the range of 45-50%. Normal left ventricular size. Wall thickness is normal. There was limited left ventricular wall motion assessment due to poor endocardial visualization. RIGHT VENTRICLE The right ventricle was not well visualized. LEFT ATRIUM The left atrial size is normal. RIGHT ATRIUM The right atrium is not well visualized. ATRIAL SEPTUM Normal atrial septal thickness AORTA The aortic root and proximal ascending aorta are normal in size on limited imaging. MITRAL VALVE Grossly normal mitral valve. Trace mitral valve regurgitation. No mitral valve stenosis. AORTIC VALVE The aortic valve is not well visualized. No aortic valve stenosis or regurgitation. TRICUSPID VALVE Grossly normal tricuspid valve. No tricuspid valve stenosis or regurgitation. PULMONARY VALVE The pulmonary valve is not well visualized. VESSELS The inferior vena cava is normal in size. Salvador Cadet DO (Electronically Signed) Final Date:11 April 2017 15:30
--- NOTE | 2017-04-11 16:05 | PD.CAR.PN ---
CVT Progress Note Subjective/Hospital Course: pt seen and evaluated sts data discussed with pt and / full consult to follow RISK SCORES About the STS Risk Calculator Procedure: CAB Only Risk of Mortality: 1.027% Morbidity or Mortality: 12.132% Long Length of Stay: 4.287% Short Length of Stay: 51.303% Permanent Stroke: 0.943% Prolonged Ventilation: 9.437% DSW Infection: 0.419% Renal Failure: 1.372% Reoperation: 4.231% Objective: Vital Signs Date Time Temp Pulse Resp B/P (MAP) Pulse Ox O2 Delivery O2 Flow Rate FiO2 04/11/17 13:00 66 04/11/17 13:00 16 04/11/17 12:46 62 04/11/17 12:05 98 Nasal Cannula 2.00 04/11/17 12:00 62 04/11/17 11:00 69 04/11/17 11:00 98.9 66 16 121/73 (89) 97 04/11/17 11:00 62 04/11/17 10:00 64 04/11/17 09:30 98.3 63 16 124/70 (88) 98 04/11/17 09:00 64 04/11/17 07:00 64 04/11/17 07:00 72 04/11/17 06:00 66 04/11/17 05:00 67 04/11/17 04:00 68 04/11/17 03:00 76 04/11/17 03:00 98.9 76 18 104/65 (78) 98 04/11/17 02:00 75 04/11/17 01:00 77 04/11/17 00:00 75 04/10/17 23:00 82 04/10/17 23:00 76 16 127/81 (96) 97 04/10/17 22:00 79 04/10/17 21:00 80 04/10/17 20:00 84 04/10/17 20:00 100.2 84 20 117/71 (86) 99 04/10/17 18:13 18 04/10/17 18:10 75 18 117/68 (84) 100 04/10/17 18:00 76 04/10/17 17:49 78 20 116/69 (85) 100 04/10/17 17:00 74 04/10/17 16:49 98.7 69 16 121/70 (87 95 Labs: Laboratory Tests Test 04/11/17 05:06 04/11/17 10:09 04/11/17 10:20 04/11/17 11:00 White Blood Count 8.5 TH/MM3 (4.0-11.0) 7.6 TH/MM3 (4.0-11.0) Red Blood Count 2.73 MIL/MM3 (4.50-5.90) 2.59 MIL/MM3 (4.50-5.90) Hemoglobin 8.6 GM/DL (13.0-17.0) 8.2 GM/DL (13.0-17.0) Hematocrit 24.6 % (39.0-51.0) 23.4 % (39.0-51.0) Mean Corpuscular Volume 90.0 FL (80.0-100.0) 90.2 FL (80.0-100.0) Mean Corpuscular Hemoglobin 31.5 PG (27.0-34.0) 31.5 PG (27.0-34.0) Mean Corpuscular Hemoglobin Concent 35.1 % (32.0-36.0) 34.9 % (32.0-36.0) Red Cell Distribution Width 14.1 % (11.6-17.2) 14.3 % (11.6-17.2) Platelet Count 222 TH/MM3 (150-450) 219 TH/MM3 (150-450) Mean Platelet Volume 7.8 FL (7.0-11.0) 7.3 FL (7.0-11.0) Blood Urea Nitrogen 16 MG/DL (7-18) Creatinine 0.82 MG/DL (0.60-1.30) Random Glucose 92 MG/DL (74-106) Total Protein 5.4 GM/DL (6.4-8.2) Albumin 2.6 GM/DL (3.4-5.0) Calcium Level 7.9 MG/DL (8.5-10.1) Alkaline Phosphatase 56 U/L (45-117) Aspartate Amino Transf (AST/SGOT) 38 U/L (15-37) Alanine Aminotransferase (ALT/SGPT) 25 U/L (12-78) Total Bilirubin 0.9 MG/DL (0.2-1.0) Sodium Level 140 MEQ/L (136-145) Potassium Level 3.7 MEQ/L (3.5-5.1) Chloride Level 107 MEQ/L (98-107) Carbon Dioxide Level 27.7 MEQ/L (21.0-32.0) Anion Gap 5 MEQ/L (5-15) Estimat Glomerular Filtration Rate 95 ML/MIN (>89) Prothrombin Time 10.4 SEC (9.8-11.6) Prothromb Time International Ratio 1.0 RATIO Platelet Function P2Y12 React Units 291 PRU (194-418) Test 04/11/17 11:18 Urine Color YELLOW (YELLW/STRAW) Urine Turbidity HAZY (CLEAR) Urine pH 6.0 (5.0-8.5) Urine Specific [place] 1.024 (1.002-1.035) Urine Protein 100 mg/dL (NEG-TRACE) Urine Glucose (UA) NEG mg/dL (NEG) Urine Ketones NEG mg/dL (NEG) Urine Occult Blood LARGE (NEG) Urine Nitrite NEG (NEG) Urine Bilirubin NEG (NEG) Urine Urobilinogen LESS THAN 2.0 MG/DL (LESS Urine Leukocyte Esterase LARGE (NEG) Urine RBC /hpf (0-3) Urine WBC /hpf (0-5) Urine WBC Clumps RARE (NONE) Urine Squamous Epithelial Cells <1 /hpf (0-5) Urine Transitional Epithelial Cells <1 /hpf (NONE) Urine Bacteria FEW /hpf (NONE) Urine Mucus FEW /lpf (OCC) Microscopic Urinalysis Comment CULTURE INDICATED Result Diagram: 04/11/17 1100 04/11/17 0506 Mildred Sweeney Apr 11, 2017 16:05
[2017-04-11 16:16] LABS: HEMOGLOBIN A1C 5.3 % (4.3-6.0)
[2017-04-11] MEDS ORDERED: cefTRIAXone INJ 1,000 MG in SODIUM CHLORIDE 0.9% INJ 100 ML IV SCH (17:00)
[2017-04-11 20:07] LABS: HEMATOCRIT 27.2 % (39.0-51.0); HEMOGLOBIN 9.4 GM/DL (13.0-17.0)
[2017-04-11] MEDS: LATANOPROST 0.005% OPHT SOLN 2.5 ML BTL EACH EYE SCH (21:00)
[2017-04-11] MEDS: SODIUM CHLORIDE 5% OPHT SOLN 15 ML BTL EACH EYE SCH (21:00)
[2017-04-11] MEDS: ESCITALOPRAM OXALATE 20 MG TAB PO SCH (21:00)
[2017-04-11] MEDS: ATORVASTATIN 80 MG TAB PO SCH (21:16)
[2017-04-11] MEDS: DIGOXIN 0.125 MG TAB PO SCH (21:16)
[2017-04-12] VITALS (37 sets, daily range): BP systolic 100–130; BP diastolic 66–77; PULSE 62–81; RESP 14–20; TEMP 97.3–99.1; O2SAT 97–100
[2017-04-12 04:07] LABS: BASOPHIL % 0.4 % (0.0-2.0); EOSINOPHIL # 0.2 TH/MM3 (0-0.4); EOSINOPHIL % 2.1 % (0.0-4.0); HEMATOCRIT 25.4 % (39.0-51.0); HEMOGLOBIN 8.6 GM/DL (13.0-17.0); LYMPH % 19.5 % (9.0-44.0); LYMPHOCYTE # 1.7 TH/MM3 (1.0-4.8); MEAN CELL VOLUME 90.4 FL (80.0-100.0); MEAN CORPUSCULAR HEMOGLOBIN 30.7 PG (27.0-34.0); MONO % 10.5 % (0.0-8.0); MONOCYTE # 0.9 TH/MM3 (0-0.9); NEUT % 67.5 % (16.0-70.0); PLATELET COUNT 249 TH/MM3 (150-450); RED BLOOD COUNT 2.81 MIL/MM3 (4.50-5.90); RED CELL DISTRIBUTION WIDTH 14.2 % (11.6-17.2); WHITE BLOOD COUNT 8.9 TH/MM3 (4.0-11.0)
[2017-04-12 04:31] LABS: ALBUMIN 2.5 GM/DL (3.4-5.0); AST (GOT) 30 U/L (15-37); BICARBONATE 26.8 MEQ/L (21.0-32.0); BLOOD UREA NITROGEN 14 MG/DL (7-18); CALCIUM 7.9 MG/DL (8.5-10.1); CHLORIDE 107 MEQ/L (98-107); CREATININE 0.65 MG/DL (0.60-1.30); GLOMERULAR FILTRATION RATE 124 ML/MIN (>89); GLUCOSE,RANDOM 90 MG/DL (74-106); SODIUM (NA) 141 MEQ/L (136-145)
[2017-04-12 04:36] LABS: ALKALINE PHOSPHATASE 57 U/L (45-117); ALT (GPT) 24 U/L (12-78); TOTAL BILIRUBIN ADULT 0.8 MG/DL (0.2-1.0); TOTAL PROTEIN 5.7 GM/DL (6.4-8.2)
[2017-04-12] MEDS: NITROGLYCERIN 2% OINT 1 GM PACKET TOPICAL SCH ×3 (05:42→17:25)
[2017-04-12] MEDS: HEPARIN SODIUM - SQ 10,000 UNITS/ML VIAL SQ SCH ×3 (05:42→21:10)
[2017-04-12] MEDS: ISOSORBIDE MONONITRATE 60 MG CR TAB (IMDUR) PO SCH (06:29)
--- NOTE | 2017-04-12 08:03 | MB ---
cc: Samara Quinn MD DATE OF CONSULT: 04/10/2017 IDENTIFICATION: This is a 66-year-old male. PRIMARY CARE PHYSICIAN: Darian Harrell EGG TRAYER: Alfredo Lott HISTORY OF PRESENT ILLNESS: Patient known coronary artery disease, with prior stenting of the RCA and anterior wall in 2006. Presented with non-STEMI about 5 days ago, underwent cardiac catheterization that revealed borderline moderate to significant disease of the ostium of the circumflex, diffuse disease of the LAD and ostium of the RCA. He had significant tight posterolateral branch disease, receiving collaterals from the left system. Because of the diffuse disease, he was actually treated medically. He developed a large post catheter right groin hematoma. His hemoglobin actually went from 11 down to 8.9. He did not require blood transfusion at that time. He was then safely discharged home and presented back on this admission on 04/09 with having chest pain again, also nausea and vomiting, nonspecific ST changes in the EKG, elevated troponin. He had felt very weak at home. He did not, however, pass out. Apparently he did have significant ecchymosis to the right groin area from the right lower quadrant and around the flank area down to the mid thigh. There is significant ecchymosis to the symphysis pubis and the scrotal area. We were consulted by Dr. Lott to evaluate for coronary artery disease bypass grafting. Apparently the patient does have a daily cocktail and had some agitation last night. They gave him some Ativan and they placed him on fall precautions since he had a presyncopal episode at home. PAST MEDICAL HISTORY: Includes an anterior wall IN in 2006, recent non-STEMI, 04/06. His initial admission was April 05 and then readmission on 04/09. Non-STEMI segment, again with elevated troponins of 0.7. The patient's includes hypertension, hyperlipidemia, osteoarthritis, gastroesophageal reflux disease, obstructive sleep apnea, on CPAP, ischemic cardiomyopathy with ejection fraction of 35-40%, history of mild to moderate carotid disease, ETOH use. He is legally blind. He uses a walking cane. He has had a service dog up until February and he is to receive a new service dog soon. PAST SURGICAL HISTORY: Include cataract surgery, back surgery 1995, neck surgery 2004, fusion of the coccyx in 2016, pacer ICD in 2006, with a generator change out in 2013. ALLERGIES: HE HAS NO KNOWN ALLERGIES. MEDICATIONS AT HOME INCLUDE: Digoxin, aspirin, Plavix, Crestor, Imdur, metoprolol, ramipril, spironolactone, Lexapro, testosterone gel, latanoprost eye drops. FAMILY HISTORY: Mother with cancer. Father with an IN at age 39. SOCIAL HISTORY: The patient is . No children. Again, he is legally blind. He had 11 pack year history of smoking. He quit in 1981. He drinks 1 [place] daily. Prior to his recent admission, he was going to cardiac rehab. REVIEW OF SYSTEMS: GENERAL: The patient feeling very weak. No chills or fever. HEENT: He is legally blind. Uses a walking cane. RESPIRATORY: No shortness of breath. CARDIOVASCULAR: As above in the HPI. GASTROINTESTINAL: He had recent nausea. GENITOURINARY: He had some difficulty with urinating. They placed an external catheter on him overnight. MACHINE CLOTH EXAMINER: No history of TIA, CVA, seizure disorder. ENDOCRINE: No history of diabetes and/or hypothyroidism. PHYSICAL EXAMINATION: VITAL SIGNS: Blood pressure 120/70, heart rate 62, temperature max 98.9, O2 saturation 98% on 2 liters. GENERAL: The patient is awake, alert. HEENT: Normocephalic. Legally blind. CARDIOVASCULAR: Heart sounds, S1, S2. Regular rate and rhythm. No audible rubs noted. LUNGS: Diminished in the bases. Otherwise, clear to auscultation. ABDOMEN: Soft, nontender. EXTREMITIES: He has got a very large ecchymotic area diffuse form the right lower quadrant down to his right mid thigh. There was an ultrasound done which was negative for pseudo-aneurysm. There was a large 10 x 4 x 6 x 2.6 hematoma. Good distal pulses. NEUROLOGIC: A and O x 3. He is legally blind, again. STUDY: EKG shows sinus rhythm with some PACs, some PVCs. Diffuse nonspecific ST changes. Poor R-wave progression, unchanged. LABORATORY DATA: Shows hemoglobin 8.2, hematocrit 23, white cell count of 7.6, platelet count of 219. Sodium 140, potassium 3.7, BUN of 16, creatinine 0.82, AST 38, ALT 25. Troponin 4.53, INR 1.0. PRU is 291. Urinalysis shows large leukocyte esterase. Full culture pending. IMAGING: Carotid ultrasound shows some 50-69% stenosis in the right internal carotid. Will need followup post with Vascular Surgery. Repeat ultrasound of the right groin show a stabled right groin hematoma. No evidence of DVT. Chest x-ray was unremarkable. IMPRESSION AND PLAN: 1. This is a 66-year-old male, known history of coronary artery disease, history of myocardial infarction in the past, with recurrent readmission with a non-ST elevation myocardial infarction, recent heart catheterization, with postop right groin hematoma, with blood loss anemia, with hemoglobin from 11 down to 8.9, stabilized at this time. The ultrasound of the right groin is stable. The cardiac films have been evaluated by Dr. Gisel Shanks. 2. In the meantime, the patient is very weak. He had an episode last evening of questionable withdrawal. They put him on a Clinical [place] Withdrawal Assessment protocol. Did receive a dose of Ativan, which would be very cautioned with him being legally blind. 3. Questionable urinary tract infection, awaiting his cultures. We will start him on some currently Rocephin. 4. History of obstructive sleep apnea, on continuous positive airway pressure machine. 5. Ischemic cardiomyopathy with ejection fraction of 35%. 6. Mild to moderate carotid disease, 50-69% on the right. Timing of surgery as per Dr. Samara Quinn. Dictated by BRAD Brandon MD JABARI Kaufman/DOMINGA , 04:19 PM , 05:46 PM
[2017-04-12] MEDS: ASPIRIN 325 MG TAB PO SCH (08:34)
[2017-04-12] MEDS: METOPROLOL SUCCINATE 50 MG EXTENDED RELEASE TAB PO SCH (08:34)
[2017-04-12] MEDS: FERROUS SULFATE 325 MG (65 MG ELEMENTAL IRON) TAB PO SCH ×2 (08:35→20:50)
[2017-04-12] MEDS: CELECOXIB 200 MG CAP PO SCH ×2 (08:35→20:50)
[2017-04-12] MEDS: SODIUM CHLORIDE 0.9% FLUSH 10 ML FLUSH IV FLUSH SCH ×2 (08:35→20:50)
[2017-04-12] MEDS: FAMOTIDINE 20 MG TAB PO SCH (08:35)
[2017-04-12] MEDS: LIDOCAINE HCL 5% PATCH T-DERMAL SCH (08:36)
--- NOTE | 2017-04-12 09:53 | HHI.FPPN ---
Subjective Remarks Patient and examined this morning. No acute events overnight. Patient still complains of feeling fatigued. Denies any active chest pain,or nausea/ vomiting. Patient reports mild shortness of breath and dizziness when he exerts himself. Patient tolerating po intake well. (Ivone Bianchi MD, R1) Objective Vitals Vital Signs Date Time Temp Pulse Resp B/P (MAP) Pulse Ox O2 Delivery O2 Flow Rate FiO2 04/12/17 09:16 68 04/12/17 09:06 75 04/12/17 08:45 98.1 70 18 128/72 (90) 98 04/12/17 08:45 69 04/12/17 07:00 70 16 128/72 (90) 97 04/12/17 07:00 65 04/12/17 06:00 71 04/12/17 05:00 72 04/12/17 04:00 70 04/12/17 03:00 72 04/12/17 03:00 99.1 72 14 130/70 (90) 97 04/12/17 02:00 70 04/12/17 01:00 68 04/12/17 00:00 68 04/11/17 23:00 98.8 70 14 126/67 (86) 96 04/11/17 23:00 70 04/11/17 22:00 70 04/11/17 21:00 70 04/11/17 20:00 70 04/11/17 19:00 98.2 71 14 129/81 (97) 98 04/11/17 19:00 71 04/11/17 18:00 78 04/11/17 17:00 78 04/11/17 16:00 70 04/11/17 15:37 98.2 64 18 117/69 (85) 100 04/11/17 15:00 66 04/11/17 13:00 66 04/11/17 13:00 16 04/11/17 12:46 62 04/11/17 12:05 98 Nasal Cannula 2.00 04/11/17 12:00 62 04/11/17 11:00 69 04/11/17 11:00 98.9 66 16 121/73 (89) 97 04/11/17 11:00 62 04/11/17 10:00 64 I/O 3/6/18 3/07/2404/11/17 04/12/17 04/12/17 04/12/17 07:00 15:00 23:00 07:00 15:00 23:00 Intake Total 720 ml 440 ml 480 ml Output Total 750 ml 800 ml 500 ml Balance -30 ml -360 ml -20 ml Intake Oral 720 ml 340 ml 480 ml IV Total 100 ml Output Urine Total 750 ml 800 ml 500 ml (Iovne Bianchi MD, R1) Result Diagram: 04/12/1733004/12/17 033 Objective Remarks GENERAL: This is a well-nourished, well-developed patient, laying bed in NAD. SKIN: No rashes. Cool and dry. Ecchymosis noted across the lower abdominal area and groin area, nontender to palpation. HEAD: Atraumatic. Normocephalic. EYES: No scleral icterus. No injection or drainage. ENT: Nose without bleeding, purulent drainage or septal hematoma. NECK: Trachea midline. No JVD. Supple, nontender, no meningeal signs. CARDIOVASCULAR: Regular rate and rhythm without murmurs, gallops, or rubs. RESPIRATORY: Clear to auscultation. No wheezes, rales, or rhonchi. GASTROINTESTINAL: Abdomen soft, non-tender, nondistended. No hepato-splenomegaly , or palpable masses. No guarding. MUSCULOSKELETAL: Extremities without clubbing, cyanosis, or edema. No joint tenderness, effusion, or edema noted. No calf tenderness. Negative Homans sign bilaterally. NEUROLOGICAL: AAOx3. Normal speech (Ivone Bianchi MD, R1) A/P Assessment and Plan Patient is a 66-year-old male past medical history of FL 2 with prior h/o stent placement x4 and pacer-defibrillator placement presents to the ED with 1 day h/o of shortness of breath and chest pain in the setting of recent cardiac catheterization that was done on 04/06 due to FL. Admitted for further cardiac w/ u. Plan for CABG procedure. (Ivone Bianchi MD, R1) Attending Attestation Anticipate CABG on Monday. Patient seen and examined. Case reviewed and discussed with the resident team. Agree with plan of care as discussed with me and documented in the resident note. (Inge Hansen MD) Problem List: (1) Shortness of breath ICD Codes: R06.02 - Shortness of breath Status: Acute Plan: Patient with 1 day h/o CP and SOB accompanied by dizziness, vomiting, diarrhea and weakness. SOB has improved and rest of sxs have resolved. -Patient stated shortness of breath has improved since being on oxygen. Currently with O2 saturations are 98% on 2 L nasal cannula. -Shortness of breath can be due to likely cardiac related, greatly improved this am. -CXR: No acute disease -Lower extremity ultrasound: Negative for pseudoaneurysm large hematoma on right groin. -Titrate oxygen as needed -See plan above. (2) Coronary artery disease ICD Codes: I25.10 - Atherosclerotic heart disease of [place] coronary artery without angina pectoris Status: Chronic Plan: Patient presented with 1 day h/o CP and SOB accompanied by dizziness, vomiting, diarrhea and weakness. SOB has improved and rest of sxs have resolved. Significant cardiac history of recent FL on 04/05/17 and cardiac cath on 04/06/17. On admission: Troponin x1 elevated to 2.86, CK-MB: 16.7 EKG: Sinus rhythm with occasional ventricular premature complexes, ST-T wave abnormalities and ST deviation Troponin up-trended 2.86-->4.53-->4.17 -patient placed on telemetry -Continue to monitor -Cardiology consultation, appreciate recommendations Continue with nitroglycerin as needed for pain relief Based on review of cardiac catheter films patient anticipated to benefit from coronary artery bypass graft surgery -Case discussed by Dr. Lott with Dr. Shanks, Cardiothoracic surgery consultation Monitor H&H, stable 8.6/25.4. Goal to keep hemoglobin greater than 8 due to cardiac history. Transfuse if Hbg less than 8. -c/w aspirin 325mg QD, atorvastatin 80mg HS -Nitro paste and subcutaneous heparin added -Medications on hold: Plavix, spironolactone, Altace -Avoid Plavix/Effient or Lovenox (3) Chronic pain ICD Codes: G89.29 - Other chronic pain Status: Chronic Plan: Continue with home dose of Oxycodone-Acetaminophen 10mg Q6h PRN (4) Alcohol use ICD Codes: Z78.9 - Other specified health status Status: Chronic Plan: Patient stated he drinks about 2 total glasses of bourbon and water daily CIWA score of 10 overnight, received ativan and developed sxs of hallucinations. No hallucination this am. continue to monitor -Patient placed on CIWA protocol (5) UTI (urinary tract infection) ICD Codes: N39.0 - Urinary tract infection, site not specified Status: Acute Plan: Patient afebrile, asymptomatic, no leukocytosis. UA showed large leukocyte esterase, few urine bacteria, negative for ketones or urine WBC Patient started on Rocephin will follow-up urine cultures (6) Nutrition, metabolism, and development symptoms ICD Codes: R63.8 - Other symptoms and signs concerning food and fluid intake Plan: Fluids: Not indicated at this time Electrolytes: Within normal limits, replete as needed Nutrition: Heart healthy DVT ppx: SCDs, heparin Q12h (Ivone Bianchi MD, R1) Ivone Bianchi MD, R1 Apr 12, 2017 09:53 Inge Hansen MD Apr 12, 2017 14:56
--- NOTE | 2017-04-12 10:41 | EKG ---
Date Performed: 04/12/2017 Time Performed: 05:59:00 PTAGE: 66 years EKG: Sinus rhythm with borderline 1st degree A-V block Poor R wave progression - probable normal variant Extensive ST- T changes are nonspecific Borderline ECG NO PREVIOUS TRACING DOCTOR: Brennen Valverde Interpretating Date/Time 04/12/2017 10:41:32
[2017-04-12] MEDS ORDERED: POTASSIUM CHLORIDE 20 MEQ CONTROLLED RELEASE TAB PO ONE (11:00)
[2017-04-12] MEDS ORDERED: FUROSEMIDE 20 MG/2 ML VIAL IV PUSH ONE (11:00)
[2017-04-12] MEDS: oxyCODONE/ACETAMINOPHEN 10 MG/325 MG TAB PO PRN (14:03)
--- NOTE | 2017-04-12 15:04 | EKG ---
Date Performed: 04/11/2017 Time Performed: 06:41:46 PTAGE: 66 years EKG: Sinus rhythm with PVC(s) with borderline 1st degree A-V block Extensive ST-T changes are nonspecific Borderline E CG PREVIOUS TRACING : 04/10/2017 01.57 DOCTOR: Brennen Valverde Interpretating Date/Time 04/12/2017 15:04:14
--- NOTE | 2017-04-12 15:34 | PD.CAR.PN ---
CVT Progress Note Subjective/Hospital Course: 66/ male known coronary artery disease, with prior stenting of the RCA and anterior wall in 2006. Presented with non-STEMI about 5 days ago, underwent cardiac catheterization that revealed borderline moderate to significant disease of the ostium of the circumflex, diffuse disease of the LAD and ostium of the RCA. He had significant tight posterolateral branch disease, receiving collaterals from the left system. Because of the diffuse disease, he was actually treated medically. He developed a large post catheter right groin hematoma. His hemoglobin actually went from 11 down to 8.9. He did not require and presented back on this admission on 04/09 with having chest pain again, also nausea and vomiting, nonspecific ST changes in the EKG, elevated troponin. He had felt very weak at home. He did not, however, pass out. Apparently he did have significant ecchymosis to the right groin area from the right lower quadrant and around the flank area down to the mid thigh. There is significant ecchymosis to the symphysis pubis and the scrotal area. We were consulted by Dr. Lott to evaluate for coronary artery disease bypass grafting. Apparently the patient does have a daily cocktail and had some agitation last night. They gave him some Ativan and they placed him on fall precautions since he had a presyncopal episode at home. PAST MEDICAL HISTORY: Includes an anterior wall ID in 2006, recent non-STEMI, . His initial admission was April 05 and then readmission on 04/09. Non-STEMI segment, again with elevated troponins of 0.7. The patient's includes hypertension, hyperlipidemia, osteoarthritis, gastroesophageal reflux disease, obstructive sleep apnea, on CPAP, ischemic cardiomyopathy with ejection fraction of 35-40%, history of mild to moderate carotid disease, ETOH use. He is legally blind. He uses a walking cane. He has had a service dog up until February and he is to receive a new service dog soon. , back surgery 1995, neck surgery 2004, fusion of the coccyx in 2016, pacer ICD in 2006, with a generator change out in 2013. 04/12 pt doing well, PT working with pt, no chest pain ecchymosis right groin , scrotum , right flank unchanged, no hematoma no further agitation, pt states he drinks 2 oz cocktail at night , denies any tremors will transfuse with 2 units PRBC today surgery scheduled for Monday Objective: GENERAL: A&O x 3 SKIN: Warm and dry., ecchymosis right flank groin upper thigh and scrotum HEAD: Normocephalic. EYES: No scleral icterus. No injection or drainage. NECK: Supple, trachea midline. No JVD or lymphadenopathy. CARDIOVASCULAR: Regular rate and rhythm without murmurs, gallops, or rubs. RESPIRATORY: Breath sounds equal bilaterally. No accessory muscle use. GASTROINTESTINAL: Abdomen soft, non-tender, nondistended. MUSCULOSKELETAL: No cyanosis, or edema. BACK: Nontender without obvious deformity. No CVA tenderness. Vital Signs Date Time Temp Pulse Resp B/P (MAP) Pulse Ox O2 Delivery O2 Flow Rate FiO2 04/12/17 15:09 16 04/12/17 14:08 63 04/12/17 13:00 81 04/12/17 12:34 97.3 65 18 113/69 99 04/12/17 12:29 97.4 62 18 114/71 100 04/12/17 12:24 97.3 62 18 103/73 98 04/12/17 12:20 97.4 62 18 100/74 98 04/12/17 12:19 72 04/12/17 12:01 68 04/12/17 11:42 98.0 65 18 110/69 (83) 99 04/12/17 11:42 71 04/12/17 10:12 75 04/12/17 10:10 99 21 04/12/17 10:05 76 04/12/17 09:16 68 04/12/17 09:06 75 04/12/17 08:45 98.1 70 18 128/72 (90) 98 04/12/17 08:45 69 04/12/17 07:00 74 04/12/17 07:00 70 16 128/72 (90) 97 04/12/17 07:00 65 04/12/17 06:00 71 04/12/17 05:00 72 04/12/17 04:00 70 04/12/17 03:00 72 04/12/17 03:00 99.1 72 14 130/70 (90) 97 04/12/17 02:00 70 04/12/17 01:00 68 04/12/17 00:00 68 04/11/17 23:00 98.8 70 14 126/67 (86) 96 04/11/17 23:00 70 04/11/17 22:00 70 04/11/17 21:00 70 04/11/17 20:00 70 04/11/17 19:00 98.2 71 14 129/81 (97) 98 04/11/17 19:00 71 04/11/17 18:00 78 04/11/17 17:00 78 04/11/17 16:00 70 04/11/17 15:37 98.2 64 18 117/69 (85) 100 Labs: Laboratory Tests Test 04/12/17 03:31 White Blood Count 8.9 TH/MM3 (4.0-11.0) Red Blood Count 2.81 MIL/MM3 (4.50-5.90) Hemoglobin 8.6 GM/DL (13.0-17.0) Hematocrit 25.4 % (39.0-51.0) Mean Corpuscular Volume 90.4 FL (80.0-100.0) Mean Corpuscular Hemoglobin 30.7 PG (27.0-34.0) Mean Corpuscular Hemoglobin Concent 34.0 % (32.0-36.0) Red Cell Distribution Width 14.2 % (11.6-17.2) Platelet Count 249 TH/MM3 (150-450) Mean Platelet Volume 8.0 FL (7.0-11.0) Neutrophils (%) (Auto) 67.5 % (16.0-70.0) Lymphocytes (%) (Auto) 19.5 % (9.0-44.0) Monocytes (%) (Auto) 10.5 % (0.0-8.0) Eosinophils (%) (Auto) 2.1 % (0.0-4.0) Basophils (%) (Auto) 0.4 % (0.0-2.0) Neutrophils # (Auto) 6.0 TH/MM3 (1.8-7.7) Lymphocytes # (Auto) 1.7 TH/MM3 (1.0-4.8) Monocytes # (Auto) 0.9 TH/MM3 (0-0.9) Eosinophils # (Auto) 0.2 TH/MM3 (0-0.4) Basophils # (Auto) 0.0 TH/MM3 (0-0.2) CBC Comment DIFF FINAL Differential Comment Blood Urea Nitrogen 14 MG/DL (7-18) Creatinine 0.65 MG/DL (0.60-1.30) Random Glucose 90 MG/DL (74-106) Total Protein 5.7 GM/DL (6.4-8.2) Albumin 2.5 GM/DL (3.4-5.0) Calcium Level 7.9 MG/DL (8.5-10.1) Alkaline Phosphatase 57 U/L (45-117) Aspartate Amino Transf (AST/SGOT) 30 U/L (15-37) Alanine Aminotransferase (ALT/SGPT) 24 U/L (12-78) Total Bilirubin 0.8 MG/DL (0.2-1.0) Sodium Level 141 MEQ/L (136-145) Potassium Level 3.8 MEQ/L (3.5-5.1) Chloride Level 107 MEQ/L (98-107) Carbon Dioxide Level 26.8 MEQ/L (21.0-32.0) Anion Gap 7 MEQ/L (5-15) Estimat Glomerular Filtration Rate 124 ML/MIN (>89) Troponin I 0.90 NG/ML (0.02-0.05) Result Diagram: 04/12/17 0331 04/12/17 0331 Telemetry: NSR (1) Blood loss anemia Plan: for 2 units PRBC today (2) right groin hematoma Plan: stable (3) NSTEMI (non-ST elevated myocardial infarction) (4) Coronary artery disease Plan: on heparin sq, ASA for surgery on Monday (5) UTI (urinary tract infection) Plan: GNR / on rocephin/ change to levaquin / enteroccus (6) Legally blind Plan: fall precautions Mildred Sweeney Apr 12, 2017 15:34
[2017-04-12] MEDS ORDERED: LEVOFLOXACIN 750 MG PREMIX INJ 150 ML IV SCH (17:00)
[2017-04-12] MEDS: ESCITALOPRAM OXALATE 20 MG TAB PO SCH (20:50)
[2017-04-12] MEDS: DIGOXIN 0.125 MG TAB PO SCH (20:50)
[2017-04-12] MEDS: ATORVASTATIN 80 MG TAB PO SCH (20:50)
[2017-04-12] MEDS: LATANOPROST 0.005% OPHT SOLN 2.5 ML BTL EACH EYE SCH (20:50)
[2017-04-12] MEDS: SODIUM CHLORIDE 5% OPHT SOLN 15 ML BTL EACH EYE SCH (20:50)
[2017-04-13] VITALS (31 sets, daily range): BP systolic 105–132; BP diastolic 58–73; PULSE 59–69; RESP 14–20; TEMP 98–99.1; O2SAT 96–99
[2017-04-13] MEDS: TEMAZEPAM 7.5 MG CAP PO PRN ×2 (00:13→21:20)
[2017-04-13] MEDS: NITROGLYCERIN 2% OINT 1 GM PACKET TOPICAL SCH ×5 (00:13→23:29)
[2017-04-13 04:14] LABS: AUTOMATED NEUTROPHIL # 5.4 TH/MM3 (1.8-7.7); BASOPHIL % 0.2 % (0.0-2.0); EOSINOPHIL # 0.3 TH/MM3 (0-0.4); HEMATOCRIT 30.1 % (39.0-51.0); HEMOGLOBIN 10.6 GM/DL (13.0-17.0); LYMPH % 25.1 % (9.0-44.0); LYMPHOCYTE # 2.2 TH/MM3 (1.0-4.8); MEAN CELL VOLUME 88.3 FL (80.0-100.0); MEAN CORPUSCULAR HEMOGLOBIN 31.1 PG (27.0-34.0); MEAN CORPUSCULAR HGB CONC 35.2 % (32.0-36.0); MEAN PLATELET VOLUME 7.6 FL (7.0-11.0); MONO % 10.5 % (0.0-8.0); MONOCYTE # 0.9 TH/MM3 (0-0.9); NEUT % 61.2 % (16.0-70.0); PLATELET COUNT 272 TH/MM3 (150-450); RED CELL DISTRIBUTION WIDTH 14.3 % (11.6-17.2); WHITE BLOOD COUNT 8.7 TH/MM3 (4.0-11.0)
[2017-04-13 04:41] LABS: BICARBONATE 28.2 MEQ/L (21.0-32.0); CALCIUM 8.3 MG/DL (8.5-10.1); CREATININE 0.75 MG/DL (0.60-1.30)
[2017-04-13] MEDS: ISOSORBIDE MONONITRATE 60 MG CR TAB (IMDUR) PO SCH (06:18)
[2017-04-13] MEDS: HEPARIN SODIUM - SQ 10,000 UNITS/ML VIAL SQ SCH ×3 (06:18→21:20)
[2017-04-13] MEDS: LIDOCAINE HCL 5% PATCH T-DERMAL SCH (09:00)
[2017-04-13] MEDS: CELECOXIB 200 MG CAP PO SCH ×2 (09:33→21:20)
[2017-04-13] MEDS: ASPIRIN EC 81 MG TABEC PO SCH (09:33)
[2017-04-13] MEDS: METOPROLOL SUCCINATE 50 MG EXTENDED RELEASE TAB PO SCH (09:33)
[2017-04-13] MEDS: FERROUS SULFATE 325 MG (65 MG ELEMENTAL IRON) TAB PO SCH ×2 (09:33→21:20)
[2017-04-13] MEDS: FAMOTIDINE 20 MG TAB PO SCH (09:33)
[2017-04-13] MEDS: SODIUM CHLORIDE 0.9% FLUSH 10 ML FLUSH IV FLUSH SCH ×2 (09:34→21:19)
--- NOTE | 2017-04-13 09:36 | PQ ---
Physician Query Response Document PATIENT: IVY JIN : 1950 ADMIT DATE: 04/09/2017 3:56 PM DISCH DATE: RESPONDING PROVIDER #: Matthew QUERY TEXT: Anemia Type Acute blood loss anemia in the setting of large post catheter right groin hematoma treated with seria l H/H and order for PRBC transfusion Other explanation of clinical findings. Unable to determine (no explanation for clinical findings). The patient's Clinical Indicators include: The medical record reflects the following clinical findings, treatment, and risk factors. * Clinical Indicators HGB 9.8 > 8.2, significant ecchymosis to the right groin area from the right lower quadrant and around the flank area down to the mid thigh, with blood loss anemia * Risk Factors: large post catheter right groin hematoma. * Treatment: serial H/H, order for PRBC Please clarify and document your clinical opinion in the progress notes and discharge summary includi ng the definitive and/or presumptive diagnosis (suspected or probable), related to the above clinical findings. Please include clinical findings supporting your diagnosis. Thank you, Nereida Montgomery CDS: Nereida Montgomery Contact Number: [phone] Query created by: Nereida Montgomery on 04/12/2017 4:17 PM RESPONSE TEXT: On admission, pt found to have large ecchymoses and swelling in the suprapubic area, bilateral groin areas, associated with decreased Hb. Pt. Was symptomatic with fatigue and weakness and thus was trans fused with prbc. No longer symptomatic. Electronically signed by: Inge Hansen MD 04/13/2017 9:32 AM
--- NOTE | 2017-04-13 10:01 | HHI.FPPN ---
Subjective Remarks Patient seen and examined at bedside. No acute events overnight. Patients stated he feels well, does not feel as fatigued since receiving the 2 units of blood transfusion yesterday. Denies SOB, CP, N/V or abdominal pain. Pt is tolerating po intake well. No other concerns. (Ivone Bianchi MD, R1) Objective Vitals Vital Signs Date Time Temp Pulse Resp B/P (MAP) Pulse Ox O2 Delivery O2 Flow Rate FiO2 04/13/17 09:25 98.5 62 14 105/65 (78) 99 04/13/17 07:35 59 04/13/17 06:32 68 04/13/17 05:22 62 04/13/17 04:21 64 04/13/17 03:15 98.0 59 18 113/58 (76) 98 04/13/17 03:12 65 04/13/17 02:27 60 04/13/17 01:11 64 04/13/17 00:00 59 04/12/17 23:10 98.3 69 19 125/71 (89) 98 04/12/17 23:10 65 04/12/17 22:00 67 04/12/17 21:00 64 04/12/17 20:00 66 04/12/17 19:50 66 04/12/17 19:00 98.4 65 20 128/74 (92) 98 04/12/17 18:31 98.0 72 18 121/77 99 04/12/17 18:10 66 04/12/17 17:33 99 21 04/12/17 17:13 65 04/12/17 17:00 97.6 65 18 108/66 99 04/12/17 16:16 98.4 66 18 116/67 100 04/12/17 16:07 67 04/12/17 15:33 67 04/12/17 15:33 98.4 67 16 108/68 (81) 98 04/12/17 15:09 16 04/12/17 14:08 63 04/12/17 13:00 81 04/12/17 12:34 97.3 65 18 113/69 99 04/12/17 12:29 97.4 62 18 114/71 100 04/12/17 12:24 97.3 62 18 103/73 98 04/12/17 12:20 97.4 62 18 100/74 98 04/12/17 12:19 72 04/12/17 12:01 68 04/12/17 11:42 98.0 65 18 110/69 (83) 99 04/12/17 11:42 71 04/12/17 10:12 75 04/12/17 10:10 99 21 04/12/17 10:05 76 I/O 04/12/17 04/12/17 04/12/17 04/13/17 04/13/17 04/13/17 07:00 15:00 23:00 07:00 15:00 23:00 Intake Total 480 ml 420 ml 1000 ml 940 ml Output Total 500 ml 850 ml 400 ml Balance -20 ml 420 ml 150 ml 540 ml Intake Oral 480 ml 580 ml 940 ml Packed Cells 400 ml 400 ml Blood Product IV Normal Saline Flush 20 ml 20 ml Output Urine Total 500 ml 850 ml 400 ml # Voids 1 # Bowel Movements 1 (Ivone Bianchi MD, R1) Result Diagram: 04/13/17 0325 04/13/17 0325 Objective Remarks GENERAL: This is a well-nourished, well-developed patient, laying bed in NAD. SKIN: No rashes. Cool and dry. Ecchymosis noted across the lower abdominal area and groin area, nontender to palpation, stable. HEAD: Atraumatic. Normocephalic. EYES: No scleral icterus. No injection or drainage. ENT: Nose without bleeding, purulent drainage or septal hematoma. NECK: Trachea midline. No JVD. Supple, nontender, no meningeal signs. CARDIOVASCULAR: Regular rate and rhythm without murmurs, gallops, or rubs. RESPIRATORY: Clear to auscultation. No wheezes, rales, or rhonchi. GASTROINTESTINAL: Abdomen soft, non-tender, nondistended. No hepato-splenomegaly , or palpable masses. No guarding. MUSCULOSKELETAL: Extremities without clubbing, cyanosis, or edema. No joint tenderness, effusion, or edema noted. No calf tenderness. Negative Homans sign bilaterally. NEUROLOGICAL: AAOx3. Normal speech (Ivone Bianchi MD, R1) A/P Assessment and Plan Patient is a 66-year-old male past medical history of CO 2 with prior h/o stent placement x4 and pacer-defibrillator placement presents to the ED with 1 day h/o of shortness of breath and chest pain in the setting of recent cardiac catheterization that was done on 04/06 due to CO. Admitted for further cardiac w/ u. Plan for CABG procedure. (Ivone Bianchi MD, R1) Attending Attestation Patient seen and examined and approximately 10:20 AM today. is with the patient. I discussed his progress with his nurse, who reports that he had a much better night sleep after Restoril. Patient reports having had hallucination type symptoms after being given Ativan previously. He is much less fatigued, has been ambulating around the nurse's desk, sitting up in the chair this morning in no distress. The ecchymosis of the groin area persists but is resolving gradually, he still has one firm area on the upper right thigh. Plan is for CABG on Monday. He is to continue to ambulate and reported no chest pain with ambulation today. Patient seen and examined. Case reviewed and discussed with the resident team. Agree with plan of care as discussed with me and documented in the resident note. (Inge Hansen MD) Problem List: (1) Shortness of breath ICD Codes: R06.02 - Shortness of breath Status: Resolved Plan: Patient with 1 day h/o CP and SOB accompanied by dizziness, vomiting, diarrhea and weakness. sxs have resolved. -Patient stated shortness of breath has improved since being on oxygen. Currently with O2 saturations are 98% on RA -Shortness of breath can be due to likely cardiac related -CXR: No acute disease -Lower extremity ultrasound: Negative for pseudoaneurysm large hematoma on right groin. -Titrate oxygen as needed -See plan above. (2) Coronary artery disease ICD Codes: I25.10 - Atherosclerotic heart disease of tribal coronary artery without angina pectoris Status: Chronic Plan: Patient presented with 1 day h/o CP and SOB accompanied by dizziness, vomiting, diarrhea and weakness. sxs have resolved. Significant cardiac history of recent CO on 04/05/17 and cardiac cath on 04/06/17. On admission: Troponin x1 elevated to 2.86, CK-MB: 16.7 EKG: Sinus rhythm with occasional ventricular premature complexes, ST-T wave abnormalities and ST deviation Troponin up-trended 2.86-->4.53-->4.17 -patient placed on telemetry -Continue to monitor -Cardiology consultation, appreciate recommendations Continue with nitroglycerin as needed for pain relief Based on review of cardiac catheter films patient anticipated to benefit from coronary artery bypass graft surgery -Case discussed by Dr. Lott with Dr. Shanks, Cardiothoracic surgery consultation Monitor H&H, .08/05. Goal to keep hemoglobin greater than 8 due to cardiac history. Transfuse if Hbg less than 8. -s/p transfusion of 2 units PRBCs with appropriate response -c/w aspirin 325mg QD, atorvastatin 80mg HS -Nitro paste and subcutaneous heparin added -Medications on hold: Plavix, spironolactone, Altace -Avoid Plavix/Effient or Lovenox (3) Chronic pain ICD Codes: G89.29 - Other chronic pain Status: Chronic Plan: Continue with home dose of Oxycodone-Acetaminophen 10mg Q6h PRN (4) Alcohol use ICD Codes: Z78.9 - Other specified health status Status: Chronic Plan: Patient stated he drinks about 2 total glasses of bourbon and water daily CIWA score of 10 on 04/11, received ativan and developed sxs of hallucinations. No hallucination this am. Latest CIWA score 0, no issues overnight. continue to monitor -Patient placed on CIWA protocol (5) UTI (urinary tract infection) ICD Codes: N39.0 - Urinary tract infection, site not specified Status: Acute Plan: Patient afebrile, asymptomatic, no leukocytosis. UA showed large leukocyte esterase, few urine bacteria, negative for ketones or urine WBC urine culture: positive for enterococcus patient switched to levofloxacin Q24h IV (6) Nutrition, metabolism, and development symptoms ICD Codes: R63.8 - Other symptoms and signs concerning food and fluid intake Plan: Fluids: Not indicated at this time Electrolytes: Within normal limits, replete as needed Nutrition: Heart healthy DVT ppx: SCDs, heparin Q12h (Ivone Bianchi MD, R1) Ivone Bianchi MD, R1 Apr 13, 2017 10:01 Inge Hansen MD Apr 13, 2017 10:40
[2017-04-13] MEDS: oxyCODONE/ACETAMINOPHEN 10 MG/325 MG TAB PO PRN (12:41)
--- NOTE | 2017-04-13 13:20 | EKG ---
Date Performed: 04/10/2017 Time Performed: 01:57:02 PTAGE: 66 years EKG: Sinus rhythm with PVC(s) with borderline 1st degree A-V block Poor R wave progression - probable normal variant E xtensive ST-T changes are nonspecific Borderline ECG PREVIOUS TRACING : 04/09/2017 18.29 Since the prior tracing, there has been no significant crowe DOCTOR: Solo Dodd Interpretating Date/Time 04/13/2017 13:19:00
--- NOTE | 2017-04-13 13:20 | EKG ---
Date Performed: 04/09/2017 Time Performed: 18:29:18 PTAGE: 66 years EKG: Sinus rhythm with PAC(s) Poor R wave progression - probable normal variant Extensive ST-T changes may be due to m yocardial ischemia Abnormal ECG Since the prior tracing, there has been no significant change DOCTOR: Solo Dodd Interpretating Date/Time 04/13/2017 13:19:10
--- NOTE | 2017-04-13 13:21 | EKG ---
Date Performed: 04/09/2017 Time Performed: 13:27:48 PTAGE: 66 years EKG: Sinus rhythm WITH OCCASIONAL VENTRICULAR PREMATURE COMPLEXES WITH OCCASIONAL SUPRAVENTRICULAR PREMATURE COMPLEXES ST DEVIATION AND MODERATE T-WAVE ABNORMALITY, CONSIDER ANTEROLATERAL ISCHEMIA ABNORMAL ECG PREVIOUS TRACING : 04/06/2017 10.19 Since the prior tracing, there has been no significant crowe DOCTOR: Solo Dodd Interpretating Date/Time 04/13/2017 13:19:20
--- NOTE | 2017-04-13 16:43 | PD.CAR.PN ---
CVT Progress Note Subjective/Hospital Course: 66/ male known coronary artery disease, with prior stenting of the RCA and anterior wall in 2006. Presented with non-STEMI about 5 days ago, underwent cardiac catheterization that revealed borderline moderate to significant disease of the ostium of the circumflex, diffuse disease of the LAD and ostium of the RCA. He had significant tight posterolateral branch disease, receiving collaterals from the left system. Because of the diffuse disease, he was actually treated medically. He developed a large post catheter right groin hematoma. His hemoglobin actually went from 11 down to 8.9. He did not require and presented back on this admission on 04/09 with having chest pain again, also nausea and vomiting, nonspecific ST changes in the EKG, elevated troponin. He had felt very weak at home. He did not, however, pass out. Apparently he did have significant ecchymosis to the right groin area from the right lower quadrant and around the flank area down to the mid thigh. There is significant ecchymosis to the symphysis pubis and the scrotal area. We were consulted by Dr. Lott to evaluate for coronary artery disease bypass grafting. Apparently the patient does have a daily cocktail and had some agitation last night. They gave him some Ativan and they placed him on fall precautions since he had a presyncopal episode at home. PAST MEDICAL HISTORY: Includes an anterior wall [place] in 2006, recent non-STEMI, . His initial admission was April 05 and then readmission on 04/09. Non-STEMI segment, again with elevated troponins of 0.7. The patient's includes hypertension, hyperlipidemia, osteoarthritis, gastroesophageal reflux disease, obstructive sleep apnea, on CPAP, ischemic cardiomyopathy with ejection fraction of 35-40%, history of mild to moderate carotid disease, ETOH use. He is legally blind. He uses a walking cane. He has had a service dog up until February and he is to receive a new service dog soon. , back surgery 1995, neck surgery 2004, fusion of the coccyx in 2016, pacer ICD in 2006, with a generator change out in 2013. 04/12 pt doing well, PT working with pt, no chest pain ecchymosis right groin , scrotum , right flank unchanged, no hematoma no further agitation, pt states he drinks 2 oz cocktail at night , denies any tremors will transfuse with 2 units PRBC today surgery scheduled for Thursday 04/13 HGB improved 10.6 on room air feels better for surgery on monday Objective: GENERAL: SKIN: Warm and dry. large ecchymotic area right thigh and groin HEAD: Normocephalic. EYES: No scleral icterus. No injection or drainage. NECK: Supple, trachea midline. No JVD or lymphadenopathy. CARDIOVASCULAR: Regular rate and rhythm without murmurs, gallops, or rubs. RESPIRATORY: Breath sounds equal bilaterally. No accessory muscle use. GASTROINTESTINAL: Abdomen soft, non-tender, nondistended. MUSCULOSKELETAL: No cyanosis, or edema. BACK: Nontender without obvious deformity. No CVA tenderness. Vital Signs Date Time Temp Pulse Resp B/P (MAP) Pulse Ox O2 Delivery O2 Flow Rate FiO2 04/13/17 16:21 61 04/13/17 13:31 14 04/13/17 13:00 66 04/13/17 12:27 98.5 66 14 122/72 (89) 99 04/13/17 12:00 66 04/13/17 11:46 69 04/13/17 11:00 66 04/13/17 10:00 62 04/13/17 09:49 98 04/13/17 09:25 98.5 62 14 105/65 (78) 99 04/13/17 09:00 62 04/13/17 08:00 60 04/13/17 07:35 59 04/13/17 06:32 68 04/13/17 05:22 62 04/13/17 04:21 64 04/13/17 03:15 98.0 59 18 113/58 (76) 98 04/13/17 03:12 65 04/13/17 02:27 60 04/13/17 01:11 64 04/13/17 00:00 59 04/12/17 23:10 98.3 69 19 125/71 (89) 98 04/12/17 23:10 65 04/12/17 22:00 67 04/12/17 21:00 64 04/12/17 20:00 66 04/12/17 19:50 66 04/12/17 19:00 98.4 65 20 128/74 (92) 98 04/12/17 18:31 98.0 72 18 121/77 99 04/12/17 18:10 66 04/12/17 17:33 99 21 04/12/17 17:13 65 04/12/17 17:00 97.6 65 18 108/66 99 Result Diagram: 04/13/17 0325 04/13/17 0325 (1) Blood loss anemia Plan: s/p 2 units PRBC (2) right groin hematoma Plan: stable (3) NSTEMI (non-ST elevated myocardial infarction) (4) Coronary artery disease Plan: on heparin sq, ASA for surgery on Monday (5) UTI (urinary tract infection) Plan: GNR / change to cipro IV (6) Legally blind Plan: fall precautions Mildred Sweeney Apr 13, 2017 16:43
[2017-04-13] MEDS: CIPROFLOXACIN 400 MG PREMIX 200 ML IV SCH (19:27)
[2017-04-13] MEDS: SODIUM CHLORIDE 5% OPHT SOLN 15 ML BTL EACH EYE SCH (21:00)
[2017-04-13] MEDS: LATANOPROST 0.005% OPHT SOLN 2.5 ML BTL EACH EYE SCH (21:19)
[2017-04-13] MEDS: DIGOXIN 0.125 MG TAB PO SCH (21:20)
[2017-04-13] MEDS: ATORVASTATIN 80 MG TAB PO SCH (21:20)
[2017-04-13] MEDS: ESCITALOPRAM OXALATE 20 MG TAB PO SCH (21:20)
[2017-04-14] VITALS (27 sets, daily range): BP systolic 107–144; BP diastolic 71–84; PULSE 52–82; RESP 14–19; TEMP 98–99; O2SAT 96–99
[2017-04-14] MEDS: NITROGLYCERIN 2% OINT 1 GM PACKET TOPICAL SCH ×4 (05:48→23:49)
[2017-04-14] MEDS: HEPARIN SODIUM - SQ 10,000 UNITS/ML VIAL SQ SCH ×3 (05:48→21:11)
[2017-04-14] MEDS: ISOSORBIDE MONONITRATE 60 MG CR TAB (IMDUR) PO SCH (05:48)
[2017-04-14] MEDS: METOPROLOL SUCCINATE 50 MG EXTENDED RELEASE TAB PO SCH (09:00)
[2017-04-14] MEDS: LIDOCAINE HCL 5% PATCH T-DERMAL SCH (09:00)
[2017-04-14] MEDS: SODIUM CHLORIDE 0.9% FLUSH 10 ML FLUSH IV FLUSH SCH ×2 (09:20→21:12)
[2017-04-14] MEDS: CIPROFLOXACIN 400 MG PREMIX 200 ML IV SCH ×2 (09:20→19:44)
[2017-04-14] MEDS: CELECOXIB 200 MG CAP PO SCH ×2 (09:21→21:10)
[2017-04-14] MEDS: FAMOTIDINE 20 MG TAB PO SCH (09:21)
[2017-04-14] MEDS: FERROUS SULFATE 325 MG (65 MG ELEMENTAL IRON) TAB PO SCH ×2 (09:21→16:01)
[2017-04-14] MEDS: ASPIRIN EC 81 MG TABEC PO SCH (09:21)
[2017-04-14] MEDS: ALPRAZolam 0.25 MG TAB PO SCH ×2 (11:44→21:11)
--- NOTE | 2017-04-14 11:53 | HHI.FPPN ---
Subjective Remarks Patient seen and examined this morning. Afebrile vital signs stable. Overnight he had some episodes of bradycardia into the 50s. Cardiology evaluated and adjusted his metoprolol accordingly. Plan is still for CABG surgery on 04/17/17. Patient is nervous sitting waiting and thinking about this procedure and what it entails. Discussed options with patient and he agrees to a short trial of Xanax to help with his anxiety. (Antonio Rosales MD, R3) Objective Vitals Vital Signs Date Time Temp Pulse Resp B/P (MAP) Pulse Ox O2 Delivery O2 Flow Rate FiO2 04/14/17 09:42 96 21 04/14/17 08:18 98.0 62 14 112/72 (85) 99 04/14/17 07:18 75 04/14/17 06:40 53 04/14/17 05:57 56 04/14/17 04:26 58 04/14/17 03:40 98.0 58 19 144/74 (97) 99 04/14/17 03:34 55 04/14/17 02:16 52 04/14/17 01:31 56 04/14/17 00:10 53 04/13/17 23:40 98.1 61 18 105/64 (78) 96 04/13/17 23:40 61 04/13/17 22:13 62 04/13/17 21:00 62 04/13/17 20:05 99 04/13/17 20:00 63 04/13/17 19:00 64 04/13/17 19:00 98.0 62 20 119/68 (85) 98 04/13/17 18:16 62 04/13/17 17:14 64 04/13/17 17:00 99.1 62 14 132/73 (92) 98 04/13/17 16:21 61 04/13/17 15:00 66 04/13/17 14:00 62 04/13/17 13:31 14 04/13/17 13:00 66 04/13/17 12:27 98.5 66 14 122/72 (89) 99 04/13/17 12:00 66 I/O 04/13/17 04/13/17 04/13/17 04/14/17 04/14/17 04/14/17 07:00 15:00 23:00 07:00 15:00 23:00 Intake Total 940 ml 480 ml Output Total 400 ml 825 ml 925 ml Balance 540 ml -825 ml -445 ml Intake Oral 940 ml 480 ml Output Urine Total 400 ml 825 ml 925 ml # Voids 1 # Bowel Movements 0 (Antonio Rosales MD, R3) Result Diagram: 04/13/17 0325 04/13/17 0325 Imaging Last Impressions Lower Extremity Ultrasound 04/11/17 0000 Signed Impressions: Service Date/Time: Tuesday, April 11, 2017 09:13 - CONCLUSION: 1. Lower extremity venous mapping, as above. Joel Anderson MD Carotid Artery Ultrasound 04/11/17 0000 Signed Impressions: Service Date/Time: Tuesday, April 11, 2017 09:33 - CONCLUSION: 1. Mild calcified plaque in the right internal carotid origin with resultant moderate, 50-69%%, stenosis. This is likely in the lower part of this range. 2. No significant left carotid flow-limiting stenosis. 3. Antegrade vertebral artery flow bilaterally. Joel Anderson MD Chest X-Ray 04/09/17 1331 Signed Impressions: Service Date/Time: Sunday, April 09, 2017 14:13 - CONCLUSION: No acute disease. Jason Hager MD Objective Remarks GENERAL: This is a well-nourished, well-developed patient, laying bed in NAD. SKIN: No rashes. Cool and dry. Ecchymosis noted across the lower abdominal area and groin area, nontender to palpation, stable. HEAD: Atraumatic. Normocephalic. EYES: No scleral icterus. No injection or drainage. ENT: Nose without bleeding, purulent drainage or septal hematoma. NECK: Trachea midline. No JVD. Supple, nontender, no meningeal signs. CARDIOVASCULAR: Regular rate and rhythm without murmurs, gallops, or rubs. RESPIRATORY: Clear to auscultation. No wheezes, rales, or rhonchi. GASTROINTESTINAL: Abdomen soft, non-tender, nondistended. No hepato-splenomegaly , or palpable masses. No guarding. MUSCULOSKELETAL: Extremities without clubbing, cyanosis, or edema. No joint tenderness, effusion, or edema noted. No calf tenderness. Negative Homans sign bilaterally. NEUROLOGICAL: AAOx3. Normal speech Medications and IVs Current Medications Medications (Trade) Dose Ordered Sig/[place] Route Start Time Stop Time Status Last Admin (Tylenol) 650 mg Q4H PRN PO 04/09/17 16:45 (Zofran Inj) 4 mg Q6H PRN IVP 04/09/17 16:45 04/09/17 18:37 (Narcan Inj) 0.4 mg UNSCH PRN IV PUSH 04/09/17 16:45 (Milk Of Magnesia Liq) 30 ml Q12H PRN PO 04/09/17 16:45 04/11/17 11:42 (Senokot) 17.2 mg Q12H PRN PO 04/09/17 16:45 (Dulcolax Supp) 10 mg DAILY PRN RECTAL 04/09/17 16:45 (Lactulose Liq) 30 ml DAILY PRN PO 04/09/17 16:45 (Romazicon Inj) 0.2 mg Q1M PRN IV PUSH 04/09/17 16:45 (Ativan Inj) 1 mg Q4H PRN IV PUSH 04/09/17 16:45 04/11/17 00:09 (Ativan) 2 mg Q2H PRN PO 04/09/17 16:45 (Ativan Inj) 2 mg Q2H PRN IV PUSH 04/09/17 16:45 (Ativan Inj) 2 mg Q1H PRN IV PUSH 04/09/17 16:45 (Ativan Inj) 2 mg Q15M PRN IV PUSH 04/09/17 16:45 (CeleBREX) 200 mg BID PO 04/09/17 21:00 04/14/17 09:21 (Lanoxin) 0.125 mg HS PO 04/09/17 21:00 04/13/17 21:20 (Lexapro) 20 mg HS PO 04/09/17 21:00 04/13/17 21:20 (Imdur) 90 mg DAILY@0700 PO 04/10/17 07:00 04/14/17 05:48 (Xalatan 0.005% Opth Soln) 1 drop HS EACH EYE 04/09/17 21:00 04/13/17 21:19 (Lidoderm 5% Patch.12 Hr) 1 patch DAILY T-DERMAL 04/10/17 09:00 (Nitrostat Sl) 0.4 mg UNSCH PRN SL 04/09/17 17:00 04/10/17 18:04 Patient Own Medication PT OWN MED: Ipratrop... TID NASAL 04/09/17 18:00 Future Hold (Pepcid) 20 mg DAILY PO 04/10/17 09:00 04/14/17 09:21 (Percocet 10-325 Mg) 1 tab Q6H PRN PO 04/09/17 18:15 04/13/17 12:41 (Pill Splitter) 1 ea UNSCH PRN OTHER 04/09/17 18:15 (Adsorbonac 5% Opth) 1 drop HS EACH EYE 04/10/17 21:00 04/12/17 20:50 (Nitroglycerin 2% Oint) 1 inch Q6HR TOPICAL 04/11/17 00:00 04/14/17 11:43 (Heparin Inj) 5,000 units Q8HR SQ 04/11/17 06:00 Future Hold 04/14/17 05:48 (Lipitor) 80 mg HS PO 04/10/17 21:00 04/13/17 21:20 (NS Flush) 2 ml BID IV FLUSH 04/11/17 09:00 04/14/17 09:20 (NS Flush) 2 ml UNSCH PRN IV FLUSH 04/11/17 08:45 Papaverine HCl 60 mg/Nitroglycerin 100 mcg/Diltiazem HCl 100 mg/Sodium Chloride 100 ml @ 0 mls/hr [employer] IRRIGATION 04/11/17 08:45 04/18/17 08:44 Cefazolin Sodium 500 mg/Sodium Chloride 505 ml @ 0 mls/hr [employer] IRRIGATION 04/11/17 08:45 04/18/17 08:44 Cefazolin Sodium/ Dextrose 50 ml @ 100 mls/hr [employer] IV 04/11/17 08:45 04/18/17 08:44 (Lopressor) 12.5 mg [employer] PO 04/11/17 08:45 04/18/17 08:44 (Hibiclens 4% Top Soln) 1 applic [employer] TOPICAL 04/11/17 08:45 04/18/17 08:44 Insulin Human Regular 100 units/ Sodium Chloride 100 ml @ 3 mls/hr TITRATE PRN IV 04/11/17 08:45 04/18/17 08:44 (D50w (Vial) Inj) 50 ml UNSCH PRN IV PUSH 04/11/17 08:45 (Ecotrin Ec) 81 mg DAILY PO 04/13/17 09:00 04/14/17 09:21 (Restoril) 7.5 mg HS PRN PO 04/12/17 22:15 04/13/17 21:20 Ciprofloxacin/ Dextrose 200 ml @ 200 mls/hr Q12H IV 04/13/17 20:00 04/14/17 09:20 (Ferrous Sulfate) 325 mg TID PO 04/14/17 09:00 04/14/17 09:21 (Lopressor) 25 mg Q12HR PO 04/14/17 21:00 (Xanax) 0.25 mg Q8H PO 04/14/17 10:00 04/14/17 11:44 (Antonio Rosales MD, R3) A/P Assessment and Plan Patient is a 66-year-old male past medical history of [place] 2 with prior h/o stent placement x4 and pacer-defibrillator placement presents to the ED with 1 day h/o of shortness of breath and chest pain in the setting of recent cardiac catheterization that was done on 04/06 due to [place]. Admitted for further cardiac w/ u. Plan for CABG procedure. Discharge Planning To be determined following his CABG procedure, pendant upon recovery (Antonio Rosales MD, R3) Attending Attestation Patient seen and examined and case reviewed and discussed with the resident team. Agree with plan of care as discussed with me and documented in the resident note. Start low dose Xanax for pre-CABG anxiety. (Inge Hansen MD) Problem List: (1) Shortness of breath ICD Codes: R06.02 - Shortness of breath Status: Resolved Plan: Patient reported that he may have overdone it yesterday with physical therapy. Today he is going to take a break and just transfer between bed and chair, in bed and bath -Patient stated shortness of breath has improved since being on oxygen. Currently with O2 saturations are 98% on RA -Shortness of breath can be due to likely cardiac related -CXR: No acute disease -Lower extremity ultrasound: Negative for pseudoaneurysm large hematoma on right groin. -Titrate oxygen as needed -See plan below (2) Coronary artery disease ICD Codes: I25.10 - Atherosclerotic heart disease of [place] coronary artery without angina pectoris Status: Chronic Plan: Significant cardiac history of recent NH on 04/05/17 and cardiac cath on . On admission: Troponin x1 elevated to 2.86, CK-MB: 16.7 EKG: Sinus rhythm with occasional ventricular premature complexes, ST-T wave abnormalities and ST deviation Troponin up-trended 2.86-->4.53-->4.17 -patient placed on telemetry -Continue to monitor -Cardiology consultation, appreciate recommendations Continue with nitroglycerin as needed for pain relief Based on review of cardiac catheter films patient anticipated to benefit from coronary artery bypass graft surgery -Case discussed by Dr. Lott with Dr. Shanks, Cardiothoracic surgery consultation Monitor H&H. Goal to keep hemoglobin greater than 8 due to cardiac history. Transfuse if Hbg less than 8. -s/p transfusion of 2 units PRBCs with appropriate response -c/w aspirin 325mg QD, atorvastatin 80mg HS -Nitro paste and subcutaneous heparin added -Medications on hold: Plavix, spironolactone, Altace -Avoid Plavix/Effient or Lovenox (3) Anxiety ICD Codes: F41.9 - Anxiety disorder, unspecified Status: Acute Plan: Patient is having acute worsening of his anxiety. He is having to wait several days for his procedure. His anxiety is understandable. Discussed his options and he agrees to a trial of Xanax. * Started Xanax 0.25 mg p.o. every 8 hours scheduled, titrate according (4) Chronic pain ICD Codes: G89.29 - Other chronic pain Status: Chronic Plan: Continue with home dose of Oxycodone-Acetaminophen 10mg Q6h PRN (5) Alcohol use ICD Codes: Z78.9 - Other specified health status Status: Chronic Plan: Patient stated he drinks about 2 total glasses of bourbon and water daily CIWA score of 10 on 04/11, received ativan and developed sxs of hallucinations. No hallucination this am. Latest CIWA score 0, no issues overnight. continue to monitor -Patient placed on CIWA protocol (6) UTI (urinary tract infection) ICD Codes: N39.0 - Urinary tract infection, site not specified Status: Acute Plan: Patient afebrile, asymptomatic, no leukocytosis. UA showed large leukocyte esterase, few urine bacteria, negative for ketones or urine WBC urine culture: positive for enterococcus Continue levofloxacin Q24h IV (7) Nutrition, metabolism, and development symptoms ICD Codes: R63.8 - Other symptoms and signs concerning food and fluid intake Plan: Fluids: Not indicated at this time Electrolytes: Within normal limits, replete as needed Nutrition: Heart healthy DVT ppx: SCDs, heparin Q12h (Antonio Rosales MD, R3) Antonio Rosales MD, R3 Apr 14, 2017 11:53 Inge Hansen MD Apr 14, 2017 12:01
--- NOTE | 2017-04-14 15:18 | PD.CAR.PN ---
CVT Progress Note Subjective/Hospital Course: 66/ male known coronary artery disease, with prior stenting of the RCA and anterior wall in 2006. Presented with non-STEMI about 5 days ago, underwent cardiac catheterization that revealed borderline moderate to significant disease of the ostium of the circumflex, diffuse disease of the LAD and ostium of the RCA. He had significant tight posterolateral branch disease, receiving collaterals from the left system. Because of the diffuse disease, he was actually treated medically. He developed a large post catheter right groin hematoma. His hemoglobin actually went from 11 down to 8.9. He did not require and presented back on this admission on 04/09 with having chest pain again, also nausea and vomiting, nonspecific ST changes in the EKG, elevated troponin. He had felt very weak at home. He did not, however, pass out. Apparently he did have significant ecchymosis to the right groin area from the right lower quadrant and around the flank area down to the mid thigh. There is significant ecchymosis to the symphysis pubis and the scrotal area. We were consulted by Dr. Lott to evaluate for coronary artery disease bypass grafting. Apparently the patient does have a daily cocktail and had some agitation last night. They gave him some Ativan and they placed him on fall precautions since he had a presyncopal episode at home. PAST MEDICAL HISTORY: Includes an anterior wall MT in 2006, recent non-STEMI, . His initial admission was April 05 and then readmission on 04/09. Non-STEMI segment, again with elevated troponins of 0.7. The patient's includes hypertension, hyperlipidemia, osteoarthritis, gastroesophageal reflux disease, obstructive sleep apnea, on CPAP, ischemic cardiomyopathy with ejection fraction of 35-40%, history of mild to moderate carotid disease, ETOH use. He is legally blind. He uses a walking cane. He has had a service dog up until February and he is to receive a new service dog soon. , back surgery 1995, neck surgery 2004, fusion of the coccyx in 2016, pacer ICD in 2006, with a generator change out in 2013. 04/12 pt doing well, PT working with pt, no chest pain ecchymosis right groin , scrotum , right flank unchanged, no hematoma no further agitation, pt states he drinks 2 oz cocktail at night , denies any tremors will transfuse with 2 units PRBC today surgery scheduled for Thursday 04/13 HGB improved 10.6 on room air feels better for surgery on friday 04/14 doing well , no complaints for surgery on Monday Objective: GENERAL: A&O x 3 SKIN: Warm and dry. ecchymotic area right thigh and groin improving HEAD: Normocephalic. EYES: No scleral icterus. No injection or drainage. NECK: Supple, trachea midline. No JVD or lymphadenopathy. CARDIOVASCULAR: Regular rate and rhythm without murmurs, gallops, or rubs. RESPIRATORY: Breath sounds equal bilaterally. No accessory muscle use. GASTROINTESTINAL: Abdomen soft, non-tender, nondistended. MUSCULOSKELETAL: No cyanosis, or edema. BACK: Nontender without obvious deformity. No CVA tenderness. Vital Signs Date Time Temp Pulse Resp B/P (MAP) Pulse Ox O2 Delivery O2 Flow Rate FiO2 04/14/17 12:00 98.4 69 18 119/75 (90) 98 04/14/17 12:00 75 04/14/17 11:00 82 04/14/17 10:00 74 04/14/17 09:42 96 21 04/14/17 09:00 68 04/14/17 08:18 98.0 62 14 112/72 (85) 99 04/14/17 08:00 70 04/14/17 07:18 75 04/14/17 06:40 53 04/14/17 05:57 56 04/14/17 04:26 58 04/14/17 03:40 98.0 58 19 144/74 (97) 99 04/14/17 03:34 55 04/14/17 02:16 52 04/14/17 01:31 56 04/14/17 00:10 53 04/13/17 23:40 98.1 61 18 105/64 (78) 96 04/13/17 23:40 61 04/13/17 22:13 62 04/13/17 21:00 62 04/13/17 20:05 99 04/13/17 20:00 63 04/13/17 19:00 64 04/13/17 19:00 98.0 62 20 119/68 (85) 98 04/13/17 18:16 62 04/13/17 17:14 64 04/13/17 17:00 99.1 62 14 132/73 (92) 98 04/13/17 16:21 61 Result Diagram: 04/13/17 0325 04/13/17 0325 (1) Blood loss anemia Plan: s/p 2 units PRBC (2) right groin hematoma Plan: stable (3) NSTEMI (non-ST elevated myocardial infarction) (4) Coronary artery disease Plan: on heparin sq, ASA for surgery on Monday (5) UTI (urinary tract infection) Plan: enterococcus / klebsiella sensitive to cipro GNR / change to cipro IV (6) Legally blind Plan: fall precautions Mildred Sweeney Apr 14, 2017 15:18
[2017-04-14 20:29] LABS: HEMATOCRIT 33.3 % (39.0-51.0); HEMOGLOBIN 11.3 GM/DL (13.0-17.0)
[2017-04-14] MEDS: SODIUM CHLORIDE 5% OPHT SOLN 15 ML BTL EACH EYE SCH (21:00)
[2017-04-14] MEDS: LATANOPROST 0.005% OPHT SOLN 2.5 ML BTL EACH EYE SCH (21:09)
[2017-04-14] MEDS: ESCITALOPRAM OXALATE 20 MG TAB PO SCH (21:10)
[2017-04-14] MEDS: ATORVASTATIN 80 MG TAB PO SCH (21:10)
[2017-04-14] MEDS: METOPROLOL TARTRATE 25 MG TAB PO SCH (21:10)
[2017-04-14] MEDS: TEMAZEPAM 7.5 MG CAP PO PRN (21:11)
[2017-04-14] MEDS: DIGOXIN 0.125 MG TAB PO SCH (21:11)
[2017-04-15] VITALS (25 sets, daily range): BP systolic 101–137; BP diastolic 56–83; PULSE 53–91; RESP 20; TEMP 98–98.9; O2SAT 94–99
[2017-04-15 05:00] LABS: HEMATOCRIT 34.7 % (39.0-51.0); MEAN CELL VOLUME 88.8 FL (80.0-100.0); MEAN CORPUSCULAR HEMOGLOBIN 30.8 PG (27.0-34.0); MEAN CORPUSCULAR HGB CONC 34.7 % (32.0-36.0); MEAN PLATELET VOLUME 7.8 FL (7.0-11.0); PLATELET COUNT 293 TH/MM3 (150-450); RED BLOOD COUNT 3.91 MIL/MM3 (4.50-5.90); RED CELL DISTRIBUTION WIDTH 14.1 % (11.6-17.2); WHITE BLOOD COUNT 9.4 TH/MM3 (4.0-11.0)
[2017-04-15 05:20] LABS: ALT (GPT) 45 U/L (12-78); AST (GOT) 45 U/L (15-37); BICARBONATE 24.7 MEQ/L (21.0-32.0); BLOOD UREA NITROGEN 15 MG/DL (7-18); CALCIUM 8.9 MG/DL (8.5-10.1); CHLORIDE 108 MEQ/L (98-107); CREATININE 0.69 MG/DL (0.60-1.30); GLOMERULAR FILTRATION RATE 115 ML/MIN (>89); GLUCOSE,RANDOM 81 MG/DL (74-106); SODIUM (NA) 141 MEQ/L (136-145)
[2017-04-15 05:22] LABS: ALKALINE PHOSPHATASE 74 U/L (45-117); TOTAL BILIRUBIN ADULT 1.5 MG/DL (0.2-1.0); TOTAL PROTEIN 6.3 GM/DL (6.4-8.2)
[2017-04-15] MEDS: HEPARIN SODIUM - SQ 10,000 UNITS/ML VIAL SQ SCH ×3 (06:14→21:34)
[2017-04-15] MEDS: ISOSORBIDE MONONITRATE 60 MG CR TAB (IMDUR) PO SCH (06:14)
[2017-04-15] MEDS: ALPRAZolam 0.25 MG TAB PO SCH ×3 (06:15→17:06)
[2017-04-15] MEDS: NITROGLYCERIN 2% OINT 1 GM PACKET TOPICAL SCH ×4 (06:15→23:54)
[2017-04-15] MEDS: LIDOCAINE HCL 5% PATCH T-DERMAL SCH (08:29)
[2017-04-15] MEDS: ASPIRIN EC 81 MG TABEC PO SCH (08:33)
[2017-04-15] MEDS: CIPROFLOXACIN 400 MG PREMIX 200 ML IV SCH ×2 (08:33→20:37)
[2017-04-15] MEDS: oxyCODONE/ACETAMINOPHEN 10 MG/325 MG TAB PO PRN (08:34)
[2017-04-15] MEDS: FERROUS SULFATE 325 MG (65 MG ELEMENTAL IRON) TAB PO SCH ×4 (08:34→17:06)
[2017-04-15] MEDS: CELECOXIB 200 MG CAP PO SCH ×2 (08:34→21:34)
[2017-04-15] MEDS: SODIUM CHLORIDE 0.9% FLUSH 10 ML FLUSH IV FLUSH SCH ×2 (08:34→21:35)
[2017-04-15] MEDS: METOPROLOL TARTRATE 25 MG TAB PO SCH ×2 (08:34→21:34)
[2017-04-15] MEDS: FAMOTIDINE 20 MG TAB PO SCH (08:34)
--- NOTE | 2017-04-15 09:12 | HHI.FPPN ---
Subjective Remarks Pt seen and examined this morning. No acute events overnight. Denies any new complaints this morning. Ready for surgery on Monday. Improved SOB from yesterday. Denies any chest pain, SOB, abdominal pain, leg pain. Objective Vitals Vital Signs Date Time Temp Pulse Resp B/P (MAP) Pulse Ox O2 Delivery O2 Flow Rate FiO2 04/15/17 07:45 98.1 75 20 134/76 (95) 96 04/15/17 07:45 67 04/15/17 06:01 73 04/15/17 05:00 58 04/15/17 04:00 59 04/15/17 03:00 56 04/15/17 03:00 98.3 58 132/68 (89) 99 04/15/17 02:00 53 04/15/17 01:02 54 04/15/17 00:07 54 04/14/17 23:00 98.2 60 131/76 (94) 96 04/14/17 23:00 58 04/14/17 22:00 72 04/14/17 21:00 78 04/14/17 20:00 72 04/14/17 19:00 76 04/14/17 19:00 99.0 73 144/84 (104) 99 04/14/17 17:00 70 04/14/17 16:00 98.0 63 18 107/71 (83) 98 04/14/17 15:36 80 04/14/17 15:00 70 04/14/17 14:00 72 04/14/17 13:00 78 04/14/17 12:00 98.4 69 18 119/75 (90) 98 04/14/17 12:00 75 04/14/17 11:00 82 04/14/17 10:00 74 04/14/17 09:42 96 21 I/O 04/14/17 04/14/17 04/14/17 04/15/17 04/15/17 04/15/17 07:00 15:00 23:00 07:00 15:00 23:00 Intake Total 480 ml 450 ml 240 ml Output Total 925 ml 800 ml 1080 ml Balance -445 ml -350 ml -840 ml Intake Oral 480 ml 450 ml 240 ml Output Urine Total 925 ml 800 ml 1080 ml # Bowel Movements 0 Result Diagram: 04/15/17 0352 04/15/17 0352 Objective Remarks GENERAL: This is a well-nourished, well-developed patient, laying bed in NAD. SKIN: No rashes. Cool and dry. Ecchymosis noted across the lower abdominal area and groin area, nontender to palpation, stable. CARDIOVASCULAR: Regular rate and rhythm without murmurs, gallops, or rubs. RESPIRATORY: Clear to auscultation. No wheezes, rales, or rhonchi. GASTROINTESTINAL: Abdomen soft, non-tender, nondistended. MUSCULOSKELETAL: Extremities without clubbing, cyanosis, or edema. No calf tenderness. NEUROLOGICAL: AAOx3. Normal speech A/P Assessment and Plan Patient is a 66-year-old male past medical history of [place] 2 with prior h/o stent placement x4 and pacer-defibrillator placement presents to the ED with 1 day h/o of shortness of breath and chest pain in the setting of recent cardiac catheterization that was done on 04/06 due to [place]. Admitted for further cardiac w/ u. Plan for CABG procedure. Discharge Planning To be determined following his CABG procedure, pendant upon recovery Problem List: (1) Coronary artery disease ICD Codes: I25.10 - Atherosclerotic heart disease of [place] coronary artery without angina pectoris Status: Chronic Plan: Significant cardiac history of recent [place] on 04/05/17 and cardiac cath on . On admission: Troponin x1 elevated to 2.86, CK-MB: 16.7 EKG: Sinus rhythm with occasional ventricular premature complexes, ST-T wave abnormalities and ST deviation Troponin up-trended 2.86-->4.53-->4.17 Echo 04/11/17: EF 45-50% -Cardiology consultation, appreciate recommendations Based on review of cardiac catheter films patient anticipated to benefit from coronary artery bypass graft surgery -Case discussed by Dr. Lott with Dr. Shanks, Cardiothoracic surgery consultation -CABG on Monday -Monitor H&H. Goal to keep hemoglobin greater than 8 due to cardiac history. Transfuse if Hbg less than 8. -s/p transfusion of 2 units PRBCs with appropriate response -c/w aspirin 81mg QD, atorvastatin 80mg HS -Metoprolol 25mg q12H -Nitro paste and subcutaneous heparin added -Medications on hold: Plavix, spironolactone, Altace -Avoid Plavix/Effient or Lovenox (2) Shortness of breath ICD Codes: R06.02 - Shortness of breath Status: Resolved Plan: Improved SOB today. -Patient stated shortness of breath has improved since being on oxygen. Currently with O2 saturations are 98% on RA -Shortness of breath can be due to likely cardiac related -CXR: No acute disease -Lower extremity ultrasound: Negative for pseudoaneurysm large hematoma on right groin. -Titrate oxygen as needed -See plan below (3) Anxiety ICD Codes: F41.9 - Anxiety disorder, unspecified Status: Acute Plan: Anxiety stable today Discussed his options and he agrees to a trial of Xanax. * Started Xanax 0.25 mg p.o. every 8 hours scheduled, titrate according (4) Chronic pain ICD Codes: G89.29 - Other chronic pain Status: Chronic Plan: Continue with home dose of Oxycodone-Acetaminophen 10mg Q6h PRN (5) Alcohol use ICD Codes: Z78.9 - Other specified health status Status: Chronic Plan: Patient stated he drinks about 2 total glasses of bourbon and water daily CIWA score of 10 on 04/11, received ativan and developed sxs of hallucinations. No hallucination this am. Latest CIWA score 0, no issues overnight. continue to monitor -Patient placed on CIWA protocol (6) UTI (urinary tract infection) ICD Codes: N39.0 - Urinary tract infection, site not specified Status: Acute Plan: Patient afebrile, asymptomatic, no leukocytosis. UA showed large leukocyte esterase, few urine bacteria, negative for ketones or urine WBC urine culture: positive for enterococcus -Cipro 400mg q12H (7) Nutrition, metabolism, and development symptoms ICD Codes: R63.8 - Other symptoms and signs concerning food and fluid intake Plan: Fluids: Not indicated at this time Electrolytes: Within normal limits, replete as needed Nutrition: Heart healthy DVT ppx: SCDs, heparin Q12h Renato Elizondo MD Apr 15, 2017 09:12
[2017-04-15] MEDS: SODIUM CHLORIDE 5% OPHT SOLN 15 ML BTL EACH EYE SCH (21:00)
[2017-04-15] MEDS: LATANOPROST 0.005% OPHT SOLN 2.5 ML BTL EACH EYE SCH (21:33)
[2017-04-15] MEDS: TEMAZEPAM 7.5 MG CAP PO PRN (21:34)
[2017-04-15] MEDS: ESCITALOPRAM OXALATE 20 MG TAB PO SCH (21:34)
[2017-04-15] MEDS: DIGOXIN 0.125 MG TAB PO SCH (21:34)
[2017-04-15] MEDS: ATORVASTATIN 80 MG TAB PO SCH (21:34)
[2017-04-16] VITALS (25 sets, daily range): BP systolic 105–129; BP diastolic 58–80; PULSE 53–84; RESP 20; TEMP 97.7–98.6; O2SAT 95–98
[2017-04-16] MEDS: ALPRAZolam 0.25 MG TAB PO SCH ×3 (03:57→17:07)
[2017-04-16 05:54] LABS: HEMATOCRIT 34.5 % (39.0-51.0); HEMOGLOBIN 11.9 GM/DL (13.0-17.0); MEAN CELL VOLUME 88.9 FL (80.0-100.0); MEAN CORPUSCULAR HEMOGLOBIN 30.7 PG (27.0-34.0); MEAN CORPUSCULAR HGB CONC 34.5 % (32.0-36.0); MEAN PLATELET VOLUME 7.9 FL (7.0-11.0); PLATELET COUNT 292 TH/MM3 (150-450); RED BLOOD COUNT 3.88 MIL/MM3 (4.50-5.90); RED CELL DISTRIBUTION WIDTH 14.4 % (11.6-17.2); WHITE BLOOD COUNT 8.9 TH/MM3 (4.0-11.0)
[2017-04-16] MEDS: ISOSORBIDE MONONITRATE 60 MG CR TAB (IMDUR) PO SCH (06:14)
[2017-04-16] MEDS: NITROGLYCERIN 2% OINT 1 GM PACKET TOPICAL SCH ×4 (06:14→23:10)
[2017-04-16] MEDS: HEPARIN SODIUM - SQ 10,000 UNITS/ML VIAL SQ SCH (06:14)
[2017-04-16 06:20] LABS: BICARBONATE 26.5 MEQ/L (21.0-32.0); CALCIUM 8.9 MG/DL (8.5-10.1); CREATININE 0.71 MG/DL (0.60-1.30)
[2017-04-16] MEDS: LIDOCAINE HCL 5% PATCH T-DERMAL SCH (08:44)
[2017-04-16] MEDS: FERROUS SULFATE 325 MG (65 MG ELEMENTAL IRON) TAB PO SCH ×3 (08:45→17:07)
[2017-04-16] MEDS: CIPROFLOXACIN 400 MG PREMIX 200 ML IV SCH ×2 (08:45→19:55)
[2017-04-16] MEDS: SODIUM CHLORIDE 0.9% FLUSH 10 ML FLUSH IV FLUSH SCH ×2 (08:45→21:42)
[2017-04-16] MEDS: ASPIRIN EC 81 MG TABEC PO SCH (08:45)
[2017-04-16] MEDS: METOPROLOL TARTRATE 25 MG TAB PO SCH ×2 (08:45→21:42)
[2017-04-16] MEDS: FAMOTIDINE 20 MG TAB PO SCH (08:45)
[2017-04-16] MEDS: CELECOXIB 200 MG CAP PO SCH ×2 (08:45→21:42)
--- NOTE | 2017-04-16 10:28 | HHI.FPPN ---
Subjective Remarks Patient seen and examined at bedside this morning. No acute events overnight. Patient stated he is doing well this morning, less anxious about CABG procedure scheduled for Monday. Denies active CP, SOB, N/V, abdominal pain. Patients states he is doing well. No other complaints. (Ivone Bianchi MD, R1) Objective Vitals Vital Signs Date Time Temp Pulse Resp B/P (MAP) Pulse Ox O2 Delivery O2 Flow Rate FiO2 04/16/17 10:00 71 04/16/17 09:00 74 04/16/17 08:42 98 21 04/16/17 08:00 78 04/16/17 07:25 98.0 67 20 129/80 (96) 95 04/16/17 07:25 59 04/16/17 06:00 55 04/16/17 05:00 53 04/16/17 04:00 57 04/16/17 03:00 57 04/16/17 03:00 97.7 60 117/63 (81) 96 04/16/17 01:00 54 04/16/17 00:00 60 04/15/17 23:00 98.0 61 137/83 (101) 97 04/15/17 23:00 58 04/15/17 22:00 60 04/15/17 21:00 62 04/15/17 20:00 64 04/15/17 19:00 98.9 65 123/74 (90) 98 04/15/17 19:00 64 04/15/17 18:00 65 04/15/17 17:00 56 04/15/17 16:00 58 04/15/17 15:00 98.2 60 20 125/83 (97) 98 04/15/17 15:00 61 04/15/17 14:00 60 04/15/17 13:00 91 04/15/17 12:00 84 04/15/17 11:00 98.5 78 20 101/56 (71) 94 04/15/17 11:00 75 I/O 04/15/17 04/15/17 04/15/17 04/16/17 04/16/17 04/16/17 07:00 15:00 23:00 07:00 15:00 23:00 Intake Total 240 ml 920 ml 240 ml Output Total 1080 ml 650 ml 1500 ml Balance -840 ml 270 ml -1260 ml Intake Oral 240 ml 720 ml 240 ml IV Total 200 ml Output Urine Total 1080 ml 650 ml 1500 ml # Bowel Movements 1 (Ivone Bianchi MD, R1) Result Diagram: 04/16/17 0507 04/16/17 0507 Objective Remarks GENERAL: This is a well-nourished, well-developed patient, laying bed in NAD. SKIN: No rashes. Cool and dry. Ecchymosis noted across the lower abdominal area and groin area, nontender to palpation, stable. CARDIOVASCULAR: Regular rate and rhythm without murmurs, gallops, or rubs. RESPIRATORY: Clear to auscultation. No wheezes, rales, or rhonchi. GASTROINTESTINAL: Abdomen soft, non-tender, nondistended. MUSCULOSKELETAL: Extremities without clubbing, cyanosis, or edema. No calf tenderness. NEUROLOGICAL: AAOx3. Normal speech (Ivone Bianchi MD, R1) A/P Assessment and Plan Patient is a 66-year-old male past medical history of IN 2 with prior h/o stent placement x4 and pacer-defibrillator placement presents to the ED with 1 day h/o of shortness of breath and chest pain in the setting of recent cardiac catheterization that was done on 04/06 due to IN. Admitted for further cardiac w/ u. Plan for CABG procedure. Discharge Planning To be determined following his CABG procedure, pendant upon recovery (Ivone Bianchi MD, R1) Attending Attestation Patient seen and examined. Case reviewed and discussed with the resident team. Agree with plan of care as discussed with me and documented in the resident note. (Inge Hansen MD) Problem List: (1) Coronary artery disease ICD Codes: I25.10 - Atherosclerotic heart disease of [place] coronary artery without angina pectoris Status: Chronic Plan: Significant cardiac history of recent IN on 04/05/17 and cardiac cath on . On admission: Troponin x1 elevated to 2.86, CK-MB: 16.7 EKG: Sinus rhythm with occasional ventricular premature complexes, ST-T wave abnormalities and ST deviation Troponin up-trended 2.86-->4.53-->4.17 Echo 04/11/17: EF 45-50% -Cardiology consultation, appreciate recommendations Based on review of cardiac catheter films patient anticipated to benefit from coronary artery bypass graft surgery -Case discussed by Dr. Lott with Dr. Shanks, Cardiothoracic surgery consultation -CABG on Monday -Monitor H&H. Goal to keep hemoglobin greater than 8 due to cardiac history. Transfuse if Hbg less than 8. -s/p transfusion of 2 units PRBCs with appropriate response -c/w aspirin 81mg QD, atorvastatin 80mg HS -Metoprolol 25mg q12H -Nitro paste and subcutaneous heparin added -Medications on hold: Plavix, spironolactone, Altace -Avoid Plavix/Effient or Lovenox (2) Shortness of breath ICD Codes: R06.02 - Shortness of breath Status: Resolved Plan: Improved SOB today. -Patient stated shortness of breath has improved since being on oxygen. Currently with O2 saturations are 98% on RA -Shortness of breath can be due to likely cardiac related -CXR: No acute disease -Lower extremity ultrasound: Negative for pseudoaneurysm large hematoma on right groin. -Titrate oxygen as needed -See plan below (3) Anxiety ICD Codes: F41.9 - Anxiety disorder, unspecified Status: Acute Plan: Anxiety stable today Discussed his options and he agrees to a trial of Xanax. * Started Xanax 0.25 mg p.o. every 8 hours scheduled, titrate according (4) Chronic pain ICD Codes: G89.29 - Other chronic pain Status: Chronic Plan: Continue with home dose of Oxycodone-Acetaminophen 10mg Q6h PRN (5) Alcohol use ICD Codes: Z78.9 - Other specified health status Status: Chronic Plan: Patient stated he drinks about 2 total glasses of bourbon and water daily CIWA score of 10 on 04/11, received ativan and developed sxs of hallucinations. No hallucination this am. Latest CIWA score 0, no issues overnight. continue to monitor -Patient placed on CIWA protocol (6) UTI (urinary tract infection) ICD Codes: N39.0 - Urinary tract infection, site not specified Status: Acute Plan: Patient afebrile, asymptomatic, no leukocytosis. UA showed large leukocyte esterase, few urine bacteria, negative for ketones or urine WBC urine culture: positive for enterococcus -Cipro 400mg q12H (7) Nutrition, metabolism, and development symptoms ICD Codes: R63.8 - Other symptoms and signs concerning food and fluid intake Plan: Fluids: Not indicated at this time Electrolytes: Within normal limits, replete as needed Nutrition: Heart healthy DVT ppx: SCDs, heparin Q12h (Ivone Bianchi MD, R1) Ivone Bianchi MD, R1 Apr 16, 2017 10:28 Inge Hansen MD Apr 16, 2017 18:43
[2017-04-16] MEDS: oxyCODONE/ACETAMINOPHEN 10 MG/325 MG TAB PO PRN (13:08)
--- NOTE | 2017-04-16 13:30 | HHI.FPPN ---
Addendum to progress note ADDENDUM Reason for addendum: Additonal documentation Additional information Off service note: is a 66-year-old Male with PMHX significant for 2 prior MIs. First GA occurred in 2006 and he underwent 4 stents and pace-defibrillator placement at that time. Second GA occurred 04/05/17 and patient underwent cardiac cath on 04/[address] Lott. On 04/09/17 he presented to the ED with c/o SOB, chest pain and malaise. Patient was also found to have elevated troponins 2.86-->4.53-->4.17, most recent troponin 0.90. Given his cardiac history and recent cardiac cath procedure cardiology was consulted. Patient was also found to have right groin hematoma that spread across his lower abdomen and inner thigh. U/S ordered showed no evidence of pseudoaneurysm and the hematoma has remain non-tender and stable. He received 2 units of PRBC with appropriate response and resolution of fatigue/tired sxs, goal is to maintain Hgb >8. H/H has remained stable. Based on review of patient's heart anatomy cardiology concluded patient would benefit from CABG procedure and consult was made for cardiothoracic surgery (Dr. Quinn is following). On admission, pt was also placed on CIWA protocol due to hx of drinking 2 glasses of liquor daily. On 04/11 pt had a CIWA score of 10 and was given ativan and subsequently had a period of hallucinations, latest CIWA scores have remain zero. Patient was also found to have a UTI, urine cx were positive for Klebsiella pneumoniae and enterococcus faecalis and is currently on cipro. Xanax 0.25mg scheduled Q8H was started on 04/14 to help pt with anxiety. Patient has remained hemodynamically stable with no complaints and with resolution of chest pain, shortness of breath and fatigue thus far. Medical plan is for CABG procedure to be done on Monday, 04/17. 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 Ivone Bianchi MD, R1 Apr 16, 2017 13:30
[2017-04-16] MEDS: SODIUM CHLORIDE 5% OPHT SOLN 15 ML BTL EACH EYE SCH (21:00)
[2017-04-16] MEDS: LATANOPROST 0.005% OPHT SOLN 2.5 ML BTL EACH EYE SCH (21:42)
[2017-04-16] MEDS: DIGOXIN 0.125 MG TAB PO SCH (21:43)
[2017-04-16] MEDS: ATORVASTATIN 80 MG TAB PO SCH (21:43)
[2017-04-16] MEDS: ESCITALOPRAM OXALATE 20 MG TAB PO SCH (22:41)
[2017-04-16] MEDS: TEMAZEPAM 7.5 MG CAP PO PRN (22:41)
[2017-04-17] VITALS (16 sets, daily range): BP systolic 93–134; BP diastolic 54–74; PULSE 53–84; RESP 12–17; TEMP 97.6–98.1; O2SAT 98–99
[2017-04-17] MEDS: ALPRAZolam 0.25 MG TAB PO SCH ×3 (03:51→17:47)
[2017-04-17] MEDS: ISOSORBIDE MONONITRATE 60 MG CR TAB (IMDUR) PO SCH (06:00)
[2017-04-17] MEDS: NITROGLYCERIN 2% OINT 1 GM PACKET TOPICAL SCH (06:01)
[2017-04-17] MEDS: METOPROLOL TARTRATE 25 MG TAB PO SCH (06:01)
[2017-04-17] MEDS ORDERED: HEPARIN SODIUM - SQ 10,000 UNITS/ML VIAL ONE (06:34)
[2017-04-17] MEDS ORDERED: ceFAZolin 2 GM PREMIX 50 ML ONE ×2 (06:34→10:43)
[2017-04-17] MEDS ORDERED: methylPREDNISolone SOD SUCC 125 MG/2 ML VIAL ONE (06:34)
[2017-04-17] MEDS ORDERED: VANCOMYCIN HCL 1000 MG VIAL ONE (06:34)
[2017-04-17] MEDS ORDERED: DEXMEDETOMIDINE HCL 200 MCG/2 ML VIAL ONE (07:04)
[2017-04-17] MEDS: ceFAZolin 2 GM PREMIX 50 ML IV SCH ×2 (07:37→11:15)
[2017-04-17] MEDS: FERROUS SULFATE 325 MG (65 MG ELEMENTAL IRON) TAB PO SCH ×3 (09:00→17:46)
[2017-04-17] MEDS: LIDOCAINE HCL 5% PATCH T-DERMAL SCH (09:00)
[2017-04-17] MEDS: FAMOTIDINE 20 MG TAB PO SCH (09:00)
[2017-04-17] MEDS: SODIUM CHLORIDE 0.9% FLUSH 10 ML FLUSH IV FLUSH SCH ×2 (09:00→19:46)
[2017-04-17] MEDS: ASPIRIN EC 81 MG TABEC PO SCH (09:00)
--- NOTE | 2017-04-17 11:03 | RSPPFT ---
DATE OF PROCEDURE: 04/11/17 COMMENTS: Spirometry is within normal limits. FEV1/FVC ratio is 82%. Flow volume loops appear unremarkable. IMPRESSION: 1. Essentiallly normal pulmonary function study.
--- NOTE | 2017-04-17 11:20 | HHI.FF ---
Face to Face Verification Diagnosis: (1) NSTEMI (non-ST elevated myocardial infarction) (2) Legally blind (3) right groin hematoma (4) Alcohol use (5) Coronary artery disease (6) S/P CABG (coronary artery bypass graft) Physical Therapy Order: Evaluate and Treat Home Health Nursing Order: Signs/symptoms of disease process Medication education-adverse effect Wound care and dressing changes Nursing assessment with vital signs Instructions: Heart and Vascular Surgery patients *Special attention to sternal dressing Mandatory frequency Assess and evaluation, 4 days in a row The next week 3X week 2 times a week for 4 weeks 1 time a week for 5 weeks Schedule Heart and Vascular patients for full 60 day certification period Initial visit Review Open Heart Surgery Discharge Instructions (Sternal precautions, Activity, Elastic hose, Incision care, Driving, Incentive spirometry, Smoking, [place]arn[place], Work and other) Need Betadine to paint incision Medication reconciliation Importance of follow up care/ check on appointments Make calendar record temperature daily When to call [facility] nurse, review instructions, phone list Incentive Spirometry, demonstration Visit 1- Begin discharge instruction for patient family and/ or caregiver using teach back method- Signs and symptoms of infection Disease characteristics Medicines and side effects Foods and nutrition/ appetite Infection control/ hand washing/ hygiene Visit 2- Continue teaching Discharge instructions- include additional information on smoking cessation , sternal dressing (sternal vac) Visit 3- Continue teaching- Cough and deep breathing, incision monitoring. Choose my plate Visit 4- Continue teaching- Discuss limitations Discuss how they are feeling Discuss progress toward goals Remaining visits- continue teaching and monitoring PREVENA Single Use Negative Wound Therapy System Caregiver Instruction Sheet 1. A Prevena dressing system was applied to the chest incision during surgery , to promote wound healing. It works via a suction device (negative pressure wound therapy) to remove low to moderate levels of exudate (drainage) and infectious materials. We recommend that the device stay in place for up to seven days, from day of surgery. 2. Day of Surgery___/01/23 Day of Removal __/ 3. The dressing should only be removed by a health patient care secretary. Please arrange removal of device to coincide with Home Health visit and or with Nursing staff at Rehab 4. If skin reddening or irritation of skin occurs, or excessive drainage, please notify the Cardiovascular Surgeons office at [phone]. 5. Light showering is permissible; however the pump should be disconnected and placed in safe location, where it will not get wet. The dressing should not be exposed to direct spray or submerged in water. No bath tub / shower only. Ensure the end of the tubing attached to the dressing is facing down so that water does not enter the top of the tube. 6. To remove Prevena dressing: press purple button to turn off device / remove the suction. Then disconnect the tubing from the pump. The fixation strips should be stretched away from the skin and the dressing lifted at one corner and peeled back until it has been fully removed. 7. After removal, it is ok to shower daily using liquid dial soap and clean wash cloth, rinse and pat dry, and leave incision open to air dry. For any concerns regarding Prevena dressing, and or wounds, please contact Tammy Santos, patient navigator at [phone] or notify the Cardiovascular Surgeons office at [phone]. Incentive spirometry Q1 hr x 10, while awake, also use acapella device hourly whole awake Sternal Breast Bone Precautions: NO pushing or pulling, ( pt must use sternal pillow to support chest with all activities and with coughing ( takes up to 3 months breast bone to heal ) Daily incision care: ok to shower daily, no tub bath. Wash all incisions with liquid dial soap, clean wash cloth to each site, rinse and pat dry. Observe for any signs of infection, such as drainage which is dark yellow, carlson, green or foul smelling. Immediately report to the surgeon any drainage from the chest incision, or legs, and for any abnormal drainage from the chest tube sites. Notify surgeon if any temp >101.5 degrees F. When specialty dressing removed/ or if you do not have one, continue to shower daily as above, then rinse and pat incision dry and paint with betadine daily x 5 days. Allow steri strips to fall off if you have any. Avoid lotions, creams, salves, oils, etc. for the first month Please see attached forms for additional instructions regarding post Open Heart specialty wound vacuum dressings. NIKOS or Prevena , Dressing to be removed by Nursing staff on _04/24/[address] Quinn patients , please obtain CBC, BMP, PA & Lat CXR in 2 weeks, results to Dr. Quinn ( prescription will be given) ( ) (Tele: [phone]) , F/U appointment: as per [place] instructions: PCP in 2 weeks, CV surgeon 2 weeks, Melon Packer 3-4 weeks For any questions regarding incisions/ dressing / meds / post op care or above Symptoms, Monday 8am-5pm Heart & Vascular Surgery Office ( Dr. Lynch & Dr. Quinn), After Hours / Nights (5pm -8am) Weekends and Holidays Please call [facility] ([facility]) Charge Nurse I have seen patient Pelon Ibanez on 04/17/17. My clinical findings support the need for the requested home health care services because: Patient has SOB Deconditioned w/ increased weakness High risk of falls I certify that my clinical findings support that this patient is homebound because: Post-op weakness (legally blind) Mildred Sweeney Apr 17, 2017 11:20
[2017-04-17] MEDS ORDERED: ACETAMINOPHEN 650 MG SUPP RECTAL PRN (11:30)
[2017-04-17] MEDS ORDERED: POTASSIUM CHLOR 20 MEQ PREMIX 100 ML IV PRN ×3 (11:30)
[2017-04-17] MEDS ORDERED: DEXTROSE 50% IN WATER 50 ML VIAL(D50) IV PUSH PRN (11:30)
[2017-04-17] MEDS ORDERED: POTASSIUM CHLORIDE 20 MEQ CONTROLLED RELEASE TAB PO PRN ×2 (11:30)
[2017-04-17] MEDS ORDERED: INSULIN REGULAR (IV INFUSION) 100 UNITS in SODIUM CHLORIDE 0.9% INJ 99 ML IV PRN (11:30)
[2017-04-17] MEDS ORDERED: SODIUM CHLORIDE 0.9% FLUSH 10 ML FLUSH IV FLUSH PRN (11:30)
[2017-04-17] MEDS ORDERED: CALCIUM CHLORIDE INJ 1 GM in SODIUM CHLORIDE 0.9% INJ 100 ML IV PRN (11:30)
[2017-04-17] MEDS ORDERED: MAGNESIUM SULFATE INJ 2 GM in SODIUM CHLORIDE 0.9% INJ 100 ML IV PRN ×4 (11:30)
[2017-04-17] MEDS ORDERED: DEXMEDETOMIDINE INJ 200 MCG in SODIUM CHLORIDE 0.9% INJ 50 ML IV PRN (11:30)
[2017-04-17] MEDS ORDERED: RESP: RACEPINEPHRINE 2.25% 0.5 ML NEB NEB PRN (11:30)
[2017-04-17] MEDS ORDERED: LACTATED RINGER'S 1000 ML INJ 500 ML IV PRN (11:30)
[2017-04-17] MEDS ORDERED: CALCIUM CHLORIDE 10% 1 GRAM/10 ML VIAL IV PUSH PRN (11:30)
[2017-04-17] MEDS ORDERED: hydrALAZINE HCL 20 MG/ML VIAL IV PUSH PRN (11:30)
[2017-04-17] MEDS ORDERED: SODIUM BICARBONATE 8.4% SOLN 50 MEQ/50 ML VIAL IV PUSH PRN ×2 (11:30)
[2017-04-17] MEDS ORDERED: ONDANSETRON HCL 4 MG/2 ML VIAL IV PUSH PRN (11:30)
[2017-04-17] MEDS ORDERED: CLEVIDIPINE INJ 50 ML IV PRN (11:30)
[2017-04-17] MEDS ORDERED: ALBUMIN 5% INJ 250 ML IV PRN (11:30)
[2017-04-17] MEDS ORDERED: ACETAMINOPHEN 325 MG TAB PO PRN (11:30)
[2017-04-17] MEDS ORDERED: Post-op Orders (for Pharmacy) OTHER ONE (11:30)
[2017-04-17] MEDS ORDERED: METOPROLOL TARTRATE 5 MG/5 ML VIAL IV PUSH PRN (11:30)
[2017-04-17] MEDS ORDERED: RESP: ALBUTEROL 2.5 MG/IPRATROPIUM 0.5 MG NEB (PRN) NEB (11:30)
--- NOTE | 2017-04-17 11:40 | PD.OP ---
cc: Alfredo Lott MD; Samara Quinn MD Operative Report Date of Surgery: Apr 17, 2017 Preoperative Diagnosis: (1) CAD (coronary artery disease) (2) NSTEMI (non-ST elevated myocardial infarction) (3) Ischemic cardiomyopathy Postoperative Diagnosis: same Procedure: CABG x 3 CARR to LAD - good SVG to OM - good SVG to PDA - fair EVH RAMIN Anesthesia: Dr. Dominguez Surgeon: Samara Quinn Director Of Marketing [employer](s): Prabha Mcginnis, REBECCA Operation and Findings: The risks, benefits, complications, treatment options, and expected outcomes were discussed with the patient. The possibilities of reaction to medication, pulmonary aspiration, perforation of viscus, bleeding, recurrent infection, the need for additional procedures, failure to diagnose a condition, and creating a complication requiring transfusion or operation were discussed with the patient. The patient concurred with the proposed plan, giving informed consent. The site of surgery properly noted/marked. The patient was taken to Operating Room, identified as Pelon Ibanez and the procedure verified as CABG, EVH, RAMIN. A Time Out was held and the above information confirmed. Standard monitoring lines and Phelps catheter were placed. General anesthesia was induced. The patient was prepped and draped in a sterile fashion. A median sternotomy was performed and electrocautery was used to obtain hemostasis. The left internal mammary artery was procured as a pedicle from the 7th rib to the 1st rib in the usual manner. Simultaneously left greater saphenous vein was procured from the left leg using a minimally invasive endoscopic technique. The vein was prepared for anastomosis and the leg wound was irrigated and closed in 2 layers. The pericardium was opened and a pericardial sling was created using interrupted 0 silk sutures. The patient was heparinized for cardiopulmonary bypass and the distal mammary pedicle was instrumented for anastomosis. The heart was instrumented for cardiopulmonary bypass in the usual manner. Antegrade blood cardioplegia was employed. The patient was placed on cardiopulmonary bypass. An aortic cross-clamp was applied and the heart was arrested using cold blood cardioplegia. Antegrade cardioplegia was administered after he each anastomosis. After adequate arrest, the distal right coronary circulation was investigated and the PDA was opened with a Smyth blade and found to be a 1 millimeter diffusely diseased fair target. Saphenous vein was approximated to the PDA artery using a running 7 0 Prolene suture. The graft was measured for length and orientation and the proximal anastomosis was constructed to the ascending aorta using a running 5 0 Prolene suture after creating an aortotomy with a 5 millimeter punch. The 1st circumflex marginal artery was then opened with a Smyth blade and found to be a 1.5 millimeter good target. The OM1 artery was intramyocardial. Saphenous vein was approximated to the OM1 artery using a running 7 0 Prolene suture. The graft was measured for length and orientation and was suspended from the pericardium. The distal LAD was opened with a Smyth blade and found to be a 1.5 millimeter good target. The left internal mammary artery was approximated to the LAD using a running 7 0 Prolene suture. The pedicle was attached to the epicardium using interrupted 5 0 silk suture. The patient was systemically rewarmed and received a hotshot dose of warm blood cardioplegia. The aorta was vented and the proximal anastomosis to the OM1 graft was accomplished using a running 5 0 Prolene suture after creating an aortotomy was a 5 millimeter punch. The cross-clamp was removed and all proximal and distal anastomoses were examined for hemostasis. The patient was weaned from cardiopulmonary bypass. Protamine was given. There was no adverse reaction. Decannulation was carried out without incident. Wound was checked for hemostasis which was obtained using electrocautery. A 36 [place] mediastinal and 32 [place] left pleural chest tubes were placed and secured to the skin with 0 silk suture. The sternum was closed with stainless steel wire. The fascia was closed with 1. PDS. The subcutaneous tissue was closed using a running 2-0 Vicryl suture. The skin was closed with 4-0 Monocryl. Sterile dressings were placed. At the end of the operation, all sponge, instruments, and needle counts were correct. The patient was transferred to the CVICU in stable condition. Findings: Diffuse CAD with PLB too small to graft XC: 69 min CPB: 78 min Drains: mediastinal x 1 pleural x 1} Complications: {findings; complications tube chest:[id number]::"None; patient tolerated the procedure well."} Disposition: to CVICU in stable condition Samara Quinn MD Apr 17, 2017 11:40
[2017-04-17] MEDS ORDERED: SUGAMMADEX SODIUM 200 MG/2 ML VIAL IV PUSH ONE (11:52)
[2017-04-17] MEDS ORDERED: HEPARIN SODIUM - SQ 10,000 UNITS/ML VIAL SQ ONE (12:00)
[2017-04-17] MEDS ORDERED: VECURONIUM BROMIDE 10 MG VIAL IV ONE (12:00)
[2017-04-17] MEDS ORDERED: SODIUM CHLORIDE 0.9% INJ 100 ML IV ONE (12:00)
[2017-04-17] MEDS ORDERED: ePHEDrine/NS 25 MG/5 ML SYRINGE IV ONE (12:00)
[2017-04-17] MEDS ORDERED: PROTAMINE SULFATE 250 MG/25 ML VIAL IV ONE (12:00)
[2017-04-17] MEDS ORDERED: ARTIFICIAL TEARS OPTH OINT 3.5 APPLIC/3.5 GM TUBO EACH EYE ONE (12:00)
[2017-04-17] MEDS ORDERED: MAGNESIUM SULFATE 1 GM/2 ML VIAL IV ONE (12:00)
[2017-04-17] MEDS ORDERED: SODIUM BICARBONATE 8.4% INJ 50 MEQ/50 ML SYR IV ONE (12:00)
[2017-04-17] MEDS ORDERED: PHENYLEPHRINE HCL 10 MG/ML VIAL IV ONE (12:00)
[2017-04-17] MEDS ORDERED: NITROGLYCERIN 50 MG/DEXTROSE 5% SOLN 250 ML BTL IV ONE (12:00)
[2017-04-17] MEDS ORDERED: CALCIUM CHLORIDE 10% SOLN 1 GRAM/10 ML SYR IV ONE (12:00)
[2017-04-17] MEDS ORDERED: PROPOFOL 500 MG/50 ML BTL IV ONE (12:00)
[2017-04-17] MEDS ORDERED: AMINOCAPROIC ACID INJ 250 MG/ML 20 ML VIAL IV ONE (12:00)
[2017-04-17] MEDS ORDERED: DEXMEDETOMIDINE HCL 200 MCG/2 ML VIAL IV ONE (12:00)
[2017-04-17] MEDS ORDERED: LACTATED RINGER'S 1000 ML INJ 2,000 ML IV ONE (12:00)
[2017-04-17] MEDS ORDERED: SODIUM CHLOR 0.9% 250 ML INJ 1,000 ML IV ONE (12:00)
[2017-04-17] MEDS ORDERED: PHENYLEPH/NS 1000 MCG/10 ML SYR IV ONE (12:00)
[2017-04-17] MEDS ORDERED: LABETALOL HCL 100 MG/20 ML VIAL IV ONE (12:00)
[2017-04-17] MEDS ORDERED: EPINEPHrine HCL (1:1000) 30 MG/30 ML VIAL IV ONE (12:00)
[2017-04-17] MEDS ORDERED: MIDAZOLAM HCL 2 MG/2 ML VIAL ONE (12:20)
[2017-04-17] MEDS ORDERED: fentaNYL CITRATE 250 MCG/5 ML AMP ONE ×2 (12:20→12:21)
--- NOTE | 2017-04-17 12:32 | RADRPT ---
EXAM DATE/TIME: 04/17/2017 12:16 [facility] COMPARISON: CHEST PA & LAT, April 09, 2017, 14:13. INDICATIONS : Post CABG. MEDICAL HISTORY : Congestive heart failure. Myocardial infarction SURGICAL HISTORY : Pacemaker. 4 heart stents, defibrillator ENCOUNTER: Initial ACUITY: 1 day PAIN SCORE: Non-responsive. LOCATION: Bilateral chest FINDINGS: The heart is normal in size. Patient is post median sternotomy. There is a transvenous pacer in place . There is a left-sided chest tube. There is a mediastinal drain present. There is minimal left basil ar effusion and atelectasis. ET tube in good position. The right jugular lines in good position. There is a nasogastric tube prese nt. CONCLUSION: 1. Minimal left basilar effusion and atelectasis. Support equipment in satisfactory position. James Delgado MD on April 17, 2017 at 12:29 Board Certified Radiologist. This report was verified electronically.
[2017-04-17] MEDS: AMIODARONE 200 MG TAB PO SCH ×2 (12:43→20:02)
[2017-04-17] MEDS: ACETAMINOPHEN 1000 MG/100 ML 100 ML IV SCH ×2 (12:43→18:20)
[2017-04-17] MEDS: RESP: ALBUTEROL 2.5 MG/IPRATROPIUM 0.5 MG NEB (SCH) NEB ×2 (16:16→21:12)
[2017-04-17] MEDS: ATORVASTATIN 80 MG TAB PO SCH (19:45)
[2017-04-17] MEDS: oxyCODONE/ACETAMINOPHEN 10 MG/325 MG TAB PO PRN (19:45)
[2017-04-17] MEDS: SODIUM CHLORIDE 5% OPHT SOLN 15 ML BTL EACH EYE SCH (19:58)
[2017-04-17] MEDS: LATANOPROST 0.005% OPHT SOLN 2.5 ML BTL EACH EYE SCH (19:58)
[2017-04-17] MEDS: ESCITALOPRAM OXALATE 20 MG TAB PO SCH (19:59)
[2017-04-17] MEDS: TEMAZEPAM 7.5 MG CAP PO PRN (20:02)
[2017-04-17] MEDS ORDERED: SODIUM CHLORIDE 0.9% FLUSH 10 ML FLUSH IV FLUSH SCH (21:00)
[2017-04-18] VITALS (9 sets, daily range): BP systolic 99–135; BP diastolic 54–80; PULSE 75–90; RESP 16–18; TEMP 98–99.1; O2SAT 95–99
[2017-04-18] MEDS: oxyCODONE/ACETAMINOPHEN 10 MG/325 MG TAB PO PRN ×2 (00:13→05:50)
[2017-04-18] MEDS: ACETAMINOPHEN 1000 MG/100 ML 100 ML IV SCH ×2 (01:00→06:51)
[2017-04-18] MEDS: ALPRAZolam 0.25 MG TAB PO SCH ×3 (02:00→17:20)
[2017-04-18] MEDS: RESP: ALBUTEROL 2.5 MG/IPRATROPIUM 0.5 MG NEB (SCH) NEB ×4 (03:51→20:13)
[2017-04-18 04:45] LABS: HEMATOCRIT 30.5 % (39.0-51.0); HEMOGLOBIN 10.3 GM/DL (13.0-17.0); MEAN CELL VOLUME 90.6 FL (80.0-100.0); MEAN CORPUSCULAR HEMOGLOBIN 30.7 PG (27.0-34.0); MEAN CORPUSCULAR HGB CONC 33.8 % (32.0-36.0); MEAN PLATELET VOLUME 8.2 FL (7.0-11.0); PLATELET COUNT 204 TH/MM3 (150-450); RED BLOOD COUNT 3.37 MIL/MM3 (4.50-5.90); RED CELL DISTRIBUTION WIDTH 14.7 % (11.6-17.2); WHITE BLOOD COUNT 17.7 TH/MM3 (4.0-11.0)
[2017-04-18 05:05] LABS: CALCIUM 8.5 MG/DL (8.5-10.1); CREATININE 0.62 MG/DL (0.60-1.30)
--- NOTE | 2017-04-18 05:11 | RADRPT ---
EXAM DATE/TIME: 04/18/2017 04:03 [facility] COMPARISON: CHEST SINGLE AP, April 17, 2017, 12:16. INDICATIONS : Short of breath. MEDICAL HISTORY : Congestive heart failure. Myocardial infarction SURGICAL HISTORY : Pacemaker. 4 heart stents, defibrillator ENCOUNTER: Subsequent ACUITY: 2 days PAIN SCORE: 0/10 LOCATION: Bilateral chest FINDINGS: A single portable frontal view the chest shows a left thoracostomy tube, left-sided pacing device, an d right-sided central line. No pneumothorax. Minimal atelectasis within the lingula. No infiltrates o r effusions. Heart is mildly enlarged. Median sternotomy wires noted. Cervical spinal fusion plate. CONCLUSION: 1. Minimal lingular atelectasis. 2. Cardiomegaly. Akbar Montaño Jr., MD on April 18, 2017 at 5:09 Board Certified Radiologist. This report was verified electronically.
[2017-04-18] MEDS: AMIODARONE 200 MG TAB PO SCH ×3 (05:50→20:54)
[2017-04-18] MEDS ORDERED: DEXTROSE 50% IN WATER 50 ML VIAL(D50) IV PUSH PRN (08:45)
[2017-04-18] MEDS ORDERED: GLUCAGON 1 MG/ML VIAL OTHER PRN (08:45)
[2017-04-18] MEDS ORDERED: BISACODYL 10 MG SUPP RECTAL PRN (08:45)
[2017-04-18] MEDS ORDERED: SOD PHOSPHATE/SOD BIPHOSPHATE (ADULT) ENEMA 133ML RECTAL PRN (08:45)
[2017-04-18] MEDS: LIDOCAINE HCL 5% PATCH T-DERMAL SCH (08:46)
[2017-04-18] MEDS: METOPROLOL TARTRATE 25 MG TAB PO SCH ×2 (09:00→20:54)
[2017-04-18] MEDS ORDERED: POTASSIUM CHLORIDE 20 MEQ CONTROLLED RELEASE TAB PO ONE (09:00)
[2017-04-18] MEDS ORDERED: FUROSEMIDE 40 MG/4 ML VIAL IV PUSH ONE (09:00)
[2017-04-18] MEDS: SODIUM CHLORIDE 0.9% FLUSH 10 ML FLUSH IV FLUSH SCH ×2 (09:02→20:55)
[2017-04-18] MEDS: MAGNESIUM HYDROXIDE SUSP 30 ML CUP PO SCH (09:03)
[2017-04-18] MEDS: MULTIVITAMINS/MINERALS THERAPEUTIC TAB PO SCH (09:03)
[2017-04-18] MEDS: FERROUS SULFATE 325 MG (65 MG ELEMENTAL IRON) TAB PO SCH ×3 (09:03→17:20)
[2017-04-18] MEDS: DOCUSATE SODIUM 100 MG CAP PO SCH ×2 (09:03→20:54)
[2017-04-18] MEDS: ASPIRIN 81 MG CHEW TAB PO SCH (09:04)
[2017-04-18] MEDS: FAMOTIDINE 20 MG TAB PO SCH (09:04)
[2017-04-18] MEDS: oxyCODONE/ACETAMINOPHEN 5 MG/325 MG TAB PO PRN ×4 (09:05→20:54)
[2017-04-18] MEDS: INSULIN ASPART SUPPLEMENTAL SCALE SQ SCH ×4 (09:54→21:12)
--- NOTE | 2017-04-18 10:26 | PD.CAR.PN ---
CVT Progress Note Subjective/Hospital Course: 66/ male known coronary artery disease, with prior stenting of the RCA and anterior wall in 2006. Presented with non-STEMI about 5 days ago, underwent cardiac catheterization that revealed borderline moderate to significant disease of the ostium of the circumflex, diffuse disease of the LAD and ostium of the RCA. He had significant tight posterolateral branch disease, receiving collaterals from the left system. Because of the diffuse disease, he was actually treated medically. He developed a large post catheter right groin hematoma. His hemoglobin actually went from 11 down to 8.9. He did not require and presented back on this admission on 04/09 with having chest pain again, also nausea and vomiting, nonspecific ST changes in the EKG, elevated troponin. He had felt very weak at home. He did not, however, pass out. Apparently he did have significant ecchymosis to the right groin area from the right lower quadrant and around the flank area down to the mid thigh. There is significant ecchymosis to the symphysis pubis and the scrotal area. We were consulted by Dr. Lott to evaluate for coronary artery disease bypass grafting. Apparently the patient does have a daily cocktail and had some agitation last night. They gave him some Ativan and they placed him on fall precautions since he had a presyncopal episode at home. PAST MEDICAL HISTORY: Includes an anterior wall PA in 2006, recent non-STEMI, . His initial admission was April 05 and then readmission on 04/09. Non-STEMI segment, again with elevated troponins of 0.7. The patient's includes hypertension, hyperlipidemia, osteoarthritis, gastroesophageal reflux disease, obstructive sleep apnea, on CPAP, ischemic cardiomyopathy with ejection fraction of 35-40%, history of mild to moderate carotid disease, ETOH use. He is legally blind. He uses a walking cane. He has had a service dog up until February and he is to receive a new service dog soon. , back surgery 1995, neck surgery 2004, fusion of the coccyx in 2016, pacer ICD in 2006, with a generator change out in 2013. 04/12 pt doing well, PT working with pt, no chest pain ecchymosis right groin , scrotum , right flank unchanged, no hematoma no further agitation, pt states he drinks 2 oz cocktail at night , denies any tremors will transfuse with 2 units PRBC today surgery scheduled for Thursday 04/13 HGB improved 10.6 on room air feels better for surgery on friday 04/14 doing well , no complaints for surgery on Monday 04/17 CABG x 3, CARR to LAD - good, SVG to OM - good, SVG to PDA - fair, L EVH extubated after surgery crystalloid 2100cc, 700cc cell saver, 1400cc EBL/ given solumedrol 04/18 doing well , up in chair add BB on amiodarone ASA, statin pulm toileting, transfer to stepdown Objective: GENERAL: A&O x 3 SKIN: Warm and dry. prevena dressing to chest, romulo wrap to left leg HEAD: Atraumatic. Normocephalic. EYES: Pupils equal and round. No scleral icterus. No injection or drainage. ENT: No nasal bleeding or discharge. Mucous membranes pink and moist. NECK: Trachea midline. No JVD. CARDIOVASCULAR: Regular rate and rhythm. RESPIRATORY: No accessory muscle use. Clear to auscultation. Breath sounds equal bilaterally. GASTROINTESTINAL: Abdomen soft, non-tender, nondistended. Hepatic and splenic margins not palpable. MUSCULOSKELETAL: Extremities without clubbing, cyanosis, or edema. No obvious deformities. NEUROLOGICAL: Awake and alert. No obvious cranial nerve deficits. Motor grossly within normal limits. Five out of 5 muscle strength in the arms and legs. Normal speech. PSYCHIATRIC: Appropriate mood and affect; insight and judgment normal. Vital Signs Date Time Temp Pulse Resp B/P (MAP) Pulse Ox O2 Delivery O2 Flow Rate FiO2 04/18/17 09:54 98 21 04/18/17 07:00 86 04/18/17 07:00 99.1 85 16 132/80 (97) 98 Arterial Line 04/18/17 03:13 98.0 89 16 99/54 (69) 99 131/60 (83) 04/18/17 03:13 86 04/17/17 23:28 98.0 84 16 134/66 (88) 99 116/57 (76) 04/17/17 23:21 79 04/17/17 21:12 99 Nasal Cannula 2.00 04/17/17 19:32 98.1 60 17 120/74 (89) 99 125/74 (91) 04/17/17 19:00 67 3/12/18 15:00 61 04/17/17 15:00 98.1 59 16 93/57 (69) 99 113/59 (77) 04/17/17 14:30 99 Nasal Cannula 4 04/17/17 12:05 99 60 04/17/17 12:00 59 04/17/17 12:00 97.6 56 12 111/59 (76) 99 115/54 (74) 04/17/17 12:00 60 Labs: Laboratory Tests Test 04/18/17 04:16 White Blood Count 17.7 TH/MM3 (4.0-11.0) Red Blood Count 3.37 MIL/MM3 (4.50-5.90) Hemoglobin 10.3 GM/DL (13.0-17.0) Hematocrit 30.5 % (39.0-51.0) Mean Corpuscular Volume 90.6 FL (80.0-100.0) Mean Corpuscular Hemoglobin 30.7 PG (27.0-34.0) Mean Corpuscular Hemoglobin Concent 33.8 % (32.0-36.0) Red Cell Distribution Width 14.7 % (11.6-17.2) Platelet Count 204 TH/MM3 (150-450) Mean Platelet Volume 8.2 FL (7.0-11.0) Blood Urea Nitrogen 14 MG/DL (7-18) Creatinine 0.62 MG/DL (0.60-1.30) Random Glucose 103 MG/DL (74-106) Calcium Level 8.5 MG/DL (8.5-10.1) Magnesium Level 2.0 MG/DL (1.5-2.5) Sodium Level 137 MEQ/L (136-145) Potassium Level 4.2 MEQ/L (3.5-5.1) Chloride Level 103 MEQ/L (98-107) Carbon Dioxide Level 24.0 MEQ/L (21.0-32.0) Anion Gap 10 MEQ/L (5-15) Estimat Glomerular Filtration Rate 131 ML/MIN (>89) Result Diagram: 04/18/176 04/18/17415 Telemetry: NSR occasional PAC, EKG unchanged from prior (1) Blood loss anemia Plan: stable HGB 10 on ferrous sulfate (2) right groin hematoma Plan: stable (3) NSTEMI (non-ST elevated myocardial infarction) (4) Coronary artery disease Plan: ASA, statin , BB amiodarone OOB ambulate CM to eval for rehab gentle diuresis (5) UTI (urinary tract infection) Plan: enterococcus / klebsiella sensitive to cipro GNR / change to cipro IV now on postop ancef recheck UA in am (6) Legally blind Plan: fall precautions Mildred Sweeney Apr 18, 2017 10:26
[2017-04-18 13:28] LABS: BILIRUBIN, URINE NEG (NEG); BLOOD, URINE NEG (NEG); GLUCOSE,URINE NEG (NEG); HYALINE CAST, URINE 9 /lpf (RARE); KETONE, URINE NEG (NEG); MUCUS URINE FEW /lpf (OCC); NITRITE,URINE NEG (NEG); PH, URINE 5.5 (5.0-8.5); SQUAMOUS EPITHELIAL CELL URINE <1 /hpf (0-5); URINE COLOR LIGHT-YELLOW (YELLW/STRAW); URINE LEUKOCYTE ESTERASE NEG (NEG)
--- NOTE | 2017-04-18 19:21 | EKG ---
Date Performed: 04/18/2017 Time Performed: 05:54:14 PTAGE: 66 years EKG: Sinus rhythm with PAC(s) Poor R wave progression - probable normal variant Low QRS voltages in limb leads Borderl ine ECG PREVIOUS TRACING : 04/18/2017 05.52 Since the previous tracing, no significant change noted DOCTOR: Earnest Duckworth Interpretating Date/Time 04/18/2017 19:19:50
[2017-04-18] MEDS: SODIUM CHLORIDE 5% OPHT SOLN 15 ML BTL EACH EYE SCH (20:52)
[2017-04-18] MEDS: LATANOPROST 0.005% OPHT SOLN 2.5 ML BTL EACH EYE SCH (20:52)
[2017-04-18] MEDS: ATORVASTATIN 80 MG TAB PO SCH (20:53)
[2017-04-18] MEDS: SENNOSIDES 8.6 MG TAB PO SCH (20:53)
[2017-04-18] MEDS: ESCITALOPRAM OXALATE 20 MG TAB PO SCH (20:54)
[2017-04-18] MEDS: TEMAZEPAM 7.5 MG CAP PO PRN (22:00)
[2017-04-19] VITALS (20 sets, daily range): BP systolic 113–129; BP diastolic 66–74; PULSE 67–94; RESP 16–21; TEMP 98–98.6; O2SAT 94–100
[2017-04-19] MEDS: INSULIN ASPART SUPPLEMENTAL SCALE SQ SCH ×6 (02:00→21:00)
[2017-04-19] MEDS: ALPRAZolam 0.25 MG TAB PO SCH ×3 (02:00→18:16)
[2017-04-19] MEDS: oxyCODONE/ACETAMINOPHEN 5 MG/325 MG TAB PO PRN ×4 (03:30→21:29)
[2017-04-19 04:22] LABS: AUTOMATED NEUTROPHIL # 12.1 TH/MM3 (1.8-7.7); BASOPHIL # 0.1 TH/MM3 (0-0.2); BASOPHIL % 0.4 % (0.0-2.0); EOSINOPHIL % 0.1 % (0.0-4.0); HEMATOCRIT 29.7 % (39.0-51.0); HEMOGLOBIN 9.9 GM/DL (13.0-17.0); LYMPH % 9.4 % (9.0-44.0); LYMPHOCYTE # 1.4 TH/MM3 (1.0-4.8); MEAN CELL VOLUME 90.5 FL (80.0-100.0); MEAN CORPUSCULAR HEMOGLOBIN 30.2 PG (27.0-34.0); MEAN CORPUSCULAR HGB CONC 33.4 % (32.0-36.0); MONO % 11.2 % (0.0-8.0); MONOCYTE # 1.7 TH/MM3 (0-0.9); NEUT % 78.9 % (16.0-70.0); PLATELET COUNT 203 TH/MM3 (150-450); RED BLOOD COUNT 3.28 MIL/MM3 (4.50-5.90); RED CELL DISTRIBUTION WIDTH 14.9 % (11.6-17.2); WHITE BLOOD COUNT 15.3 TH/MM3 (4.0-11.0)
[2017-04-19 04:48] LABS: BICARBONATE 31.6 MEQ/L (21.0-32.0); CALCIUM 8.1 MG/DL (8.5-10.1); CREATININE 0.7 MG/DL (0.60-1.30); MAGNESIUM 2.2 MG/DL (1.5-2.5)
[2017-04-19] MEDS: AMIODARONE 200 MG TAB PO SCH ×3 (06:00→21:30)
[2017-04-19] MEDS: RESP: ALBUTEROL 2.5 MG/IPRATROPIUM 0.5 MG NEB (SCH) NEB ×3 (08:21→20:46)
[2017-04-19] MEDS: SODIUM CHLORIDE 0.9% FLUSH 10 ML FLUSH IV FLUSH SCH ×2 (09:00→21:31)
[2017-04-19] MEDS: LIDOCAINE HCL 5% PATCH T-DERMAL SCH (09:00)
[2017-04-19] MEDS ORDERED: FUROSEMIDE 40 MG/4 ML VIAL IV PUSH ONE (09:15)
[2017-04-19] MEDS ORDERED: POTASSIUM CHLORIDE 10 MEQ CAP PO ONE (09:15)
[2017-04-19] MEDS: POLYETHYLENE GLYCOL 17 GM PKG PO SCH (09:24)
[2017-04-19] MEDS: DOCUSATE SODIUM 100 MG CAP PO SCH ×2 (09:25→21:29)
[2017-04-19] MEDS: METOPROLOL TARTRATE 25 MG TAB PO SCH ×2 (09:25→21:29)
[2017-04-19] MEDS: MAGNESIUM HYDROXIDE SUSP 30 ML CUP PO SCH (09:25)
[2017-04-19] MEDS: FAMOTIDINE 20 MG TAB PO SCH (09:26)
[2017-04-19] MEDS: MULTIVITAMINS/MINERALS THERAPEUTIC TAB PO SCH (09:26)
[2017-04-19] MEDS: FERROUS SULFATE 325 MG (65 MG ELEMENTAL IRON) TAB PO SCH ×3 (09:26→18:16)
[2017-04-19] MEDS: ASPIRIN 81 MG CHEW TAB PO SCH (09:26)
--- NOTE | 2017-04-19 15:39 | PD.CAR.PN ---
CVT Progress Note Subjective/Hospital Course: 66/ male known coronary artery disease, with prior stenting of the RCA and anterior wall in 2006. Presented with non-STEMI about 5 days ago, underwent cardiac catheterization that revealed borderline moderate to significant disease of the ostium of the circumflex, diffuse disease of the LAD and ostium of the RCA. He had significant tight posterolateral branch disease, receiving collaterals from the left system. Because of the diffuse disease, he was actually treated medically. He developed a large post catheter right groin hematoma. His hemoglobin actually went from 11 down to 8.9. He did not require and presented back on this admission on 04/09 with having chest pain again, also nausea and vomiting, nonspecific ST changes in the EKG, elevated troponin. He had felt very weak at home. He did not, however, pass out. Apparently he did have significant ecchymosis to the right groin area from the right lower quadrant and around the flank area down to the mid thigh. There is significant ecchymosis to the symphysis pubis and the scrotal area. We were consulted by Dr. Lott to evaluate for coronary artery disease bypass grafting. Apparently the patient does have a daily cocktail and had some agitation last night. They gave him some Ativan and they placed him on fall precautions since he had a presyncopal episode at home. PAST MEDICAL HISTORY: Includes an anterior wall [place] in 2006, recent non-STEMI, . His initial admission was April 05 and then readmission on 04/09. Non-STEMI segment, again with elevated troponins of 0.7. The patient's includes hypertension, hyperlipidemia, osteoarthritis, gastroesophageal reflux disease, obstructive sleep apnea, on CPAP, ischemic cardiomyopathy with ejection fraction of 35-40%, history of mild to moderate carotid disease, ETOH use. He is legally blind. He uses a walking cane. He has had a service dog up until February and he is to receive a new service dog soon. , back surgery 1995, neck surgery 2004, fusion of the coccyx in 2016, pacer ICD in 2006, with a generator change out in 2013. 04/12 pt doing well, PT working with pt, no chest pain ecchymosis right groin , scrotum , right flank unchanged, no hematoma no further agitation, pt states he drinks 2 oz cocktail at night , denies any tremors will transfuse with 2 units PRBC today surgery scheduled for Thursday 04/13 HGB improved 10.6 on room air feels better for surgery on friday 04/14 doing well , no complaints for surgery on Monday 04/17 CABG x 3, CARR to LAD - good, SVG to OM - good, SVG to PDA - fair, L EVH extubated after surgery crystalloid 2100cc, 700cc cell saver, 1400cc EBL/ given solumedrol 04/18 doing well , up in chair add BB on amiodarone ASA, statin pulm toileting, transfer to stepdown 04/19 chest tube drained 130cc/ 12 hrs and additional 100cc this am chest tube now to water seal pulm toileting / OOB ambulate remains in NSR Objective: Vital Signs Date Time Temp Pulse Resp B/P (MAP) Pulse Ox O2 Delivery O2 Flow Rate FiO2 04/19/17 14:00 89 04/19/17 13:00 81 04/19/17 12:00 72 04/19/17 11:00 80 04/19/17 11:00 98.4 89 20 116/71 (86) 98 04/19/17 10:00 94 04/19/17 09:00 82 04/19/17 08:21 94 21 04/19/17 08:00 74 04/19/17 07:30 68 04/19/17 07:30 98.1 72 20 129/74 (92) 94 04/19/17 03:54 67 04/19/17 03:54 98.6 69 16 113/70 (84) 95 04/18/17 23:29 82 04/18/17 23:29 98.7 80 16 127/74 (91) 95 04/18/17 20:13 95 21 04/18/17 19:33 98.6 75 18 118/71 (87) 95 04/18/17 19:00 78 Labs: Laboratory Tests Test 04/19/17 04:05 White Blood Count 15.3 TH/MM3 (4.0-11.0) Red Blood Count 3.28 MIL/MM3 (4.50-5.90) Hemoglobin 9.9 GM/DL (13.0-17.0) Hematocrit 29.7 % (39.0-51.0) Mean Corpuscular Volume 90.5 FL (80.0-100.0) Mean Corpuscular Hemoglobin 30.2 PG (27.0-34.0) Mean Corpuscular Hemoglobin Concent 33.4 % (32.0-36.0) Red Cell Distribution Width 14.9 % (11.6-17.2) Platelet Count 203 TH/MM3 (150-450) Mean Platelet Volume 8.0 FL (7.0-11.0) Neutrophils (%) (Auto) 78.9 % (16.0-70.0) Lymphocytes (%) (Auto) 9.4 % (9.0-44.0) Monocytes (%) (Auto) 11.2 % (0.0-8.0) Eosinophils (%) (Auto) 0.1 % (0.0-4.0) Basophils (%) (Auto) 0.4 % (0.0-2.0) Neutrophils # (Auto) 12.1 TH/MM3 (1.8-7.7) Lymphocytes # (Auto) 1.4 TH/MM3 (1.0-4.8) Monocytes # (Auto) 1.7 TH/MM3 (0-0.9) Eosinophils # (Auto) 0.0 TH/MM3 (0-0.4) Basophils # (Auto) 0.1 TH/MM3 (0-0.2) CBC Comment DIFF FINAL Differential Comment Blood Urea Nitrogen 14 MG/DL (7-18) Creatinine 0.70 MG/DL (0.60-1.30) Random Glucose 105 MG/DL (74-106) Calcium Level 8.1 MG/DL (8.5-10.1) Magnesium Level 2.2 MG/DL (1.5-2.5) Sodium Level 138 MEQ/L (136-145) Potassium Level 4.4 MEQ/L (3.5-5.1) Chloride Level 102 MEQ/L (98-107) Carbon Dioxide Level 31.6 MEQ/L (21.0-32.0) Anion Gap 4 MEQ/L (5-15) Estimat Glomerular Filtration Rate 114 ML/MIN (>89) Result Diagram: 04/19/1740404/19/17404 (1) Blood loss anemia Plan: stable HGB 10> 9.4 on ferrous sulfate (2) right groin hematoma Plan: stable (3) NSTEMI (non-ST elevated myocardial infarction) (4) Coronary artery disease Plan: ASA, statin , BB amiodarone OOB ambulate CM to eval for rehab start plavix when chest tubes out (5) UTI (urinary tract infection) Plan: repeat UA clean (6) Legally blind Plan: fall precautions Mildred Sweeney Apr 19, 2017 15:38
[2017-04-19] MEDS: SODIUM CHLORIDE 5% OPHT SOLN 15 ML BTL EACH EYE SCH (21:00)
[2017-04-19] MEDS: SENNOSIDES 8.6 MG TAB PO SCH (21:29)
[2017-04-19] MEDS: ESCITALOPRAM OXALATE 20 MG TAB PO SCH (21:29)
[2017-04-19] MEDS: TEMAZEPAM 7.5 MG CAP PO PRN (21:29)
[2017-04-19] MEDS: ATORVASTATIN 80 MG TAB PO SCH (21:30)
[2017-04-19] MEDS: LATANOPROST 0.005% OPHT SOLN 2.5 ML BTL EACH EYE SCH (21:31)
[2017-04-20] VITALS (26 sets, daily range): BP systolic 103–131; BP diastolic 56–70; PULSE 63–90; RESP 18–20; TEMP 97.8–99.4; O2SAT 94–100
[2017-04-20] MEDS: oxyCODONE/ACETAMINOPHEN 5 MG/325 MG TAB PO PRN ×3 (02:41→19:03)
[2017-04-20] MEDS: ALPRAZolam 0.25 MG TAB PO SCH ×3 (02:41→16:49)
[2017-04-20] MEDS: AMIODARONE 200 MG TAB PO SCH ×3 (05:18→21:11)
[2017-04-20 05:45] LABS: BICARBONATE 30.1 MEQ/L (21.0-32.0); CALCIUM 8.3 MG/DL (8.5-10.1); CREATININE 0.67 MG/DL (0.60-1.30)
[2017-04-20] MEDS: RESP: ALBUTEROL 2.5 MG/IPRATROPIUM 0.5 MG NEB (SCH) NEB (07:12)
[2017-04-20] MEDS: ASPIRIN 81 MG CHEW TAB PO SCH (08:00)
[2017-04-20] MEDS: FAMOTIDINE 20 MG TAB PO SCH (08:00)
[2017-04-20] MEDS: FERROUS SULFATE 325 MG (65 MG ELEMENTAL IRON) TAB PO SCH ×3 (08:00→16:49)
[2017-04-20] MEDS: MULTIVITAMINS/MINERALS THERAPEUTIC TAB PO SCH (08:00)
[2017-04-20] MEDS: POLYETHYLENE GLYCOL 17 GM PKG PO SCH (08:00)
[2017-04-20] MEDS: METOPROLOL TARTRATE 25 MG TAB PO SCH ×2 (08:00→21:11)
[2017-04-20] MEDS: MAGNESIUM HYDROXIDE SUSP 30 ML CUP PO SCH (08:00)
[2017-04-20] MEDS: INSULIN ASPART SUPPLEMENTAL SCALE SQ SCH ×4 (08:00→21:00)
[2017-04-20] MEDS: DOCUSATE SODIUM 100 MG CAP PO SCH ×2 (08:00→21:10)
[2017-04-20] MEDS: LIDOCAINE HCL 5% PATCH T-DERMAL SCH (08:01)
[2017-04-20] MEDS: SODIUM CHLORIDE 0.9% FLUSH 10 ML FLUSH IV FLUSH SCH ×2 (08:01→21:12)
--- NOTE | 2017-04-20 10:10 | PD.CAR.PN ---
CVT Progress Note Subjective/Hospital Course: 66/ male known coronary artery disease, with prior stenting of the RCA and anterior wall in 2006. Presented with non-STEMI about 5 days ago, underwent cardiac catheterization that revealed borderline moderate to significant disease of the ostium of the circumflex, diffuse disease of the LAD and ostium of the RCA. He had significant tight posterolateral branch disease, receiving collaterals from the left system. Because of the diffuse disease, he was actually treated medically. He developed a large post catheter right groin hematoma. His hemoglobin actually went from 11 down to 8.9. He did not require and presented back on this admission on 04/09 with having chest pain again, also nausea and vomiting, nonspecific ST changes in the EKG, elevated troponin. He had felt very weak at home. He did not, however, pass out. Apparently he did have significant ecchymosis to the right groin area from the right lower quadrant and around the flank area down to the mid thigh. There is significant ecchymosis to the symphysis pubis and the scrotal area. We were consulted by Dr. Lott to evaluate for coronary artery disease bypass grafting. Apparently the patient does have a daily cocktail and had some agitation last night. They gave him some Ativan and they placed him on fall precautions since he had a presyncopal episode at home. PAST MEDICAL HISTORY: Includes an anterior wall [place] in 2006, recent non-STEMI, . His initial admission was April 05 and then readmission on 04/09. Non-STEMI segment, again with elevated troponins of 0.7. The patient's includes hypertension, hyperlipidemia, osteoarthritis, gastroesophageal reflux disease, obstructive sleep apnea, on CPAP, ischemic cardiomyopathy with ejection fraction of 35-40%, history of mild to moderate carotid disease, ETOH use. He is legally blind. He uses a walking cane. He has had a service dog up until February and he is to receive a new service dog soon. , back surgery 1995, neck surgery 2004, fusion of the coccyx in 2016, pacer ICD in 2006, with a generator change out in 2013. 04/12 pt doing well, PT working with pt, no chest pain ecchymosis right groin , scrotum , right flank unchanged, no hematoma no further agitation, pt states he drinks 2 oz cocktail at night , denies any tremors will transfuse with 2 units PRBC today surgery scheduled for Thursday 04/13 HGB improved 10.6 on room air feels better for surgery on friday 04/14 doing well , no complaints for surgery on Monday 04/17 CABG x 3, CARR to LAD - good, SVG to OM - good, SVG to PDA - fair, L EVH extubated after surgery crystalloid 2100cc, 700cc cell saver, 1400cc EBL/ given solumedrol 04/18 doing well , up in chair add BB on amiodarone ASA, statin pulm toileting, transfer to stepdown 04/19 chest tube drained 130cc/ 12 hrs and additional 100cc this am chest tube now to water seal pulm toileting / OOB ambulate remains in NSR 04/20 remains in NSR + 6kg gentle diuresis chest tube removed without difficulty eval for rehab and dc tomorrow Objective: GENERAL: A&O x 3 SKIN: Warm and dry. prevena dressing in place to chest , right groin hematoma improving , incision intact left EVH b operator: Normocephalic. EYES: No scleral icterus. No injection or drainage. NECK: Supple, trachea midline. No JVD or lymphadenopathy. CARDIOVASCULAR: Regular rate and rhythm without murmurs, gallops, or rubs. RESPIRATORY: Breath sounds equal bilaterally. No accessory muscle use. GASTROINTESTINAL: Abdomen soft, non-tender, nondistended. MUSCULOSKELETAL: No cyanosis, or edema. BACK: Nontender without obvious deformity. No CVA tenderness. Vital Signs Date Time Temp Pulse Resp B/P (MAP) Pulse Ox O2 Delivery O2 Flow Rate FiO2 04/20/17 09:00 69 04/20/17 08:00 82 04/20/17 07:43 73 04/20/17 07:15 100 21 04/20/17 07:00 98.0 78 18 124/70 (88) 94 04/20/17 06:00 72 04/20/17 05:12 69 04/20/17 04:18 66 04/20/17 03:17 97.8 72 19 115/66 (82) 96 04/20/17 03:17 68 04/20/17 02:20 67 04/20/17 01:15 65 04/20/17 00:50 68 04/19/17 23:25 98.1 83 21 126/69 (88) 95 04/19/17 23:25 77 04/19/17 22:46 84 04/19/17 21:20 80 04/19/17 20:46 98 21 04/19/17 20:40 78 04/19/17 19:50 98.0 80 20 127/67 (87) 96 04/19/17 19:50 79 04/19/17 18:00 78 04/19/17 17:00 75 04/19/17 16:00 83 04/19/17 15:00 71 04/19/17 15:00 98.0 85 20 119/66 (83) 100 04/19/17 14:00 89 04/19/17 13:00 81 04/19/17 12:00 72 04/19/17 11:00 80 04/19/17 11:00 98.4 89 20 116/71 (86) 98 Labs: Laboratory Tests Test 04/20/17 04:01 Blood Urea Nitrogen 14 MG/DL (7-18) Creatinine 0.67 MG/DL (0.60-1.30) Random Glucose 88 MG/DL (74-106) Calcium Level 8.3 MG/DL (8.5-10.1) Sodium Level 139 MEQ/L (136-145) Potassium Level 4.1 MEQ/L (3.5-5.1) Chloride Level 101 MEQ/L (98-107) Carbon Dioxide Level 30.1 MEQ/L (21.0-32.0) Anion Gap 8 MEQ/L (5-15) Estimat Glomerular Filtration Rate 119 ML/MIN (>89) Result Diagram: 04/19/17 0405 04/20/17 040 (1) Blood loss anemia Plan: stable HGB 10> 9.4 on ferrous sulfate (2) right groin hematoma Plan: stable (3) NSTEMI (non-ST elevated myocardial infarction) (4) Coronary artery disease Plan: ASA, statin , BB amiodarone OOB ambulate CM to eval for rehab start plavix chest tube removed eval for rehab (5) UTI (urinary tract infection) Plan: repeat UA clean (6) Legally blind Plan: fall precautions Mildred Sweeney Apr 20, 2017 10:09
[2017-04-20] MEDS ORDERED: FUROSEMIDE 40 MG/4 ML VIAL IV PUSH ONE (10:15)
[2017-04-20] MEDS ORDERED: POTASSIUM CHLORIDE 20 MEQ CONTROLLED RELEASE TAB PO ONE (10:15)
[2017-04-20] MEDS: SODIUM CHLORIDE 5% OPHT SOLN 15 ML BTL EACH EYE SCH (21:00)
[2017-04-20] MEDS: SENNOSIDES 8.6 MG TAB PO SCH (21:10)
[2017-04-20] MEDS: ATORVASTATIN 80 MG TAB PO SCH (21:11)
[2017-04-20] MEDS: ESCITALOPRAM OXALATE 20 MG TAB PO SCH (21:11)
[2017-04-20] MEDS: LATANOPROST 0.005% OPHT SOLN 2.5 ML BTL EACH EYE SCH (21:25)
[2017-04-20] MEDS: TEMAZEPAM 7.5 MG CAP PO PRN (21:25)
[2017-04-21] VITALS (11 sets, daily range): BP systolic 108–145; BP diastolic 62–78; PULSE 62–75; RESP 18; TEMP 98–98.4; O2SAT 95–98
[2017-04-21] MEDS: oxyCODONE/ACETAMINOPHEN 5 MG/325 MG TAB PO PRN ×2 (01:47→08:34)
[2017-04-21] MEDS: ALPRAZolam 0.25 MG TAB PO SCH ×2 (02:14→09:49)
--- NOTE | 2017-04-21 05:27 | RADRPT ---
EXAM DATE/TIME: 04/21/2017 04:38 [facility] COMPARISON: CHEST SINGLE AP, April 18, 2017, 4:03. INDICATIONS : Chest tube removal/Pneumothorax. MEDICAL HISTORY : Congestive heart failure. Myocardial infarction SURGICAL HISTORY : Pacemaker. 4 heart stents, defibrillator ENCOUNTER: Subsequent ACUITY: 3 days PAIN SCORE: 0/10 LOCATION: Bilateral chest FINDINGS: A single view of the chest demonstrates developing bibasilar airspace disease, right worse in left. N o associated effusions. Heart size is borderline prominent but is grossly well compensated. Left-side d thoracostomy tube has been removed without pneumothorax. Left subclavian bipolar pacer is radiograp hically intact. Anterior fixation of lower cervical spine. Intact median sternotomy wires. CONCLUSION: 1. Interval removal of a left-sided thoracostomy tube without pneumothorax. 2. Developing bibasilar atelectatic changes, right greater than left. 3. Borderline prominent but well compensated heart. Eric López MD on April 21, 2017 at 5:24 Board Certified Radiologist. This report was verified electronically.
[2017-04-21] MEDS: AMIODARONE 200 MG TAB PO SCH (06:23)
[2017-04-21] MEDS: INSULIN ASPART SUPPLEMENTAL SCALE SQ SCH (08:00)
[2017-04-21] MEDS: DOCUSATE SODIUM 100 MG CAP PO SCH (08:33)
[2017-04-21] MEDS: POLYETHYLENE GLYCOL 17 GM PKG PO SCH (08:33)
[2017-04-21] MEDS: MAGNESIUM HYDROXIDE SUSP 30 ML CUP PO SCH (08:33)
[2017-04-21] MEDS: FERROUS SULFATE 325 MG (65 MG ELEMENTAL IRON) TAB PO SCH (08:33)
[2017-04-21] MEDS: FAMOTIDINE 20 MG TAB PO SCH (08:33)
[2017-04-21] MEDS: METOPROLOL TARTRATE 25 MG TAB PO SCH (08:34)
[2017-04-21] MEDS: MULTIVITAMINS/MINERALS THERAPEUTIC TAB PO SCH (08:34)
[2017-04-21] MEDS: ASPIRIN 81 MG CHEW TAB PO SCH (08:34)
[2017-04-21] MEDS: SODIUM CHLORIDE 0.9% FLUSH 10 ML FLUSH IV FLUSH SCH (08:35)
[2017-04-21] MEDS: LIDOCAINE HCL 5% PATCH T-DERMAL SCH (08:36)
[2017-04-21] MEDS ORDERED: RAMIPRIL 1.25 MG CAP PO SCH (09:00)
[2017-04-21] MEDS ORDERED: CLOPIDOGREL 75 MG TAB PO SCH (09:00)
[2017-04-21] MEDS ORDERED: PLAV75TA29 PO (11:14)
[2017-04-21] MEDS ORDERED: OXYC1TAB63 PO (11:14)
[2017-04-21] MEDS ORDERED: ASPI81 PO (11:14)
[2017-04-21] MEDS ORDERED: DOCU1CAP39 PO (11:14)
[2017-04-21] MEDS ORDERED: METO25TA3 PO (11:14)
[2017-04-21] MEDS ORDERED: TEMA7.5C9 PO (11:14)
[2017-04-21] MEDS ORDERED: THERM PO (11:14)
[2017-04-21] MEDS ORDERED: FERR325T20 PO (11:14)
--- NOTE | 2017-04-21 11:18 | HHI.DS ---
Discharge Summary Admission Date Apr 09, 2017 at 15:56 Discharge Date: Apr 21, 2017 Admitting Diagnosis NSTEMI; Ecchymosis; N/V (1) S/P CABG (coronary artery bypass graft) Diagnosis: Secondary ICD Codes: Z95.1 - Presence of aortocoronary bypass graft (2) CAD (coronary artery disease) Diagnosis: Principal ICD Codes: I25.10 - Atherosclerotic heart disease of [place] coronary artery without angina pectoris (3) Ischemic cardiomyopathy Diagnosis: Principal ICD Codes: I25.5 - Ischemic cardiomyopathy (4) Legally blind Diagnosis: Principal ICD Codes: H54.8 - Legal blindness, as defined in [place] (5) Blood loss anemia Diagnosis: Secondary ICD Codes: D50.0 - Iron deficiency anemia secondary to blood loss (chronic) Procedures CABG x 3 04/17 CARR to LAD - good SVG to OM - good SVG to PDA - fair EVH RAMIN Brief History 66/ male known coronary artery disease, with prior stenting of the RCA and anterior wall in 2006. Presented with non-STEMI about 5 days ago, underwent cardiac catheterization that revealed borderline moderate to significant disease of the ostium of the circumflex, diffuse disease of the LAD and ostium of the RCA. He had significant tight posterolateral branch disease, receiving collaterals from the left system. Because of the diffuse disease, he was actually treated medically. He developed a large post catheter right groin hematoma. His hemoglobin actually went from 11 down to 8.9. He did not require and presented back on this admission on 04/09 with having chest pain again, also nausea and vomiting, nonspecific ST changes in the EKG, elevated troponin. He had felt very weak at home. He did not, however, pass out. Apparently he did have significant ecchymosis to the right groin area from the right lower quadrant and around the flank area down to the mid thigh. There is significant ecchymosis to the symphysis pubis and the scrotal area. We were consulted by Dr. Lott to evaluate for coronary artery disease bypass grafting. Apparently the patient does have a daily cocktail and had some agitation last night. They gave him some Ativan and they placed him on fall precautions since he had a presyncopal episode at home. PAST MEDICAL HISTORY: Includes an anterior wall FL in 2006, recent non-STEMI, . His initial admission was April 05 and then readmission on 04/09. Non-STEMI segment, again with elevated troponins of 0.7. The patient's includes hypertension, hyperlipidemia, osteoarthritis, gastroesophageal reflux disease, obstructive sleep apnea, on CPAP, ischemic cardiomyopathy with ejection fraction of 35-40%, history of mild to moderate carotid disease, ETOH use. He is legally blind. He uses a walking cane. He has had a service dog up until February and he is to receive a new service dog soon. , back surgery 1995, neck surgery 2004, fusion of the coccyx in 2016, pacer ICD in 2006, with a generator change out in 2013. CBC/BMP: 04/19/17 0405 04/20/17 0401 Significant Findings Laboratory Tests Test 04/18/17 11:20 04/19/17 04:05 04/20/17 04:01 Urine Mucus FEW /lpf (OCC) White Blood Count 15.3 TH/MM3 (4.0-11.0) Red Blood Count 3.28 MIL/MM3 (4.50-5.90) Hemoglobin 9.9 GM/DL (13.0-17.0) Hematocrit 29.7 % (39.0-51.0) Neutrophils (%) (Auto) 78.9 % (16.0-70.0) Monocytes (%) (Auto) 11.2 % (0.0-8.0) Neutrophils # (Auto) 12.1 TH/MM3 (1.8-7.7) Monocytes # (Auto) 1.7 TH/MM3 (0-0.9) Calcium Level 8.1 MG/DL (8.5-10.1) 8.3 MG/DL (8.5-10.1) Anion Gap 4 MEQ/L (5-15) Imaging Last Impressions Chest X-Ray 04/21/17 0600 Signed Impressions: Service Date/Time: Friday, April 21, 2017 04:38 - CONCLUSION: 1. Interval removal of a left-sided thoracostomy tube without pneumothorax. 2. Developing bibasilar atelectatic changes, right greater than left. 3. Borderline prominent but well compensated heart. Eric López MD Lower Extremity Ultrasound 04/11/17 0000 Signed Impressions: Service Date/Time: Tuesday, April 11, 2017 09:13 - CONCLUSION: 1. Lower extremity venous mapping, as above. Joel Anderson MD Carotid Artery Ultrasound 04/11/17 0000 Signed Impressions: Service Date/Time: Tuesday, April 11, 2017 09:33 - CONCLUSION: 1. Mild calcified plaque in the right internal carotid origin with resultant moderate, 50-69%%, stenosis. This is likely in the lower part of this range. 2. No significant left carotid flow-limiting stenosis. 3. Antegrade vertebral artery flow bilaterally. Joel Anderson MD PE at Discharge GENERAL: A&O x 3 SKIN: Warm and dry. prevena dressing to chest , eft leg incision intact and well approximated, right groin hematoma improving HEAD: Normocephalic. EYES: No scleral icterus. No injection or drainage. / legally blind NECK: Supple, trachea midline. No JVD or lymphadenopathy. CARDIOVASCULAR: Regular rate and rhythm without murmurs, gallops, or rubs. RESPIRATORY: Breath sounds equal bilaterally. No accessory muscle use. GASTROINTESTINAL: Abdomen soft, non-tender, nondistended. MUSCULOSKELETAL: No cyanosis, or edema. BACK: Nontender without obvious deformity. No CVA tenderness. Hospital Course 04/12 pt doing well, PT working with pt, no chest pain ecchymosis right groin , scrotum , right flank unchanged, no hematoma no further agitation, pt states he drinks 2 oz cocktail at night , denies any tremors will transfuse with 2 units PRBC today surgery scheduled for Thursday 04/13 HGB improved 10.6 on room air feels better for surgery on friday 04/14 doing well , no complaints for surgery on Monday 04/17 CABG x 3, CARR to LAD - good, SVG to OM - good, SVG to PDA - fair, L EVH extubated after surgery crystalloid 2100cc, 700cc cell saver, 1400cc EBL/ given solumedrol 04/18 doing well , up in chair add BB on amiodarone ASA, statin pulm toileting, transfer to stepdown 04/19 chest tube drained 130cc/ 12 hrs and additional 100cc this am chest tube now to water seal pulm toileting / OOB ambulate remains in NSR 04/20 remains in NSR + 6kg gentle diuresis chest tube removed without difficulty eval for rehab and dc tomorrow 04/21 pt doing well remains on room air / NSR ok for dc to rehab today Pt Condition on Discharge: Good Discharge Disposition: Rehab Inpatient Discharge Instructions DIET: Follow Instructions for: Heart Healthy Diet Activities you can perform: Full Weight Bearing, Shower Only-No Bath Activities to avoid: Prolonged Standing, Strenuous Activity, Driving Additional Activity Instructio: no lifting > 8 lbs or gallon of milk Follow up Referrals: Cardiology - 4 Weeks with Alfrdeo Lott MD PCP Follow-up - 2 Weeks with Darian Harrell MD Surgical - 2 Weeks with Mildred Sweeney New Orders: BASIC METABOLIC PROF - 2 Weeks CBC NO DIFF - 2 Weeks X-RAY CHEST PA & LAT - 2 Weeks New Medications: Aspirin (Tgt Aspirin) 81 Mg Chw 81 MG PO DAILY for Blood Clot Prevention, #30 EA 2 Refills Clopidogrel (Plavix) 75 Mg Tab 75 MG PO DAILY for Blood Clot Prevention, #30 TAB 2 Refills Docusate Sodium (Dok) 100 Mg Cap 100 MG PO BID for Constipation, #60 CAP 0 Refills Ferrous Sulfate (Ferosul) 325 Mg (65 Mg Iron) Tablet 325 MG PO BIDPC for anemia , #60 TAB 2 Refills Metoprolol Tartrate (Metoprolol Tartrate) 25 Mg Tab 25 MG PO BID for Blood Pressure Management, #60 TAB 2 Refills Multiple Vitamins W/ Minerals (Thera M Plus) 1 Tab 1 TAB PO DAILY for multi vitamin, #30 TAB 2 Refills Oxycodone HCl/Acetaminophen (Oxycodone-Acetaminophen 5-325) 5 Mg-325 Mg Tablet 1 TAB PO Q4H PRN for PAIN SCALE 1 TO 5, #40 TAB 0 Refills Temazepam (Restoril) 7.5 Mg Cap 7.5 MG PO HS PRN for Insomnia, #30 CAP 0 Refills Continued Medications: Atorvastatin (Atorvastatin) 80 Mg Tab 80 MG PO HS for Cholesterol Management, #30 TAB 0 Refills Escitalopram (Escitalopram) 20 Mg Tab 20 MG PO HS, #30 TAB 0 Refills Ipratropium Nasal (Ipratropium Nasal) 0.03% [place] 1 SPRAY EACH NARE TID Latanoprost Opth Drops (Latanoprost Opth Drops) 0.005% Drops 1 DROP EACH EYE HS for Glaucoma, #2.5 ML 0 Refills Refrigerate until opened. Lidocaine (Lidoderm) 5 % Adh..patch 1 PATCH TD DAILY for Pain, #30 PATCH 1 Refill Apply 1 patch daily to right low back and right lateral hip as needed for pain control Ramipril (Ramipril) 5 Mg Cap 5 MG PO DAILY @ 1400, #30 CAP 0 Refills Ranitidine (Zantac) 150 Mg Tab 150 MG PO DAILY for Reduce Stomach Acid, #30 TAB 0 Refills [place] ([place]ren[place] Repens) (Saw [place] (Serenoa Repens)) 450 Mg Cap 1 CAP PO DAILY, CAP 0 Refills Sodium Chloride Opth Drops (Joshua 128 Opth Drops) 5% Soln 1 DROP EACH EYE BID, #1 BOTTLE 0 Refills Spironolactone (Spironolactone) 25 Mg Tab 25 MG PO DAILY, #30 TAB 0 Refills Vitamin A (Vitamin A) 8,000 Unit Capsule 1 CAP PO BID Discontinued Medications: Aspirin (Aspirin) 81 Mg Chew 162 MG CHEW DAILY, #1 TAB 0 Refills Celecoxib (Celecoxib) 200 Mg Cap 200 MG PO BID for Pain Management, CAP 0 Refills Digoxin (Digoxin) 0.25 Mg Tab 0.125 MG PO HS for Regulate Heart Beat, #30 TAB 0 Refills Isosorbide Mononitrate ER (Isosorbide Mononitrate ER) 30 Mg [place] 90 MG PO DAILY for Prevent Chest Pain, #30 TAB 0 Refills Metoprolol Succinate ER 24 HR (Toprol XL) 100 Mg Tab 100 MG PO DAILY, #30 TAB 0 Refills Nitroglycerin SL (Nitroglycerin SL) 0.4 Mg Subl 0.4 MG SL DIRECTED PRN for CHEST PAIN, #100 TAB.SL 0 Refills ONE TABLET UNDER THE TONGUE NEEDED FOR CHEST PAIN, MAY REPEAT EVERY FIVE MINUTES FOR A TOTAL OF 3 DOSES OR CALL 911 IF NO RELIEF Oxycodone-Acetaminophen (Oxycodone-Acetaminophen) 10-325 mg Tab 1 TAB PO Q6H PRN for PAIN, #90 TAB 0 Refills Testosterone Topical (Androgel Pump Topical) 1.62 % Gel 81 MG TOPICAL DAILY for Hormone Replacement, #1 BOTTLE 0 Refills Mildred Sweeney Apr 21, 2017 11:18
== END 2017-04-21 11:55 | DRG 236 ==
LOC: NEPE 13:09 → NEDA 15:56 → HCIS 17:28 → HCPC 04-11 14:18 → HCIS 04-17 07:15 → HCVI 04-17 11:52 → HCPC 04-19 06:11
PROVIDERS: ADMIT Thoracic Surgery (Cardiothoracic Vascular Surgery); ATTEND Thoracic Surgery (Cardiothoracic Vascular Surgery)
PROC: 30233N1 Transfusion of Nonautologous Red Blood Cells into Peripheral Vein, Percutaneous Approach (ICD-10-PCS; 2017-04-12)
PROC: 06BQ4ZZ Excision of Left Saphenous Vein, Percutaneous Endoscopic Approach (ICD-10-PCS; 2017-04-17)
PROC: 5A1221Z Performance of Cardiac Output, Continuous (ICD-10-PCS; 2017-04-17)
PROC: B246ZZ4 Ultrasonography of Right and Left Heart, Transesophageal (ICD-10-PCS; 2017-04-17)
PROC: 02100Z9 Bypass Coronary Artery, One Artery from Left Internal Mammary, Open Approach (ICD-10-PCS; principal; 2017-04-17 07:12)
PROC: 021109W Bypass Coronary Artery, Two Arteries from Aorta with Autologous Venous Tissue, Open Approach (ICD-10-PCS; 2017-04-17 07:12)
DX: I22.2 Subsequent non-ST elevation (NSTEMI) myocardial infarction (principal); I11.0 Hypertensive heart disease with heart failure; I50.9 Heart failure, unspecified; I25.10 Atherosclerotic heart disease of native coronary artery without angina pectoris; Z99.81 Dependence on supplemental oxygen; N39.0 Urinary tract infection, site not specified; D62 Acute posthemorrhagic anemia; I97.610 Postprocedural hemorrhage of a circulatory system organ or structure following a cardiac catheterization; R44.3 Hallucinations, unspecified; I21.4 Non-ST elevation (NSTEMI) myocardial infarction; F32.9 Major depressive disorder, single episode, unspecified; I49.3 Ventricular premature depolarization; Z79.82 Long term (current) use of aspirin; M19.90 Unspecified osteoarthritis, unspecified site; E78.5 Hyperlipidemia, unspecified; K21.9 Gastro-esophageal reflux disease without esophagitis; I25.5 Ischemic cardiomyopathy; H54.8 Legal blindness, as defined in USA; F41.9 Anxiety disorder, unspecified; G89.29 Other chronic pain; I25.2 Old myocardial infarction; Z95.5 Presence of coronary angioplasty implant and graft; Z95.810 Presence of automatic (implantable) cardiac defibrillator; R19.7 Diarrhea, unspecified; G62.9 Polyneuropathy, unspecified; Z87.891 Personal history of nicotine dependence; R55 Syncope and collapse; R11.2 Nausea with vomiting, unspecified; Z82.49 Family history of ischemic heart disease and other diseases of the circulatory system; Z80.9 Family history of malignant neoplasm, unspecified; G47.33 Obstructive sleep apnea (adult) (pediatric); Y83.8 Other surgical procedures as the cause of abnormal reaction of the patient, or of later complication, without mention of misadventure at the time of the procedure; Y92.9 Unspecified place or not applicable; T42.4X5A Adverse effect of benzodiazepines, initial encounter; Y92.239 Unspecified place in hospital as the place of occurrence of the external cause; I65.29 Occlusion and stenosis of unspecified carotid artery
CPT/HCPCS: 36430; 71045; 71046; 76937; 80048; 80053; 81001; 82550; 82552; 82948; 83036; 83735; 84484; 85014; 85018; 85025; 85027; 85576; 85610; 85730; 86850; 86900; 86901; 86920; 87077; 87086; 87186; 87641; 93005; 93306; 93318; 93880; 93926; 93970; 93998; 94002; 94010; 94150; 94640; 94664; 94667; 94668; 99291; C9113; J0131; J0171; J0690; J0696; J0744; J1644; J1650; J1815; J1817; J1940; J2060; J2250; J2370; J2405; J2440; J2720; J2930; J3010; J3370; J3475; J7050; J7120; P9016; P9045